=== PATIENT | female | born 1950 | race Caucasian/White ===

== ENCOUNTER → 2016-11-10 | Outpatient (CLI) | payer MEDICARE ==
--- NOTE | 2016-11-11 10:40 | MM ---
Reason for exam: screening (asymptomatic). Last mammogram was performed 1 year and 1 month ago. History: Patient is postmenopausal and has history of endometrial cancer at age 27. Took estrogen for 27 years. Physical Findings: A clinical breast exam by your physician is recommended on an annual basis and results should be correlated with mammographic findings. MG 3D Screening Mammo W/Cad Bilateral CC and MLO view(s) were taken. Prior study comparison: October 24, 2015, bilateral MG 3d screening mammo w/cad. October 10, 2014, bilateral MG screening mammo w CAD. The breast tissue is almost entirely fat. There is no discrete abnormality. No significant changes when compared with prior studies. ASSESSMENT: Negative, BI-RAD 1 RECOMMENDATION: Routine screening mammogram of both breasts in 1 year.
== END | disposition home or self-care (01) ==
LOC: RADMAMWWP 15:06
PROVIDERS: ATTEND Internal Medicine
DX: Z12.31 Encounter for screening mammogram for malignant neoplasm of breast (principal)
CPT/HCPCS: 77063; G0202

== ENCOUNTER → 2017-11-15 | Outpatient (CLI) | payer MEDICARE ==
--- NOTE | 2017-11-15 16:39 | BD ---
EXAMINATION TYPE: Axial Bone Density DATE OF EXAM: 11/15/2017 CLINICAL HISTORY: Height: 65 & 3/4 Weight: 143 FRAX RISK QUESTIONS: Alcohol (3 or more units per day): no Family History (Parent hip fracture): no Glucocorticoids (More than 3mos): no (Ex: prednisone, prednisolone, methylprednisolone, dexamethasone, and hydrocortisone). History of Fracture in Adulthood: no Secondary Osteoporosis: 1. Type 1 Diabetes: no 2. Hyperthyroidism: no 3. Menopause before 45: hysterectomy age 27 4. Malnutrition: no 5. Chronic liver disease: no Rheumatoid Arthritis: yes Current Tobacco Use: no RISK FACTORS HISTORY OF: Family History of Osteoporosis: no Active: yes Diet low in dairy products/other sources of calcium: not daily, several times a week Postmenopausal woman: yes Take estrogen and/or progesterone medications: not now How long: about 27years Lost more than 2 inches in height since high school: unsure Frequent falls: no Poor Health: no Hyperparathyroidism: no Adrenal Insufficiency: no MEDICATIONS: Prednisone or other steroids: no Thyroid Medications: no Which medication: Levothyroxine How Long: at least 10 years Osteoporosis Medications: no Additional Medications: fish oil, blood pressure meds, cholesterol meds Additional History: endometrial CA age 27 EXAM MEASUREMENTS: Bone mineral densitometry was performed using the [employer] System. Bone mineral density as measured about the Lumbar spine is: ----- L1-L4(G/cm2): 1.144 T Score Values are as follows: ----- L2: -1.5 ----- L3: -0.9 ----- L4: 2.1 ----- L1-L4: -0.3 Bone mineral density has: Increased 4.0% since study of: 08/18/2010 Bone mineral density about the R hip (g/cm2): 0.721 Bone mineral density about the L hip (g/cm2): 0.828 T Score values are as follows: -----R Neck: -2.3 -----L Neck: -1.5 -----R Total: -1.8 -----L Total: -1.5 Bone mineral density has: Decreased -7.9% since study of: 08/18/2010 IMPRESSION: Osteopenia (T Score between -2.5 and -1). There is slightly increased risk of fracture and the patient may be considered for treatment. Re-Screen 2-5 years. NOTE: T-SCORE=SD OF THE YOUNG ADULT MEAN.
--- NOTE | 2017-11-16 08:04 | MM ---
Reason for exam: screening (asymptomatic). Last mammogram was performed 1 year ago. History: Patient is postmenopausal and has history of endometrial cancer at age 27. Took estrogen for 27 years. Physical Findings: A clinical breast exam by your physician is recommended on an annual basis and results should be correlated with mammographic findings. MG 3D Screening Mammo W/Cad Bilateral CC and MLO view(s) were taken. Prior study comparison: November 10, 2016, bilateral MG 3d screening mammo w/cad. October 24, 2015, bilateral MG 3d screening mammo w/cad. There are scattered fibroglandular densities. No significant changes when compared with prior studies. ASSESSMENT: Benign, BI-RAD 2 RECOMMENDATION: Routine screening mammogram of both breasts in 1 year.
== END | disposition home or self-care (01) ==
LOC: RADMAMWWP 07:22
PROVIDERS: ATTEND Internal Medicine Geriatric Medicine
DX: Z12.31 Encounter for screening mammogram for malignant neoplasm of breast (principal); Z13.820 Encounter for screening for osteoporosis; M85.80 Other specified disorders of bone density and structure, unspecified site
CPT/HCPCS: 77063; 77067; 77080

== ENCOUNTER → 2018-10-27 | Outpatient (CLI) | payer MEDICARE ==
--- NOTE | 2018-10-27 16:44 | XR ---
Lumbosacral spine HISTORY: Low back pain 5 views of the lumbosacral spine There is a dextroscoliosis centered at L3-4. There is multilevel spondylosis. No evident spondylolysi s. Lumbar vertebral bodies show preserved height. Bone mineralization is reduced. Loss of disc height present especially L4-5 with associated vacuum phenomenon. Sclerosis present in the posterior elemen ts. Vascular calcifications are noted incidentally. IMPRESSION: Scoliosis, degenerative disc disease, osteopenia, facet arthropathy.
== END | disposition home or self-care (01) ==
LOC: LABWHC1 10:56
PROVIDERS: ATTEND Nurse Practitioner Family
DX: M51.37 Other intervertebral disc degeneration, lumbosacral region (principal); M46.97 Unspecified inflammatory spondylopathy, lumbosacral region; M41.87 Other forms of scoliosis, lumbosacral region; M85.88 Other specified disorders of bone density and structure, other site
CPT/HCPCS: 72110

== ENCOUNTER → 2018-12-23 | Outpatient (CLI) | payer MEDICARE ==
--- NOTE | 2018-12-25 09:41 | MM ---
Reason for exam: screening (asymptomatic). Last mammogram was performed 1 year and 1 month ago. History: Patient is postmenopausal and has history of endometrial cancer at age 27. Took hormonal contraceptives for 7 years. Took estrogen for 27 years. Physical Findings: A clinical breast exam by your physician is recommended on an annual basis and results should be correlated with mammographic findings. MG Screening Mammo w CAD Bilateral CC and MLO view(s) were taken. Prior study comparison: November 15, 2017, bilateral MG 3d screening mammo w/cad. November 10, 2016, bilateral MG 3d screening mammo w/cad. There are scattered fibroglandular densities. There is no discrete abnormality. No significant changes when compared with prior studies. ASSESSMENT: Negative, BI-RAD 1 RECOMMENDATION: Routine screening mammogram of both breasts in 1 year.
== END | disposition home or self-care (01) ==
LOC: RADMAMWWP 08:31
PROVIDERS: ATTEND Internal Medicine Geriatric Medicine
DX: Z12.31 Encounter for screening mammogram for malignant neoplasm of breast (principal)
CPT/HCPCS: 77067

== ENCOUNTER → 2019-10-03 | Outpatient (CLI) | payer MEDICARE ==
--- NOTE | 2019-10-03 23:09 | MR ---
EXAMINATION TYPE: MR lumbar spine wo/w con DATE OF EXAM: 10/03/2019 COMPARISON: Lumbar spine x-ray October 27, 2018 HISTORY: Spinal enthesopathy, lumbar, lower back and left leg pain for 1 year per patient. TECHNIQUE: Multiplanar, multisequence images of the lumbar spine is performed without and with IV contrast, util izing 6.5 mL intravenous Gadavist FINDINGS: There is persistent dextroconvex scoliosis centered at L3-L4 level. Sagittal images of the lumbar spine show vertebral body heights to remain satisfactory. Alignment is straightened. Multileve l disc desiccation with advanced disc space narrowing L3-L4 and L4-L5 levels. Moderate disc space francisca rowing with vacuum disc phenomenon seen at L1-L2 and L2-L3 levels. Moderate multilevel anterior spurr ing. Heterogeneous Modic type I endplate changes and anterior L3-L4 and Modic type II endplate change s anteriorly L4-L5 levels. No suspicious postcontrast enhancement. The conus medullaris is normal in position and signal ending at mid L1 level. Axial images show the T12-L1 level to appear within normal limits. Axial images at L1-L2 level shows slight grade 1 anterolisthesis. There is mild to moderate broad dis c bulge with right paracentral disc protrusion component facing anterior thecal sac. Bilateral neural foramina are patent. Axial images at L2-L3 level show moderate broad disc bulge effacing the anterior thecal sac and mild facet degenerative changes bilaterally. There is mild to moderate right greater than left bilateral a nterior inferior neural foraminal narrowing. Axial images at L3-L4 level show spondylolisthesis with advanced broad disc bulge and mild/moderate f acet degenerative changes and ligamentum flavum hypertrophy. Most prominent spinal canal effacement s een at this level axial image 13. There is mild to moderate right-sided and more severe left-sided ne ural foraminal narrowing, for reference axial image 5 shows encroachment along the anterior inferior left L3 nerve corresponding to axial image 13. Axial images at L4-L5 level show moderate to advanced broad-based posterior disc protrusion with post erior spurring. There is moderate to advanced facet arthropathy right greater than left. There is eff acement of the anterior and right lateral thecal sac. There is moderate to advanced bilateral neural foraminal narrowing with likely encroachment on both L4 nerves. Axial images at L5-S1 level show mild/moderate facet degenerative changes bilaterally. Spinal canal i s preserved. Bilateral neural foramina are patent. No suspicious incidental retroperitoneal findings. IMPRESSION: Scoliotic curvature of lumbar spine with multilevel spondylolisthesis and multilevel mode rate to advanced degenerative changes greatest at L3-L4 and L4-L5 levels as detailed above.
== END | disposition home or self-care (01) ==
LOC: RADMRIMAIN 18:03
PROVIDERS: ATTEND Internal Medicine Geriatric Medicine
DX: M41.86 Other forms of scoliosis, lumbar region (principal); M43.16 Spondylolisthesis, lumbar region; M47.896 Other spondylosis, lumbar region
CPT/HCPCS: 72158; A9585

== ENCOUNTER → 2020-01-11 | Outpatient (CLI) | payer MEDICARE ==
--- NOTE | 2020-01-11 15:53 | BD ---
EXAMINATION TYPE: Axial Bone Density DATE OF EXAM: 01/11/2020 COMPARISON: DEXA bone scan November 15, 2017 CLINICAL HISTORY: Postmenopausal female. Age related osteoporosis. Height: 66 Weight: 140.0 FRAX RISK QUESTIONS: Alcohol (3 or more units per day): no Family History (Parent hip fracture): no Glucocorticoids (More than 3mos): no (Ex: prednisone, prednisolone, methylprednisolone, dexamethasone, and hydrocortisone). History of Fracture in Adulthood: no Secondary Osteoporosis: 1. Type 1 Diabetes: no 2. Hyperthyroidism: no 3. Menopause before 45: no 4. Malnutrition: no 5. Chronic liver disease: no Rheumatoid Arthritis: yes Current Tobacco Use: no RISK FACTORS HISTORY OF: Family History of Osteoporosis: no Active: yes Diet low in dairy products/other sources of calcium: yes Postmenopausal woman: yes Lost more than 2 inches in height since high school: no MEDICATIONS: blood [pressure meds, cholesterol meds Thyroid Medications: levothyroxine How Lon years Additional History: EXAM MEASUREMENTS: Bone mineral densitometry was performed using the [employer] System. Bone mineral density as measured about the Lumbar spine is: ----- L1-L4(G/cm2): 1.199 T Score Values are as follows: ----- L2: -1.7 ----- L3: 0.1 ----- L4: 303 ----- L1-L4: 0.2 Bone mineral density has: increased 6.9 % since study of: 11.15.2017 Bone mineral density about the R hip (g/cm2): 0.679 Bone mineral density about the L hip (g/cm2): 0.806 T Score values are as follows: -----R Neck: -2.6 -----L Neck: -1.7 -----R Total: -2.3 -----L Total: -2.0 Bone mineral density has: decreased -8.1 % since study of: 11.15.2017 IMPRESSION: Osteoporosis (T Score less than -2.5) femoral neck level right hip now is present. There is increased fracture risk and therapy is usually indicated based on age. Re-Screen 1-2 years. NOTE: T-SCORE=SD OF THE YOUNG ADULT MEAN.
--- NOTE | 2020-01-15 08:23 | MM ---
Reason for exam: screening (asymptomatic). Last mammogram was performed 1 year and 1 month ago. History: Patient is postmenopausal and has history of endometrial cancer at age 27. Took hormonal contraceptives for 7 years. Took estrogen for 27 years. Physical Findings: A clinical breast exam by your physician is recommended on an annual basis and results should be correlated with mammographic findings. MG 3D Screening Mammo W/Cad Bilateral CC and MLO view(s) were taken. Prior study comparison: December 23, 2018, bilateral MG screening mammo w CAD. November 15, 2017, bilateral MG 3d screening mammo w/cad. There are scattered fibroglandular densities. No significant changes when compared with prior studies. ASSESSMENT: Negative, BI-RAD 1 RECOMMENDATION: Routine screening mammogram of both breasts in 1 year.
== END | disposition home or self-care (01) ==
LOC: RADMAMWWP 14:22
PROVIDERS: ATTEND Internal Medicine Geriatric Medicine
DX: Z12.31 Encounter for screening mammogram for malignant neoplasm of breast (principal); M81.0 Age-related osteoporosis without current pathological fracture
CPT/HCPCS: 77063; 77067; 77080

== ENCOUNTER → 2021-01-15 | Outpatient (CLI) | payer MEDICARE ==
--- NOTE | 2021-01-16 15:01 | MM ---
Reason for exam: screening (asymptomatic). Last mammogram was performed 1 year ago. History: Patient is postmenopausal and has history of endometrial cancer at age 27. Took hormonal contraceptives for 7 years. Took estrogen for 27 years. Physical Findings: A clinical breast exam by your physician is recommended on an annual basis and results should be correlated with mammographic findings. MG 3D Screening Mammo W/Cad Bilateral CC and MLO view(s) were taken. Prior study comparison: January 11, 2020, bilateral MG 3d screening mammo w/cad. December 23, 2018, bilateral MG screening mammo w CAD. There are scattered fibroglandular densities. No significant changes when compared with prior studies. ASSESSMENT: Benign, BI-RAD 2 RECOMMENDATION: Routine screening mammogram of both breasts in 1 year.
== END | disposition home or self-care (01) ==
LOC: RADMAMWWP 09:52
PROVIDERS: ATTEND Internal Medicine Geriatric Medicine
DX: Z12.31 Encounter for screening mammogram for malignant neoplasm of breast (principal); Z78.0 Asymptomatic menopausal state; Z85.42 Personal history of malignant neoplasm of other parts of uterus
CPT/HCPCS: 77063; 77067

== ENCOUNTER → 2021-10-09 | Outpatient (CLI) | payer MEDICARE ==
--- NOTE | 2021-10-09 18:02 | MR ---
EXAMINATION TYPE: MR lumbar spine wo con DATE OF EXAM: 10/09/2021 COMPARISON: Radiograph from 1122 HISTORY: 71-year-old female M47.26, Low back pain, spondylosis TECHNIQUE: Multiplanar, multisequence images of the lumbar spine were acquired without IV contrast. FINDINGS: There is a marked degenerated dextroconvex scoliosis centered along the mid to lower lumbar spine. Se seun associated degenerative disc disease along the left side of concavity with edematous Modic type I endplate change at L2-L3 and mixed type I and type II endplate change at L3-L4. Vertebral body heights are preserved. Degenerative grade 1 anterolisthesis L1-L2. Degenerative grade 1 retrolisthesis L4-L5. There are left lateral subluxations at L1-L2 and L2-L3. Conus medullaris is normal. Vertebral body heights are preserved. At T12-L1, mild disc bulge. No significant canal or foraminal stenosis. At L1-L2, there is facet arthropathy, trace grade 1 anterolisthesis, bulging disc. There is mild flat tening of the thecal sac but no significant spinal canal stenosis. Changes result in moderate right n euroforaminal stenosis. At L2-L3, diffuse disc bulge with ligamentum flavum thickening and facet arthropathy. Mild overall sp inal canal stenosis and moderate bilateral neuroforaminal stenosis. Disc material abuts the intrafora paula right L2 nerve root. At L3-L4, hypertrophic facet arthropathy with ligamentum flavum thickening and diffuse disc bulge. Th ere is mild overall spinal canal stenosis as well as left lateral recess stenosis. Changes result in moderate to severe left and moderate right neuroforaminal stenosis. At L4-L5, hypertrophic facet arthropathy with ligamentum flavum thickening and degenerative grade 1 r etrolisthesis. Disc osteophyte complex formation. There is moderate overall spinal canal stenosis as well as right lateral recess stenosis. Changes result in moderate to severe right and moderate left n eural foraminal stenosis. At L5-S1, diffuse disc bulge, ligamentum flavum thickening, and facet arthropathy. Mild attenuation o f the thecal sac without significant spinal canal stenosis. Changes result in severe right and mild l eft neural foraminal stenosis. Large stool burden. Suspect an extrarenal pelvis right kidney. IMPRESSION: 1. Markedly degenerated dextroconvex scoliosis centered along the mid to lower lumbar spine. Advanced degenerative disc disease along the left side of concavity with mixed Modic type I and type II endpl ate change at L2-L3 and L3-L4. 2. Multilevel hypertrophic facet arthropathy and ligamentum flavum thickening. Degenerative grade 1 s pondylolisthesis L1-L2 and L4-L5. Degenerative left lateral subluxations at L1-L2 and L2-L3. 3. At L4-L5, moderate overall spinal canal stenosis along with right lateral recess stenosis. Moderat e to severe right and moderate left neuroforaminal stenosis. 4. At L3-L4, mild overall spinal canal stenosis as well as left lateral recess stenosis. Moderate to severe left and moderate right neural foraminal stenosis. 5. At L2-L3, mild overall spinal canal stenosis and moderate bilateral neuroforaminal stenosis. Disc material abuts the intraforaminal right L2 nerve root. 6. At L5-S1, severe right neuroforaminal stenosis.
== END | disposition home or self-care (01) ==
LOC: RADMRIMAIN 12:50
PROVIDERS: ATTEND Orthopaedic Surgery
DX: M51.26 Other intervertebral disc displacement, lumbar region (principal); M48.061 Spinal stenosis, lumbar region without neurogenic claudication; M99.73 Connective tissue and disc stenosis of intervertebral foramina of lumbar region
CPT/HCPCS: 72148

== ENCOUNTER → 2021-10-12 | Outpatient (CLI) | payer MEDICARE ==
[2021-10-12 12:51] VITALS: BP 158/71; PULSE 63; RESP 18; TEMP 98.1
--- NOTE | 2021-10-12 15:05 | P.PAINPG ---
PQRS Measure Charge Sheet Comment: HISTORY OF PRESENT ILLNESS: 71 yr old female as a referral from [facility], [place] presents today w severe and chronic LBP secondary to spinal stenosis, DDD, neuroforaminal stenoses and facet arthropathy for evaluation. Pt states her pain level is currently at 7/10 in intensity, constant, burning, sore, achy in character, localized in the lower aspect of uri lumbar spine w radiation to the RLE. Palliated with injections in the past at [facility], medications (Voltaren gel), patches, sitting and rest. She has not tried PT, chiropractic treatments or massage therapy. PMH: HTN, Hyperlipidemia, Hypothyroidism, RA, OA, Seasonal Allergies PSH: Colonoscopy, Hysterectomy (1978), C section (1974) SH: Negative x 3 FH: Non contributory All: NKDA Meds: See list REVIEW OF ORGAN SYSTEMS: CONSTITUTIONAL: No fevers or chills. No recent weight loss. NEUROLOGICAL: + numbness and tingling along the distal extremities. No seizure disorders or headaches. MUSCULOSKELETAL: + pain PSYCHIATRIC: Denies current depression or suicidal thoughts. Physical Examinations : Constitutional : Cooperative , not in acute distress . Neurologic : Cranial nerve II to XII intact. No focal neurological deficits. Psychiatric : alert & oriented x 3. Matching mood & appropriate affect. Judgment & insight intact. Musculoskeletal : Cervical Spine Motor strength in the deltoid and biceps: Normal right side. Normal Left side Motor strength biceps and the wrist extensors: Normal right side . Normal left side Motor strength in the triceps muscle: Normal right side. Normal left side Deep tendon reflexes: Normal at the biceps. Normal at Brachioradialis. Normal at triceps Vertebral body tenderness to deep palpation over Cervical facet loading test: positive bilaterally Spurling test: positive bilaterally Neck distraction test: positive bilat erally Nelda sign: positive bilaterally Lumbar spine Motor strength lower extremities ,thigh and legs 5/5 Right side , 5/5 Left side Deep tendon reflexes : Normal Knee Jerk. Normal Ankle Jerk Vertebral body tenderness over L4 Lumbar facet Loading Test: positive Right / positive Left Range of motion of the lumbar spine Flexion 30 degrees, extension 10 degrees Straight Leg Raise test: Left/ Right positive at 30 degree Kian test: positive right / positive left. Severe tenderness over the Sacroiliac joint on the Right / Left sides Gaenslen test: positive bilaterally Seated flexion test: positive bilate rally. Sacral spine : Severe tenderness over the Sacroiliac joint: right side / left side Range of motion: Flexion of the lumbar spine <60 degrees Range of motion: Extension of the lumbar spine <20 degrees Gaenslen's Test positive Victor Manuel's Test positive Kian test: positive right side / left side Thigh Thrust Test Sacral Thrust Test Imaging: MRI without contrast of the lumbar spine from 10/09/21 reviewed Assessment/ Plan : Lumbar stenosis, Lumbar DDD Recommendation of R TFESI L4-L5. May need a series of injections, up to 3 within a 6 mo period, for optimal pain relief. Risks, benefits of procedure discussed and patient verbalized understanding. Denies aspirin or anti- coagulant use or medical history of diabetes. Protocol for discontinuation/ continuation of medications monalisa procedure discussed. All questions answered. I have spent greater than 30 minutes on patient care today. Dr Aguilera was available by phone for the evaluation of this patient. The time was used to review the medical records including relevant urine studies and Prescription history (MAPs), review of the available imaging, evaluation and examination of the patient, coordination of care with the medical staff and if applicable referring physicians, as well as creation of the medical record PQRS Narrative: Smoking Status Former smoker Home Medications: Ambulatory Orders Aspirin 81 mg PO DAILY 10/29/14 Fexofenadine/Pseudoephedrine [Melanie-D 12 Hour Tablet] 1 tab PO DAILY PRN 10/29/14 Levothyroxine Sodium [Synthroid] 100 mcg PO QAM 10/29/14 Lisinopril/Hydrochlorothiazide [Lisinopril-Hctz 10-12.5 mg Tab] 1 tab PO QAM 10/29/14 [place]-3 Fatty Acids/Fish Oil [Fish Oil 1,000 mg Softgel] 1 cap PO DAILY 10/29/14 Controlled Substance Measures - Controlled Substance Measures Is patient prescribed a controlled substance at discharge?: No
== END ==
LOC: PNWHC3 10:00
PROVIDERS: ATTEND Specialist
DX: M47.26 Other spondylosis with radiculopathy, lumbar region (principal); Z87.891 Personal history of nicotine dependence
CPT/HCPCS: 99211

== ENCOUNTER → 2021-11-23 | Outpatient (CLI) | payer MEDICARE ==
[2021-11-23 10:56] VITALS: BP 186/86; PULSE 60; RESP 18
--- NOTE | 2021-11-23 16:19 | P.PAINPG ---
PQRS Measure Charge Sheet Comment: A 71 yr old female with a history of severe and chronic low back pain secondary to lumbar degenerative disc diseases and lumbar spondylosis with facet arthropathy without myelopathy presents today for evaluation s/p R TFESI L4-L5. Pt states she experienced 50% pain relief x 2 wks s/p procedure. Pain level is currently at 6/10 in intensity, constant, achy/ sharp/ shooting towards the RLE. Pain is provoked by walking/standing for periods of 10 min or more. Pain is alleviated with medications (Aleve, Baclofen), home stretching regimen, topicals, sitting, repositioning and rest. Interventional pain procedures completed include R TFESI L4-L5 Patient is currently on Baclofen, Aleve OTC. Patient denies any side effects of the medication(s), denies excessive drowsiness or sleepiness, denies suicidal ideation and reports that the current pain medication is helping to control the pain and improve activities of daily living. Patient denies any motor or sensory deficits. Patient denies any fever or night sweats, denies any change in the bowel movements or urination. Physical Examination: -Constitutional: Cooperative. Not in acute distress . - Neurologic: Cranial nerve II to XII intact. No focal neurological deficits. - Psychatric: Alert & oriented x 3. Matching mood & appropriate affect. Judgmen t and insight intact. - Musculoskeletal: Cervical spine: Muscle bulk/ tone/ strength in the bilateral upper extremities normal Vertebral body tenderness to palpation over Spurling test positive Distraction test positive Facet loading test positive Thoracic spine Muscle bulk / tone/ strength in the bilateral paraspinal muscles normal Vertebral body tender to palpation over Facet loading test positive Lumbar spine: Motor bulk/ tone/ strength lower extremities , thigh and legs : 5/5 Deep tendon reflexes : Normal Knee Jerk. Normal Ankle Jerk . Vertebral body tenderness to palpation over L4 Lumbar Facet Loading Test positive Straight Leg Raise: positive at 30 degrees right side/ left side Gaenslen's Test positive Sacral spine : Severe tenderness over the Sacroiliac joint: right side / left side Range of motion: Flexion of the lumbar spine <60 degrees Range of motion: Extension of the lumbar spine <20 degrees Gaenslen's Test positive Victor Manuel's Test positive Kian test: positive right side / left side Thigh Thrust Test Sacral Thrust Test Assessment and plan: Chronic low back pain secondary to lumbar degenerative disc disease , lumbar spondylosis with facet arthropathy without myelopathy Recommendation of R TFESI L4-L5 #2. May need a series of injections, up to 3 within a 6 mo period, for optimal pain relief. Risks, benefits of procedure discussed and pt verbalized understanding. Denies anticoagulant use or medical history of diabetes. All patient questions answered MAPS reviewed and it was appropriate. I have spent less than 30 minutes on patient care today. Dr Aguilera was available by phone for the evaluation of this patient. The time was used to review the medical records including relevant urine studies and Prescription history (MAPs), review of the available imaging, evaluation and examination of the patient, coordination of care with the medical staff and if applicable referring physicians, as well as creation of the medical record PQRS Narrative: Smoking Status Former smoker Hx Alcohol Use (MH) Yes: OCCASIONAL Home Medications: Ambulatory Orders Fexofenadine/Pseudoephedrine [Melanie-D 12 Hour Tablet] 1 tab PO DAILY PRN 10/29/14 Levothyroxine Sodium [Synthroid] 100 mcg PO QAM 10/29/14 Lisinopril/Hydrochlorothiazide [Lisinopril-Hctz 10-12.5 mg Tab] 1 tab PO QAM 10/29/14 [place]-3 Fatty Acids/Fish Oil [Fish Oil 1,000 mg Softgel] 1 cap PO DAILY 10/29/14 Naproxen Sodium [Aleve] 220 mg PO BID 10/30/21 Baclofen 5 mg PO DAILY 11/23/21 Controlled Substance Measures - Controlled Substance Measures Is patient prescribed a controlled substance at discharge?: No
== END ==
LOC: PNWHC3 10:37
PROVIDERS: ATTEND Specialist
DX: M51.36 Other intervertebral disc degeneration, lumbar region (principal); M47.816 Spondylosis without myelopathy or radiculopathy, lumbar region; Z87.891 Personal history of nicotine dependence; G89.29 Other chronic pain
CPT/HCPCS: 99211

== ENCOUNTER 2021-12-24 06:22 | Day surgery (SDC) | payer MEDICARE ==
[2021-12-24 06:55] VITALS: TEMP 98.3
[2021-12-24] MEDS ORDERED: LACTATED RINGERS 1,000 ML IV ONE (06:57)
[2021-12-24] MEDS ORDERED: MIDAZOLAM 2 MG/2 ML VIAL ONE (07:02)
[2021-12-24] MEDS ORDERED: DEXAMETHASONE SOD PHOSPHATE 10 MG/ML 1 ML VIAL ONE (07:02)
[2021-12-24] MEDS ORDERED: fentaNYL (PF) 50 MCG/ML 2 ML AMP ONE (07:02)
[2021-12-24] MEDS ORDERED: IOPAMIDOL M200 10 ML VIAL ONE (07:02)
--- NOTE | 2021-12-24 07:20 | P.PCN ---
Date of Procedure: 12/24/21 Description of Procedure: PREOPERATIVE DIAGNOSIS: Lumbar lumbar spondylosis without myelopathy, Lumbar radiculopathy. POSTOPERATIVE DIAGNOSIS: Lumbar spondylosis without myelopathy, and Lumbar radiculopathy. PROCEDURE: 1) right side L5-LS1 Transforaminal epidural steroid injection under fluoroscopic guidance, 2) Epidurogram SURGEON: Fco Pascal MD ANESTHESIA: Local 1% lidocaine, and IV sedation: Versed, and fentanyl. Sedation time: EBL: None. Specimen removed: None Fluoroscopic imaging: saved to electronic medical record PROCEDURE INDICATION: The patient with continued lumbar pain with radiculopathy, and intervertebral disc disease without myelopathy that has failed to respond to adequate conservative management. Patient had improvement of >80% with previous TFESI for >4 weeks. Currently 50% since first TFESI overall PROCEDURE DESCRIPTION: The patient was seen and identified in the preoperative area. Risks, benefits, complications, and alternatives were discussed with the patient. The patient agreed to proceed with the procedure and signed the consent. IV was started, and vital signs were stable. Patient was taken to the OR and time out was completed. The patient was placed in the prone position on procedure table and a pillow was placed under the abdomen to reduce lumbar lordosis. The lumbosacral area was prepped with ChloraPrep 1 and draped in the usual sterile fashion. Critical pause was taken. Vital signs were closely monitored during the procedure. Using oblique fluoroscopy, the chin of the Adarsh dog L5 was identified, and the skin and deeper tissues just below was localized with 1% lidocaine. 22-guage 3.5-inch spinal needles were used for the procedure. The needles were guided by fluoroscopy just underneath the chin of the Adarsh dog of L5. Under AP fluoroscopy, the needles were advanced to the 6 o'clock position of the L5 pedicle. After negative aspiration of CSF and blood and with no paresthesias, 1 mL of [id number] contrast dye was injected anterior epidural spread and outlining of the L5 nerve root. 3 mL of block solution injected after negative aspiration. Block solution contained 10 mg of dexamethasone, with 2 mL of normal saline preservative-free. Needle was removed intact, skin was cleansed, and bandages were applied. COMPLICATIONS: None. DISPOSITION : The patient was placed in a supine position and transferred to the recovery area in a stable condition for observation and was discharged from the recovery room after meeting discharge criteria. Home discharge instructions given to the patient by the staff. The patient was reexamined prior to discharge. The patient will schedule repeat injection in 4 weeks duration.
[2021-12-24] MEDS ORDERED: IV FLUID CONTINUATION 1,000 ML IV ONE (07:21)
[2021-12-24 07:25] VITALS: RESP 18
[2021-12-24 07:39] VITALS: BP 155/81; PULSE 65
--- NOTE | 2021-12-24 09:21 | FL ---
EXAMINATION TYPE: FL guided pain mgmt statistic DATE OF EXAM: 12/24/2021 HISTORY: Fluoroscopy time 5 seconds of fluoroscopy provided. IMPRESSION: 1. Fluoroscopy time.
== END 2021-12-24 07:50 | disposition home or self-care (01) ==
LOC: ORPAIN 06:22
PROVIDERS: ATTEND Anesthesiology
DX: M47.26 Other spondylosis with radiculopathy, lumbar region (principal)
CPT/HCPCS: 64483; J2250; J1100; J3010; Q9966; 99152

== ENCOUNTER → 2022-04-01 | Outpatient (CLI) | payer MEDICARE ==
--- NOTE | 2022-04-02 13:13 | BD ---
EXAMINATION TYPE: Axial Bone Density DATE OF EXAM: 04/01/2022 COMPARISON: 01/11/2020 CLINICAL HISTORY: 71 years year old Female. ICD-10 CODE: M81.0 OSTEOPOROSIS Nuclear Medicine Study in the last 2 weeks: Barium Study in the last week: : Height: Weight: FRAX RISK QUESTIONS: Alcohol (3 or more units per day): NO Family History (Parent hip fracture): NO Glucocorticoids (More than 3mos): YES History of Fracture in Adulthood: NO Secondary Osteoporosis: 1. Type 1 Diabetes: NO 2. Hyperthyroidism: NO 3. Menopause before 45: YES 4. Malnutrition: NO 5. Chronic liver disease: NO Rheumatoid Arthritis: YES Current Tobacco Use: NO RISK FACTORS HISTORY OF: Hip Fracture (Right/Left): NO Spine Fracture: NO History of Wrist Fracture: NO Surgery to Spine/Hip(right/left)/Wrist (right/left): NO Family History of Osteoporosis: NO Active: SOMEWHAT Diet low in dairy products/other sources of calcium: YES Postmenopausal woman: YES Take estrogen and/or progesterone medications: NO Lost more than 2 inches in height since high school: YES Frequent falls: NO Poor Health: NO Hyperparathyroidism: NO Adrenal Insufficiency: NO MEDICATIONS: Prednisone or other steroids: METHOTREXATE How Long: PAST 5 YEARS Thyroid Medications: SYNTHROID Which medication: PAST 10 YEARS Osteoporosis Medications: NO Additional Medications: BP MEDS, CHOLESTEROL MEDS, REFLUX MEDS, DEPRESSION MEDS, FISH OIL, VIT D, FOL IC ACID, CALCIUM, EXAM MEASUREMENTS: Bone mineral densitometry was performed using the [employer] System. Bone mineral density as measured about the Lumbar spine is: ----- L1-L4(G/cm2): 0.983 T Score Values are as follows: ----- L1: -2.9 ----- L2: -2.7 ----- L3: -1.0 ----- L4: 0.7 ----- L1-L4: -1.6 Bone mineral density has: DECREASED -16.8 % since study of: 01/11/2020 Bone mineral density about the R hip (g/cm2): 0.681 Bone mineral density about the L hip (g/cm2): 0.762 T Score values are as follows: -----R Neck: -2.6 -----L Neck: -2.0 -----R Total: -2.3 -----L Total: -2.4 Bone mineral density has: DECREASED -3.5 % since study of: 01/11/2020 FRAX%s: The graph provided illustrates a 29.7% chance for a major osteoporotic fx and a 11.0% chance for the hips probability for fx in 10 years time. IMPRESSION: Osteoporosis (T Score less than -2.5). There is increased fracture risk and therapy is usually indicated based on age. Re-Screen 1-2 years. NOTE: T-SCORE=SD OF THE YOUNG ADULT MEAN.
--- NOTE | 2022-04-04 19:23 | MM ---
Reason for Exam: Screening (asymptomatic). Last mammogram was performed 1 year(s) and 2 month(s) ago. Patient History: Menarche at age 14. First Full-Term at age 21. Left ovary removed at age 27. Right ovary removed at age 27. Hysterectomy at age 27. Postmenopausal. Patient used Estrogen for 27 years. Patient used Hormonal Contraceptives for 7 years. Risk Values: Liz 5 year model risk: 1.4%. NCI Lifetime model risk: 4.0%. Prior Study Comparison: 12/23/2018 Bilateral Screening Mammogram, [facility]. 01/11/2020 Bilateral Screening Mammogram, [facility]. 01/15/2021 Bilateral Screening Mammogram, [facility]. Tissue Density: There are scattered fibroglandular densities. Findings: Analyzed By CAD. There is no suspicious group of microcalcifications or new suspicious mass in either breast. Overall Assessment: Negative, BI-RAD 1 Management: Screening Mammogram of both breasts in 1 year. 1. Patient should continue monthly self breast exams. 2. A clinical breast exam by your physician is recommended on an annual basis. 3. This exam should not preclude additional follow-up of suspicious palpable abnormalities. Electronically signed and approved by: Brenda Ivey M.D. Radiologist
== END | disposition home or self-care (01) ==
LOC: RADBDWWP 16:07
PROVIDERS: ATTEND Internal Medicine Geriatric Medicine
DX: Z12.31 Encounter for screening mammogram for malignant neoplasm of breast (principal); M81.0 Age-related osteoporosis without current pathological fracture; Z78.0 Asymptomatic menopausal state; Z79.52 Long term (current) use of systemic steroids
CPT/HCPCS: 77063; 77067; 77080

== ENCOUNTER → 2023-05-09 | Outpatient (CLI) | payer MEDICARE ==
--- NOTE | 2023-05-09 16:11 | MM ---
Reason for Exam: Screening (asymptomatic). Last mammogram was performed 1 year(s) and 1 month(s) ago. Patient History: Menarche at age 14. First Full-Term at age 21. Left ovary removed at age 27. Right ovary removed at age 27. Hysterectomy at age 27. Postmenopausal. Patient used Estrogen for 27 years. Patient used Hormonal Contraceptives for 7 years. Risk Values: Liz 5 year model risk: 1.4%. NCI Lifetime model risk: 3.8%. Prior Study Comparison: 01/11/2020 Bilateral Screening Mammogram, [facility]. 01/15/2021 Bilateral Screening Mammogram, [facility]. 04/01/2022 Bilateral MG 3D screening mammo w/cad, [facility]. Tissue Density: The breast tissue is heterogeneously dense. This may lower the sensitivity of mammography. Findings: Analyzed By CAD. The pattern is symmetrical. No significant interval change is evident No suspicious groups of microcalcifications, spiculated or lobular masses, architectural distortion or other secondary signs of malignancy are mammographically apparent. Overall Assessment: Benign, BI-RAD 2 Management: Screening Mammogram of both breasts in 1 year. A negative mammogram report should not preclude additional follow up of suspicious palpable abnormalities. Patient should continue monthly self breast exam. A clinical breast exam by your physician is recommended on an annual basis and results should be correlated with mammographic findings. Electronically signed and approved by: Abiodun Martinez D.O. Radiologis
== END | disposition home or self-care (01) ==
LOC: RADMAMWWP 09:35
PROVIDERS: ATTEND Internal Medicine Geriatric Medicine
DX: Z12.31 Encounter for screening mammogram for malignant neoplasm of breast (principal); Z78.0 Asymptomatic menopausal state
CPT/HCPCS: 77063; 77067

== ENCOUNTER → 2023-09-20 | Outpatient (CLI) | payer MEDICARE ==
--- NOTE | 2023-09-20 11:09 | CT ---
EXAMINATION TYPE: CT lumbar spine wo con CT DLP: 405.80 mGycm, Automated exposure control for dose reduction was used. DATE OF EXAM: 09/20/2023 10:47 AM COMPARISON: MR lumbar spine 10/09/2021, 10/03/2019. CLINICAL INDICATION:Female, 73 years old with history of M41.86 OTHER FORMS OF SCOLIOSIS, LUMBAR JOHN ON; PHH, Low back pain, other forms of scoliosis, no injury nor sx TECHNIQUE: Multiple axial images were obtained from the midportion of T11 through the sacroiliac bryce nts. Soft tissue and bone windows in coronal and sagittal planes were obtained and reviewed. Contrast used: none. Oral contrast used: none. FINDINGS: Alignment: There are 5 lumbar type vertebral bodies. Dextro scoliotic curvature of the lumbar spine w ith apex at L3-L4. No significant spondylolisthesis. Bone: No evidence of fracture is identified. Multilevel osteophytosis with endplate sclerosis and va cuum disc disease. Discs: T12-L1: No spinal canal or neural foraminal stenosis is identified. L1-L2: Broad-based disc bulge with mild effacement of the anterior thecal sac. Bilateral facet arthro pradeep. Mild right neural foraminal stenosis. The left neural foramen is patent. L2-L3: Broad-based disc bulge with ligamentum flavum buckling and bilateral facet arthropathy resulti ng in mild central canal stenosis. Lateral extension of the disc bulge to the right neural foramen. M ild left and moderate right neural foraminal stenosis. L3-L4: Broad-based disc bulge and ligamentum flavum buckling and bilateral facet arthropathy resultin g in mild central canal stenosis. Moderate left and [id number] right neural foraminal stenosis. L4-L5: Broad-based disc bulge with ligamentum flavum buckling. Bilateral facet arthropathy most prono unced on the right. This results in moderate central canal stenosis. Moderate bilateral neural forami nal stenosis. L5-S1: Broad-based disc bulge with mild effacement of the anterior thecal sac. Bilateral facet arthro pradeep resulting in mild bilateral neuroforaminal stenosis. 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 Atherosclerotic calcification of the aorta and its branches. IMPRESSION: 1. No evidence for spinal fracture. 2. Overall similar examination with markedly degenerated dextroconvex scoliosis of the mid to lower l umbar spine. 3. Advanced degenerative disease again demonstrated with multilevel facet arthropathy and ligamentum flavum thickening redemonstrated. L4-L5 moderate central canal stenosis and mild central canal stenos is at L1-L4 and L5-S1. Varying degrees of neural foraminal stenosis as described above. Please refer to dedicated MRI lumbar spine the same day for findings.
--- NOTE | 2023-09-20 20:57 | MR ---
EXAMINATION TYPE: MR lumbar spine wo con DATE OF EXAM: 09/20/2023 10:47 AM CLINICAL INDICATION:Female, 73 years old with history of M41.86 OTHER FORMS OF SCOLIOSIS, LUMBAR JOHN ON; PHH, Lumbar scoliosis, RLE radiculopathy. COMPARISON: None TECHNIQUE: Multi planar, multi sequence imaging was performed utilizing: T1-weighted, T2-weighted, a nd turbo inversion recovery imaging of the lumbar spine. IV Contrast: cc . (None if empty) FINDINGS: Alignment: The lumbar vertebral bodies have preserved heights with scoliotic alignment. DEXA scoliosi s apex right L3. Cord: The conus medullaris and the distal spinal cord appear unremarkable with regards to their signa l intensity and morphology. Bones/Discs: Severe degeneration changes of the spine with scoliosis. Dextroscoliosis apex L3. Reacti ve edema is mild adjoining endplates where there is degeneration and facet joint arthropathy. Pseudoa rthrosis of the right lateral process of L5 and the sacrum. T12-L1: No evidence of significant spinal canal stenosis or neural foraminal stenosis. L1-L2: Disc bulge and facet joint arthropathy result in mild spinal canal and mild to moderate bilate ral neural foraminal stenosis. L2-L3: Disc bulge and facet joint arthropathy result in mild spinal canal and severe right with vikki ened appearance of the exiting nerve and moderate left neural foraminal stenosis. L3-L4: Disc bulge and facet joint arthropathy result in mild spinal canal and severe left and moderat e right neural foraminal stenosis. L4-L5: Disc bulge and facet joint arthropathy result in moderate spinal canal and moderate severe lef t and severe right neural foraminal stenosis. L5-S1: The disc has a rounded posterior morphology without significant spinal canal stenosis. Facet j oint arthropathy with moderate to severe bilateral neural foraminal stenosis. No significant spinal canal or neural foraminal stenosis in the remainder of the visualized levels. Other findings: None. IMPRESSION: No definitive evidence of disc herniation or significant spinal canal stenosis. Severe disc degeneration with associated osteoarthritic changes and scoliosis. Multilevel neural foraminal stenosis of moderate, severe and moderate to severe severity as described above. Right neural foraminal stenosis worse at L4-L5 with severe, L3-L4 with moderate, L2-L3 severe right and L5-S1 moderate to severe bilateral. On the left worse at L3-L4 with severe left.
== END | disposition home or self-care (01) ==
LOC: RADCTMAIN 09:47
PROVIDERS: ATTEND Orthopaedic Surgery
DX: M51.16 Intervertebral disc disorders with radiculopathy, lumbar region (principal); M47.26 Other spondylosis with radiculopathy, lumbar region; M48.061 Spinal stenosis, lumbar region without neurogenic claudication; M41.86 Other forms of scoliosis, lumbar region; M99.73 Connective tissue and disc stenosis of intervertebral foramina of lumbar region; M24.28 Disorder of ligament, vertebrae
CPT/HCPCS: 72131; 72148

== ENCOUNTER → 2023-12-28 | Outpatient (CLI) | payer MEDICARE ==
--- NOTE | 2023-12-28 13:43 | XR ---
EXAMINATION TYPE: XR chest 2V DATE OF EXAM: 12/28/2023 COMPARISON: NONE TECHNIQUE: PA and lateral views submitted. HISTORY: Presurgical FINDINGS: The lungs are clear and there is no pneumothorax, pleural effusion, or focal pneumonia. Heart size normal and no overt failure. Osseous structures demonstrate hypertrophic and degenerative changes of the spine. Changes of COPD. Osteopenia. Atherosclerotic change aorta. Nodular densities overlying the anterior margin are likely secondary to the first rib. Vague nodular density in the left upper lobe. IMPRESSION: 1. No acute process. 2. Recommend short-term follow-up apical lordotic view to assess the bilateral lung apices. [facility], , 12/28/2023 1:41 PM
== END | disposition home or self-care (01) ==
LOC: RADXRMAIN 13:24
PROVIDERS: ATTEND Internal Medicine Geriatric Medicine
CPT/HCPCS: 71046

== ENCOUNTER → 2024-01-12 | Outpatient (CLI) | payer MEDICARE | END | disposition home or self-care (01) | LOC: LABPAT 10:35 | PROVIDERS: ATTEND Orthopaedic Surgery | DX: Z01.812 Encounter for preprocedural laboratory examination (principal); M48.062 Spinal stenosis, lumbar region with neurogenic claudication; M54.16 Radiculopathy, lumbar region; Z22.322 Carrier or suspected carrier of Methicillin resistant Staphylococcus aureus | CPT/HCPCS: 86850; 86900; 86901; 87070 ==

== ENCOUNTER 2024-01-19 05:38 | Inpatient (IN) | payer MEDICARE ==
[~2024-01-19 05:38] MED LIST: ONDANSETRON 4 MG/2 ML VIAL IVP PRN; TRANEXAMIC 1,000 MG/100ML-NACL 1,000 MG in SALINE 1 100ML.BAG IVPB PRN
[2024-01-19] MEDS ORDERED: LIDOCAINE 1% (10MG/ML) FOR IV START INTRADERMA PRN (05:46)
[2024-01-19] MEDS: IV FLUID CONTINUATION 1,000 ML IV ONE ×2 (06:11)
[2024-01-19] MEDS: LACTATED RINGERS 1,000 ML IV SCH ×2 (06:28→16:59)
--- NOTE | 2024-01-19 06:33 | P.HPOR ---
History of Present Illness H&P Date: 01/12/24 .D:Date: 01/12/24 : 01:58pm .T:Title: PRE-OP H1 [facility] [address] [place] [address] [place] [address]| DO DAILY LINTON, MSN, PROFESSOR OF BIOLOGY-C DEMOGRAPHICS: Age: 73 year Height: 5'6" Weight: 138 lbs BP:/ BMI: 22.27 kg/m2 Occupation: Retired HISTORY: Ms. Stephens presents to the office today, 01/12/24, for pre-operative evaluation preceding her [id number] decompression and fusion. The patient reports experiencing a continued ache-like pain across the low back that intermittently radiates up into the mid back region. She states her low back pain radiates down into the right lower extremity with a shooting, burning quality. She notes her right leg pain is associated with numbness and tingling. She notes progressive bilateral leg weakness. She states anytime she is standing and looks downward she feels off balance. She notes several falls from standing over the last 1 to 2 years. She states her symptoms worsen when standing and walking and at night time. She notes she can only walk approximately 1 block before having to rest due to severe low back and leg pain. She states her symptoms have significantly worsened over the last 1 year. She has trialed all conservative measures listed below with only mild, temporary relief. She is currently taking Aleve for relief of her current symptoms. Otherwise, the patient denies any f/c/sob/cp, perineal numbness or tingling, bowel, or bladder incontinence/retention. Patient is ambulatory independently. The patients past social, medical, family, surgical history, as well as review of systems, have been reviewed. Please refer to the History and Physical form that has been scanned into our electronic medical record system. 16 points review of systems completed and as stated in HPI, all other systems reviewed are negative. PAST TREATMENTS: PAST IMAGING: - Yes TRAUMA RELATED: - No WORK RELATED: - No PT IN LAST 6 MONTHS: - No PHYSICIAN DIRECTED HOME EXERCISE PROGRAM: - Yes; no significant relief ACTIVITY MODIFICATION: - Yes MEDICATIONS: - Aleve ALTERNATIVE INTERVENTIONS (CHIROPRACTIC, ACUPUNCTURE, MASSAGE, RICE): - Yes (home heat/ice therapies & rest); mild, temporary relief BRACING: - No INJECTIONS (AIYANA, TF, RFA): - Yes; several lumbar ESIs with no relief (completed several years ago) MEDICAL HISTORY: Past Medical History: REVIEWED STATED IN CHART Past Surgical History: REVIEWED STATED IN CHART Social History: REVIEWED STATED IN CHART SMOKING: Non-smoker SUBSTANCES: None Family History: REVIEWED STATED IN CHART Current Medications: Rx: Aleve Ref: 0 Instructions: PRN Rx: Melanie Ref: 0 Rx: atorvastatin 10 mg tablet Ref: 0 Instructions: take 1 tablet (10 mg) by oral route once daily Rx: baclofen 5 mg tablet Ref: 0 Instructions: take 1 tablet (5 mg) by oral route 2 times per day as needed Rx: esomeprazole magnesium 40 mg capsule,delayed release Ref: 0 Instructions: take 1 capsule (40 mg) by oral route 2 times per day Rx: Fish OiL Ref: 0 Rx: folic acid 1 mg tablet Ref: 0 Instructions: take 1 tablet (1 mg) by oral route once daily Rx: lisinopriL 20 mg tablet Ref: 0 Instructions: take 1 tablet (20 mg) by oral route once daily Rx: metHOTREXate sodium 2.5 mg tablet Ref: 0 Instructions: take 1 tablet (2.5 mg) by oral route four times weekly Rx: cyclobenzaprine 5 mg tablet Ref: 0 Instructions: take 1 tablet (5 mg) by oral route 3 times per day as needed for muscle spasm Rx: levothyroxine 100 mcg tablet Ref: 0 Instructions: take 1 tablet (100 mcg) by oral route once daily P1 PHYSICAL EXAM: General: AOX3, NAD, Well hydrate, well nourished HEENT: No lumps or masses Extremities: No color changes, no pooling INTEGUMENT: Appearance:Normal color and turgor Surgical Incisions: None Hairy Patches: ABSENT Dorsal Skin Dimples: Normal [employer] spots: ABSENT PALPATION: TTP Midline:NO Paracervical:NO Parathoracic:NO Paralumbar:NO SIJ TESTING: TTP (NONE) POSTURAL BALANCE: Coronal:BALANCED Sagittal:POS Shoulder height: RIGHT - HIGHER Pelvic Girdle: LEVEL ROM AND APPEARANCE: Neck:UNRESTRICTED Lumbar:RESTRICTED Shoulders: Symmetrical Hips: RIGHT LAM - HIGHER Knees: Symmetrical Hands: Symmetrical Feet: Symmetrical - LEFT FOOT DROP PROMINENT SPs VASCULAR STATUS: PALPABLE PULSES B/L UE AND LE 2/4 RAD/ULNAR/DP/PT Edema: NONE NEUROLOGICAL EXAMINATION: Mental Status: Awake, alert, fully oriented with normal attention, concentration, and memory. Fluent appropriate speech. CRANIAL NERVES: I: Olfactory not assessed. II: Visual acuity normal, no visual field deficit noted with confrontation. III, IV: Normal pupillary reflexes & intact extraocular movements without nystagmus. V, : Intact symmetrical facial sensation. VII: Intact symmetrical facial motor movement: Hearing intact. IX, X: Intact gag, swallow, & normal voice. XI: Sternocleidomastoid, trapezius function intact. XII: Tongue midline with normal movements. TENSIONING: L'HERMITTE'S SIGN NEG SPURLUNG'S SIGN NEG CUBITAL COMPRESSION NEG TINELS AT WRIST NEG SLR/CROSSED SLR POS MOTOR EXAM (0-5/5, NT) Muscle appearance:Symmetrical, without signs of atrophy or dystrophy UPPER EXTREMITY RIGHT LEFT Shoulder Abduction 5 5 Biceps 5 5 Triceps 5 5 Wrist Extension 5 5 Hand Intrinsics 5 5 Ecological Economist 5 5 LOWER EXTREMITY RIGHT LEFT Hip Flexion 4 4 Knee Extension 4 4- Knee Flexion 4- 4 Dorsiflexion 4 2 Plantarflexion 4- 4 EHL 4 4 FHL 4 4 REFLEXES (0-4/2, NT): RIGHT LEFT Bicep 2 2 Brachioradialis 2 2 Triceps 2 2 Patellar 1 1 Achilles 1 1 PATHOLOGICAL REFLEXES: RIGHT LEFT HAYES'S ABSENT ABSENT CLONUS ABSENT ABSENT BABINSKI ABSENT ABSENT RECTAL TONE: INTACT SENSATION (0-4, NT): Sensation intact to LT and Pain * C5-T1 distribution BUE * L2-S2 distribution BLE *Exceptions below* DERMATOMAL DEFICIT/RADICULAR PATTERN: L1-S1 b/l LE with L4/5 Left non functional. GAIT AND FUNCTIONAL EVALUATION: AMBULATORY AID NONE ROMBERG'S TEST INTACT HAND AND FINGER DEXTERITY INTACT YES DYSDIADOCHOKINESIA EXAM NEG B/L YES TOE/HEEL WALK INTACT WITH GOOD BALANCE YES SQUAT AND RISE W/O ASSISTANCE TO 60 DEG KNEE FLEXION YES SINGLE LEG STANCE INTACT TRENDELENBURG NEG IMAGING: XRAY No new x-rays taken in office today. Please see previous notes. CT Date: 09/20/2023 Location: [facility] Hospital Region:Lumbar Contrast:N FINDINGS: Images reviewed with the patient. These demonstrate sagittal and coronal deformity due to degenerative lumbar collapse and scoliosis. There is a 27 deg coronal deformity due to differential disc collapse from L1-S1 with vacuum discs at every level. There is height loss and collapse with facet arthrosis due to this that is severe. There is b/l foraminal and central stenosis related to this that is severe as well. Sagittal deformity is due to collpase as well and LL is 3 deg from L1-L5 and 15 deg from L1-S1 with most of the lordosis coming from hyperlordotic segment at L5-S1 which is abnormally fishmouthed and retrolisthesised due to the deformity above. There is decreae in thoracic kpyhosis and trasition of the T/L junction is distrupted due to the overall deformity noted. Thoracic spine is otherwise intact without fracture or issues noted. b/l SIJ sclerosis noted with vacuum in the joint space. Subchondral sclerosis and cyst formation. No fractures or lesions noted. MRI Date: Location: [facility] Hospital Region:Lumbar Contrast:N FINDINGS: IMages revieweed with pt. Similar findings to the CT scan with severe lumbar degenerative scoliosis, spondylosis, retrolisthesis, severe central and b/l foraminal stenosis from L1-S1 due to collapse, ligamental hypertrophy, facet hypertrophy and arthropathy as well as degenerative disc herniations. No fractures noted. No lesions noted. IMPRESSION: It was my pleasure to have seen and examined Jaimie. I reviewed the patient's clinical syndrome, physical findings, and imaging studies during the appointment today. It is my impression that the patient has a diagnosis of. 1. Lumbar scoliosis 2. Right lower extremity radiculopathy 3. Neurogenic claudication 4. Bilateral lower extremity weakness 5. Low back pain PLAN: DISCUSSION: -I have discussed operative versus non-operative treatment options with the patient in detail today. Presently, I have recommended surgical intervention in the form of a [id number] decompression and fusion secondary to her lumbar scoliosis and progressive right lower extremity radiculopathy and neurogenic claudication symptoms. The patient verbally understands all risks, benefits, and alternatives to the procedure. She notes she would like to further discuss this procedure with family at home and will call back at a later time with her final decision. SURGICAL RECOMMENDATION -[id number] DECOMPRESSION AND FUSION WITH STABILIZATION THERAPIES -I have provided the patient with a script for physical therapy today. PT to start 2x per week for weeks. -Cont. with Heat/Ice as warranted -Cont. with supplementation Vit D, Vit C, Ca2+, High protein diet -OK for massage or other alternative treatment modalities as able. If it exacerbates your sx do not continue ACTIVITY -Avoid excessive or heavy BLPPT MEDICATIONS -Take as directed -Cont. home medications as directed by your PCP. Check with your PCP for any medication interactions or issues if needed. Surgical Procedure Risk Review Jaimie Stephens is a 73 year old female presenting for evaluation of sudden onset of severe back pain, leg pain progressive changes in her low back and le gs. It was my pleasure to have seen and examined Ms. Stephens. In our visit today we have had a chance to go over subjective complaints, physical examination findings and treatments, including the natural course history without intervention and various interventional options. The imaging demonstrates severe spondylosis, stenosis from L1-S1 with TL junction failure with spondylosis. . On physical exam, Ms. Stephens demonstrates severe LE weakness, low back pain, LE radiculopathy . I explained to the patient that as her condition progresses it could cause progressive weakness, progressive pain, neurological demise. At this time, based on the patients imaging and physical exam, I recommend surgery in the form or a: [id number] decompression and fusion . I discussed the risk and benefits of this procedure at length with Ms. Stephens. The patient agreed to consider pursuing the procedure mentioned above. Plan: 1. [id number] DECOMPRESSION AND FUSION WITH STABILIZATION 2. Follow up with PCP for surgical clearance 3. Review of surgical risks and benefits as well as an educational packet on the proposed surgical procedure. Risks: All surgical procedures come with inherent risks, including those related to positioning, anesthesia, intraoperative findings, and postoperative complications. It is important to understand that surgery does not come with any guarantee of a successful outcome as complications and adverse events are always possible. The patient was given a handout in office today discussing the surgical procedure and risks associated with the intervention, both of which were discussed with the patient. These risks include but are not limited to the following: ? Experiencing same, different or even worse symptoms in back, neck, arms, or legs compared to before surgery. ? Requiring further surgery or other forms of treatment presently or at some time in the future at same or other levels of the intended spine surgery. ? On an extreme but fortunately relatively rare basis severe complication such as blindness, stroke, heart attack, temporary and/or permanent nerve injury, paralysis, coma, or may occur, sometimes without known explanation. ? Surgical complications may include but are not limited to risk of infection, fluid accumulation in the surgical dissection site, including a seroma or hematoma, that requires additional surgery, wound drainage, bleeding, new numbness or weakness, vision changes/loss, spinal fluid leakage, non-healing and/or infected incision, headaches, difficulty or inability to swallow, hoarseness, hemopneumothorax, pneumothorax, impotence, retrograde ejaculation, vaginal dryness; injury to nerves, spinal cord, blood vessels, lymphatics or other vital organs (i.e., bowel injury, injury to the great vessels); heterotopic bone formation; complications related to the hardware such as screws, rods, cages including misplaced hardware, device failure, instrumentation at the wrong spine level, hardware fracture/breakage, or hardware loosening; vertebral failure of the spinal column above or below the newly placed hardware; retained surgical instrumentations or devices and the need for further surgery. ? Medical risks of the planned spine surgery include but are not limited to generalized Infections to the whole body or local areas outside of the surgical site (sepsis), heart attack, bleeding, anaphylaxis, meningitis, seizure, epilepsy, hearing loss, burn mas, laceration of the head or other areas of the body, bruising, hypersensitivity of the skin, bladder over distension; allergic reaction; shoulder injury related to positioning; fat, blood and air clots to other areas of the body like heart, lungs, brain; failure of internal organs such as lungs, kidneys, liver and excessive bleeding. If blood transfusions are necessary, note that transfusions may cause intolerance reactions such as anaphylaxis or other complex reactions. Despite best efforts, the results of spine surgery might not heal in terms of bone, soft tissues such as skin, fascia, ligaments, and joints. Additionally, in order to achieve best possible results, spine surgery may be carried out beyond the initially planned levels and involve decompression, fusion including insertion of hardware at levels other than the original intended area of surgical interest change some portions of the procedure in order to ensure the best possible outcomes. With spine surgery and spinal fusion, there are different off label uses of instrumentation (devices, implants and hardware) as well as biological substances (bone morphogenic proteins, demineralized bone matrix) as well as using extra bone from allograft sources (i.e. cadaver bone) or autograft (iliac crest bone, ribs, or the spine itself). The patient has been given information about these practices and their inherent risks and benefits. [facility] Physician Assistants are medically trained surgical providers who function in the outpatient, inpatient, and operating room setting under the direct supervision of the attending surgeon.They assist in the operating room with direct supervision of the attending surgeons. The patient has had a chance to review all the listed information, has been given print outs detailing this information, and has had all his/her questions answered to their satisfaction. It was my pleasure to have seen and examined Ms. Stephens. In our visit today we have had a chance to go over my understanding of our patient's current condition, the natural course history without intervention and various interventional options. Questions were invited and answered, and the patient wishes to proceed as outlined above. I have seen and examined the patient for 25 minutes and we have spent more than 50% of the time in repeat and detailed counseling about the patient's condition, its natural course history with out and as much as can be predicted with surgery and re-review of various surgical treatment options. In conclusion,Ms. Stephens and her spouse/partner requested we proceed with the above suggested surgery and are willing to accept risks and limitations of the suggested surgery as nature of the disease process and our best attempts at treatment for the condition. FOLLOW UP: POST-OP PATIENT EDUCATION: Medications Reviewed: YES In our visit today Ms. Stephens and I have had a chance to go over my understanding of the patient's current condition, the natural course history without intervention and various interventional options. Questions were invited and answered, and the patient wishes to proceed as outlined above. I will be sure to keep you updated after Ms. Stephens returns here for further follow-up. Thank you again for your referral. Please do not hesitate to contact me if you have any further questions. Signed and authenticated by: Cordell [facility] [address], [address] [address] . This message is confidential, intended only for the named recipient(s) and may contain information that is privileged or exempt from disclosure under applicab le law. If you are not the intended recipient(s), you are notified that the dissemination, distribution or copying of this information is prohibited. If you received this message in error, please notify the sender then delete this message. # SIGNED BY Cordell Rahman (GOO)01/18/2024 08:57AM Past Medical History Past Medical History: Cancer, GERD/Reflux, Hypertension, Osteoarthritis (OA), Skin Disorder, Thyroid Disorder Additional Past Medical History / Comment(s): SEASONAL ALLERGIES. lower back pain collapsed disc x3, hx cervical cancer. scratch to rt ankle area is a little red and sore. pt has soaked it daily but it has not scabbed over. has been applying neosporin daily. stopped today.pt to let Dr Rahman know today. History of Any Multi-Drug Resistant Organisms: None Reported Date of last positivie culture/infection: 01/12/24 MDRO Source:: nasal Past Surgical History: Section, Hysterectomy Additional Past Surgical History / Comment(s): CATARACTS BILATERAL, cold knife conization Past Anesthesia/Blood Transfusion Reactions: No Reported Reaction Smoking Status: Former smoker - Past Family History Father Family Medical History: Coronary Artery Disease (CAD) Mother Family Medical History: Cancer Additional Family Medical History / Comment(s): lung cancer Brother(s) Family Medical History: CVA/TIA Medications and Allergies Home Medications Medication Instructions Recorded Confirmed Type Fexofenadine/Pseudoephedrine 1 tab PO DAILY PRN 10/29/14 01/19/24 History [Melanie-D 12 Hour Tablet] Levothyroxine Sodium [Synthroid] 100 mcg PO QAM 10/29/14 01/19/24 History Lisinopril/Hydrochlorothiazide 1 tab PO QAM 10/29/14 01/19/24 History [Lisinopril-Hctz 10-12.5 mg Tab] [place]-3 Fatty Acids/Fish Oil [Fish 1 cap PO DAILY 10/29/14 01/19/24 History Oil 1,000 mg Softgel] Naproxen Sodium [Aleve] 220 mg PO BID 10/30/21 01/19/24 History Cholecalciferol [Vitamin D3 (25 50 mcg PO DAILY 01/16/24 01/19/24 History Mcg = 1000 Iu)] Escitalopram [Lexapro] 5 mg PO DAILY 01/16/24 01/19/24 History Esomeprazole Magnesium [NexIUM] 40 mg PO DAILY 01/16/24 01/19/24 History Folic Acid 1 mg PO DAILY 01/16/24 01/19/24 History Ibandronate Sodium [Boniva] 150 mg PO QMONTHLY 01/16/24 01/19/24 History metHOTREXate sodium [Methotrexate] 7.5 mg PO TU 01/16/24 01/19/24 History Allergies Allergy/AdvReac Type Severity Reaction Status Date / Time No Known Allergies Allergy Verified 01/19/24 06:14 Physical Examination Osteopathic Statement: *. No significant issues noted on an osteopathic structural exam other than those noted in the History and Physical/Consult.
[2024-01-19 06:34] LABS: Glucose,Whole Blood 99 mg/dL (70-110)
[2024-01-19] MEDS: MIDAZOLAM 2 MG/2 ML VIAL IV PRN (06:50)
[2024-01-19] MEDS ORDERED: HYDROmorphone 0.5 MG/0.5 ML SYRINGE IVP PRN (07:00)
[2024-01-19] MEDS ORDERED: ONDANSETRON 4 MG/2 ML VIAL IVP PRN ×2 (07:00→14:44)
[2024-01-19] MEDS: VANCOMYCIN 1,000 MG in SODIUM CHLORIDE 0.9% 250 ML IVPB PRN (07:13)
[2024-01-19] MEDS: ACETAMINOPHEN TAB 500 MG TAB PO PRN (07:14)
[2024-01-19] MEDS: GABAPENTIN 300 MG CAP PO PRN (07:14)
[2024-01-19] MEDS: ONDANSETRON 4 MG/2 ML VIAL IVP ONE (07:15)
[2024-01-19] MEDS: DEXAMETHASONE SOD PHOSPHATE 4 MG/ML 1 ML VIAL IV ONE (07:15)
[2024-01-19] MEDS ORDERED: GLYCOPYRROLATE 0.2 MG/ML 2 ML VIAL ONE (07:28)
[2024-01-19] MEDS ORDERED: KETAMINE HCL IN 0.9 % NACL 50 MG/5 ML SYRINGE ONE (07:28)
[2024-01-19] MEDS ORDERED: ALBUMIN HUMAN 5% (25gm) 500 ML VIAL IVPB ONE (07:28)
[2024-01-19] MEDS ORDERED: PHENYLEPHRINE 10 MG/ML VIAL ONE (07:28)
[2024-01-19] MEDS ORDERED: SUCCINYLCHOLINE CHLORIDE 200 MG/10 ML VIAL IV ONE (07:28)
[2024-01-19] MEDS ORDERED: TRANEXAMIC 1,000 MG/100ML-NACL PREMIX BAG ONE (07:28)
[2024-01-19] MEDS ORDERED: SODIUM BICARB 8.4% 50 ML SYR (1 MEQ/ML) ONE (07:28)
[2024-01-19] MEDS ORDERED: PROPOFOL 10 MG/ML 20 ML VIAL IV ONE (07:28)
[2024-01-19] MEDS ORDERED: ROCURONIUM 10 MG/ML (5 ML VIAL) IV ONE (07:28)
[2024-01-19] MEDS ORDERED: HYDROmorphone (PF) 1 MG/ML ONE (07:28)
[2024-01-19] MEDS ORDERED: LIDOCAINE 1% INJ 10MG/ML (20 ML MDV) ONE (07:28)
[2024-01-19] MEDS ORDERED: fentaNYL (PF) 50 MCG/ML 2 ML AMP ONE (07:28)
[2024-01-19] MEDS ORDERED: MIDAZOLAM 2 MG/2 ML VIAL ONE (07:28)
[2024-01-19] MEDS ORDERED: NEOSTIGMINE 1 MG/ML 10 ML VIAL ONE (07:28)
--- NOTE | 2024-01-19 07:36 | XR ---
EXAMINATION TYPE: XR chest 1V confirm line plcmt DATE OF EXAM: 01/19/2024 COMPARISON: NONE CLINICAL INDICATION: Female, 73 years old with history of LINE PLACEMENT; , TECHNIQUE: XR chest 1V confirm line plcmt views of the chest. FINDINGS: The lungs are clear and there is no pneumothorax, pleural effusion, or focal pneumonia. Heart size normal and no overt failure. Osseous structures demonstrate hypertrophic and degenerative changes of the spine. Underlying emphysematous changes. There is a right-sided central line with the tip overlyi ng the right atrium. Lucency in the soft tissue the neck may be related to rotation. Follow-up x-ray recommended. There is a 1.2 cm nodular density in the left upper lobe. IMPRESSION: 1. Right-sided central line seen with the tip overlying the right atrium and no sizable pneumothorax. 2. There is a nodular density in the left upper lobe measuring 1.2 cm. Pulmonary nodule not excluded consider follow-up CT scan. [facility], , 01/19/2024 7:33 AM
[2024-01-19] MEDS: ceFAZolin 3,000 MG in SODIUM CHLORIDE 0.9% IRRIGATIO 3,000 ML IRRIGATION ONE (08:14)
[2024-01-19] MEDS: GENTAMICIN 80 MG in SODIUM CHLORIDE 0.9% IRRIGATIO 3,000 ML IRRIGATION ONE (08:14)
[2024-01-19 08:34] LABS: ABG Base Excess 0.5 mmol/L; ABG Glucose Whole Blood 114 mg/dL (75-99); ABG HCO3 24 mmol/L (21-25); ABG Hematocrit 31 % (34.0-46.0); ABG Ionized Calcium 4.7 mg/dL (4.5-5.3); ABG Lactic Acid Whole Blood 0.6 mmol/L (0.5-1.6); ABG Oxygen Saturation 99.2 % (94-97); ABG PCO2 32 mmHg (35-45); ABG PH 7.47 (7.35-7.45); ABG PO2 387 mmHg (83-108); ABG Potassium Whole Blood 3.5 mmol/L (3.4-4.5); ABG Sodium Whole Blood 135 mmol/L (135-146); ABG TCO2 22 mmol/L (19-24)
[2024-01-19 08:59] LABS: Basophils % (A) 0 %; Eosinophils # (A) 0.1 k/uL (0-0.7); Eosinophils % (A) 1 %; HCT 32.5 % (34.0-46.0); HGB 11.3 gm/dL (11.4-16.0); Lymphocytes # (A) 1.1 k/uL (1.0-4.8); Lymphocytes % (A) 14 %; MCH 33.4 pg (25.0-35.0); MCHC 34.7 g/dL (31.0-37.0); MCV 96.3 fL (80.0-100.0); Mean Platelet Volume 8.4; Monocytes # (A) 0.5 k/uL (0-1.0); Monocytes % (A) 6 %; Neutrophils # (A) 6.1 k/uL (1.3-7.7); Neutrophils % (A) 77 %; Platelet Count 202 k/uL (150-450); RBC 3.38 m/uL (3.80-5.40); RDW 14.5 % (11.5-15.5); WBC 7.9 k/uL (3.8-10.6)
[2024-01-19] MEDS: THROMBIN (BOVINE) 5,000 UNIT VIAL TOPICAL ONE ×2 (09:01)
[2024-01-19] MEDS: LACTATED RINGERS 1,000 ML IV ONE ×2 (12:00→13:12)
--- NOTE | 2024-01-19 13:01 | P.ANPRN ---
Procedure Note - Anesthesia - Invasive Line Right Central Line Time Out Performed: Yes Date of Procedure: 01/19/24 Time of Procedure: 07:11 Location of Patient: PreOp Preparation: Sterile Prep, Sterile Dressing Central Line Location: Internal Jugular Ultrasound Used: No Purpose - Visualization and Identification of Vasculature: No Image Stored and Saved: No Narrative: Invasive line placement per sterile protocol utilized.
--- NOTE | 2024-01-19 13:01 | P.ANPRN ---
Procedure Note - Anesthesia - Invasive Line Left Arterial Line Time Out Performed: Yes Date of Procedure: 01/19/24 Time of Procedure: 06:51 Location of Patient: PreOp Preparation: Sterile Prep, Sterile Dressing Arterial Line Location: Radial Ultrasound Used: No Purpose - Visualization and Identification of Vasculature: No Image Stored and Saved: No Narrative: Invasive line placement per sterile protocol utilized.
[2024-01-19] MEDS: VANCOMYCIN 1,000 MG VIAL MISCELLANE ONE (13:12)
[2024-01-19 13:41] LABS: ABG Base Excess -4.8 mmol/L; ABG Glucose Whole Blood 120 mg/dL (75-99); ABG HCO3 20 mmol/L (21-25); ABG Ionized Calcium 4.2 mg/dL (4.5-5.3); ABG Lactic Acid Whole Blood 0.7 mmol/L (0.5-1.6); ABG Oxygen Saturation 99.2 % (94-97); ABG PCO2 35 mmHg (35-45); ABG PH 7.37 (7.35-7.45); ABG PO2 271 mmHg (83-108); ABG Potassium Whole Blood 3.1 mmol/L (3.4-4.5); ABG Sodium Whole Blood 137 mmol/L (135-146); ABG TCO2 20 mmol/L (19-24); Allen Test Performed? Yes
[2024-01-19 14:04] LABS: ABG Hematocrit 22 % (34.0-46.0)
--- NOTE | 2024-01-19 14:17 | FL ---
EXAMINATION TYPE: FL guidance operating room DATE OF EXAM: 01/19/2024 HISTORY: Fluoroscopy time Total dose area product (DAP) in uGy*m?, mGy*cm? (or similar): 230.716 IMPRESSION: 1. Fluoroscopy time. [facility], , 01/19/2024 2:15 PM
--- NOTE | 2024-01-19 14:17 | XR ---
EXAMINATION TYPE: XR lumbar spine 2 or 3V DATE OF EXAM: 01/19/2024 1:52 PM COMPARISON: None. CLINICAL INDICATION: Female, 73 years old with history of T10/Pelvis Fusion; TECHNIQUE: 16 views are submitted. FINDINGS: Postsurgical changes involving the vertebral column with multiple intraoperative images. IMPRESSION: 1. See above. [facility], , 01/19/2024 2:14 PM
[2024-01-19] MEDS ORDERED: HYDROmorphone 1 MG/ML 1 ML SYRINGE IVP PRN (14:44)
[2024-01-19] MEDS ORDERED: MAGNESIUM HYDROXIDE 2,400 MG/30 ML CUP PO PRN (14:44)
[2024-01-19] MEDS ORDERED: SENNOSIDES-DOCUSATE SODIUM 1 EACH TAB PO PRN (14:44)
--- NOTE | 2024-01-19 14:50 | P.OP ---
Date of Procedure: 01/19/24 Preoperative Diagnosis: 1. 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 NEUROGENIC CLAUDICATION 3. LUMBAR STENOSIS, SEVERE L1-S1 4. LOW BACK PAIN 5. LE WEAKNESS 6. LE RADICULOPATHY 7. COMPLEX MEDICAL PATIENT Postoperative Diagnosis: 1. 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 NEUROGENIC CLAUDICATION 3. LUMBAR STENOSIS, SEVERE L1-S1 4. LOW BACK PAIN 5. LE WEAKNESS 6. LE RADICULOPATHY 7. COMPLEX MEDICAL PATIENT Procedure(s) Performed: 1. L1-2 INTRADISCAL OSTEOTOMY, 3 COLUMN FOR DEFORMITY CORRECTION 2. L2-3 INTRADISCAL OSTEOTOMY, 3 COLUMN FOR DEFORMITY CORRECTION 3. L3-4 INTRADISCAL OSTEOTOMY, 3 COLUMN FOR DEFORMITY CORRECTION 4. L4-5 INTRADISCAL OSTEOTOMY, 3 COLUMN FOR DEFORMITY CORRECTION 5. L5-S1 INTRADISCAL OSTEOTOMY, 3 COLUMN FOR DEFORMITY CORRECTION 6. L1-2 POSTEROLATERAL AND INTERBODY FUSION 7. L2-3 POSTEROLATERAL AND INTERBODY FUSION 8. L3-4 POSTEROLATERAL AND INTERBODY FUSION 9. L4-5 POSTEROLATERAL AND INTERBODY FUSION 10. L5-S1 POSTEROLATERAL AND INTERBODY FUSION 11. T10-L1 POSTEROLATERAL INSTRUMENTED FUSION (59) 12. G13-[id number] SEGMENTAL INSTRUMENTATION (10 SEG) 13. BILATERAL OPEN SACROILLIAC JOINT FUSION FOR LONG CONSTRUCT STABILITY AND SACROPELVIC STABILITY 14. ATTACHMENT OF THE CONSTRUCT TO BONY PELVIS NOT SACRUM 15. L5-S1 BILATERAL LAMINECTOMY, COMPLETE FACETECTOMY AND FORAMINOTOMY FOR NEURAL DECOMPRESSION, DEFORMITY CORRECTION AND CAGE PLACEMENT 16. L4-5 BILATERAL LAMINECTOMY, COMPLETE FACETECTOMY AND FORAMINOTOMY FOR NEURAL DECOMPRESSION, DEFORMITY CORRECTION AND CAGE PLACEMENT 17. L3-4 BILATERAL LAMINECTOMY, COMPLETE FACETECTOMY AND FORAMINOTOMY FOR NEURAL DECOMPRESSION, DEFORMITY CORRECTION AND CAGE PLACEMENT 18. L2-3 BILATERAL LAMINECTOMY, COMPLETE FACETECTOMY AND FORAMINOTOMY FOR NEURAL DECOMPRESSION, DEFORMITY CORRECTION AND CAGE PLACEMENT 19. L1-2 BILATERAL LAMINECTOMY, COMPLETE FACETECTOMY AND FORAMINOTOMY FOR NEURAL DECOMPRESSION, DEFORMITY CORRECTION AND CAGE PLACEMENT 20. DURAL EROSION REPAIR WITH FAT PATCH GRAFT AND LAMINECTOMY L4-5 REGION LEFT 21. L1-2, L2-3, L3-4, L4-5, L5-S1 INSERTION OF BIOMECHANICAL DEVICES, CAGES, x5 22. USE OF [place] NAVIGATION FOR SCREW PLACEMENT USE OF FOR[facility]LY [facility], [facility]–1983 ALL SCREWS TESTING >15mA MOD22: THIS CASE TOOK 75% LONGER THAN EXPECTED DUE TO EXTENT OF LUMBAR DISEASE; HIGH TECHNICALITY OF THE CASE; PATIENT COMORBID CONDITIONS. Implants: ELLIOT EVEREST RODS AND SCREWS SI BONE GRANIT PELVIC SCREWS SI BONE TORQUE SI SCREWS X2 AMPLIFY GEN 1 CAGE L5-S1 12/14MM GLOBUS SABLE CAGES X3 15 DEG 7-14MM 10 WIDE GLOBUS INTRALIFT CAGE 4 DEG 7-12 8 WIDE CONTOUR, ARTHROCELL, ALLOCELL AF AUTOGRAFT DISC SPACE MAGNATOS, DBM, AUTOGRAFT, ARTHROCELL, ALLOCELL AF PL GUTTERS AND SI JOINTS BL Anesthesia: GETA Surgeon: Cordell Rahman Water Pump Installer #1: Sonia Erazo (WAS PRESENT AND ASSISTED WITH ALL ASPECTS OF THE CASE FROM POSITION TO SCREW PLACEMENT) Water Pump Installer #2: Ac Vásquez (WAS PRESENT AND ASSISTED WITH ALL ASPECTS OF THE CASE FROM SCREW PLACEMENT TO DRESSING PLACEMENT) Estimated Blood Loss (ml): 900 IV fluids (ml): 2,500 Urine output (ml): 870 Pathology: none sent Condition: stable Disposition: PACU Indications for Procedure: Jaimie Stephens is a 73 year old female presenting for evaluation of sudden onset of severe back pain, leg pain progressive changes in her low back and legs. It was my pleasure to have seen and examined Ms. Stephens. In our visit today we have had a chance to go over subjective complaints, physical examination findings and treatments, including the natural course history without intervention and various interventional options. The imaging demonstrates severe spondylosis, stenosis from L1-S1 with TL junction failure with spondylosis. . On physical exam, Ms. Stephens demonstrates severe LE weakness, low back pain, LE radiculopathy . I explained to the patient that as her condition progresses it could cause progressive weakness, progressive pain, neurological demise. At this time, based on the patients imaging and physical exam, I recommend surgery in the form or a: [id number] decompression and fusion . I discussed the risk and benefits of this procedure at length with Ms. Stephens. The patient agreed to consider pursuing the procedure mentioned above. Plan: 1. [id number] DECOMPRESSION AND FUSION WITH STABILIZATION Description of Procedure: [id number] Decompression and fusion OTIS The patient was seen and examined in the preoperative area. All preoperative protocols were followed. Informed consent was obtained, risks and benefits of the procedure were discussed at length. Risks including bleeding infection damage to the surrounding tissue and risk of reoperation were discussed with the patient. Risk of anesthesia up to and including was discussed with the patient. These are outlined in the risk review. They were willing to accept these risks and all the risks of surgery. The patient was given a weight-based dose of antibiotics in the form of 3 g Ancef. The patient was seen and evaluated by the anesthesia team who deemed them fit for surgery. The site was marked, the patient was willing to proceed with the procedure. The patient was transferred to the operative suite by the Department of anesthesia. They were then drifted off to sleep by the department anesthesia and GETA was performed. The patient tolerated this well. Yee catheter was placed by nursing staff, a-traumatically. Once confirmation of lines and ventilation the patient was transferred to a prone Trios spine table very carefully. The head was secured and stable. X Ray confirmed alignment. All bony prominences including wrists, elbows, axilla, chest, hips, and thighs, and feet were padded very well. Special attention was paid to the genitalia, and these were padded accordingly. SCDs were placed on bilateral lower extremities and were connected. Arms were well padded and placed at 90/90 up and out and well padded. Safety strap and tape placed on the patient. Once in position, again we confirmed good ventilation capabilities and that lines were running appropriately. The patients lumbosacral pelvic was then exposed. Hair was removed for incision. 1010s were placed outlining the incision site. Standard alcohol was used to clean the incision site and allowed to dry. C-arm was used to bio-noah the patient and confirm level for incision which was marked with a skin marker. Operative briefing was performed with all teams and everyone in agreement to proceed. The patient was then prepped and draped in a normal sterile fashion. Timeout was then performed, and all parties agreed with the procedure to be performed. Midline skin incision was then made over the previously bookmarked area and dissection taken down to the lumbosacral fascia which was identified and cleaned with a james. Once midline was identified, fasciotomy was made over the SP of [id number]. Subperiosteal dissection was then taken down over the lamina and facet joints and TPs were exposed and trough made posterolateral. TPs were then decorticated L1-S1 and sacral ala with a high speed rick for lateral fusion. Dissection was taken out over the sacrum to the pelvis. SI joint identified and modified Castañeda starting point for pelvic screws identified as well. Retractors placed. Wound was irrigated and lateral image with penfield 4 placed at the pars of L4 confirmed levels for operation. SP clamp was then placed for the [employer] navigation tracker and secured at L2 for the first set of screws. The wound was then filled with NSS and Z-drape. A 3D Ziehm spin was then obtained and registered. Once confirmation of accuracy screws were then placed from T10-L2 using navigation. Navigated high speed rick was used to make a company pilot hole followed by a navigated awl-tap passed through the pedicle into the body. A ball tip probe then confirmed within the pedicle. Screws then measured and placed using a navigated screwdriver. After screws were placed from T10-L2 the tracker was replaced at S1 and a second 3D Ziehm spin was then obtained and registered. Once confirmation of accuracy screws were then placed from L3-Pelvis using navigation. AP image confirmed safe placement of screws. Screws were placed similarly as described above. For pelvic screws, starting point was selected with a navigated rick and starting point made. Then a navigated awl was passed through the corridor above the sciatic notch within bone. Virtual screw was dropped and a feeler was then used to confirm within bone. Then a navigated cattle driver was used to place screws in the pelvis b/l. This was then repeated for b/l SI screw placement for two ponits of fixation across the SIJ for fusion and stabilization. Screws were confirmed to be safe, stabilizing and fusing the SIJ on AP/LAT/INLET/OUTLET films. We then irrigated the wound and tested screws. All screws tested > 15 mA. We then proceeded to decompression and interbody placement. Starting at L5-S1, bilateral laminectomy, complete facetectomy and foraminotomies were performed using high speed bur, Kerrison rongeur. There was exuberant bone formation, osteophytes and scar tissue surrounding these joints as well as the dura. Once exposed the neural elements were protected and an intradiscal osteotomy, 3 column, was performed for deformity correction at L5- S1. Osteotome was used to make osteotomy in L5 and S1 and for complete disc removal. This was passed into the anterior 1/3 of L5. This allowed for loosening of this level and correction. Down biting curette was used to release the disc annulus and PLL across completely. This allowed for disc removal and ca rtilage removal followed by pituitary. Cage was then selected based on shaving and trials. Bleeding endplates were encountered and cartilage removed. Contour, Autograft, allograft were then placed anterior to the cage. The cage was then impacted into place under lateral imaging while protecting neural elements. The cage was then expanded into position and showed good lift and correction. Rest oration of lordosis and height achieved. Meticulous hemostasis then performed. Cage was backfilled with Arthrocell, Allocell and DBM. Wound bed area irrigated. We then proceeded to L4-5. At L4-5, bilateral laminectomy, complete facetectomy and foraminotomy were performed as described above. Again, exuberant scar tissue and bone formation was encountered and at this level. There was also a large disc osteophyte complex that was identified once disc space was found. There was dural erosion at the left side of the L4-5 region due to the severe coronal deformity in this area. This was identified and dural repair was performed with 6-0 prolene suture followed by a fat patch graft. This was harvested from the subq tissue and cleaned and then sutured over the dural erosion for a patch. Valsalva to 40 mmHg was done and there was no further leak. We then proceeded. The dura was carefully dissected off this anteriorly and b/l. Once encountered, the disc space was then accessed in a similar fashion and neural elements protected. Screw to screw disctractor was used to correct coronal deformity slowly and carefully without IONM changes. Once exposed the neural elements were protected and an intradiscal osteotomy, 3 column, was performed for deformity correction at L4-5. Osteotome was used to make osteotomy in L4 and L5 and for complete disc removal. This was passed into the anterior 1/3 of L4. This allowed for loosening of this level and correction. Down biting curette was used to release the disc annulus and PLL across completely. This allowed for disc removal and cartilage removal followed by pituitary. Cage was then selected based on shaving and trials. Bleeding endplates were encountered and cartilage removed. Contour, Autograft, allograft were then placed anterior to the cage. The cage was then impacted into place under lateral imaging while protecting neural elements. The cage was then expanded into position and showed good lift and correction. Zoroastrianism of lordosis and height achieved. Meticulous hemostasis then performed. Cage was backfilled with Arthrocell, Allocell and DBM. Wound bed area irrigated. We then proceeded to L3-4. At L3-4 again bilateral laminectomy, complete facetectomy and foraminotomy were performed. Screw to screw disctractor was again used to correct coronal deformity slowly and carefully without IONM changes. Once exposed the neural elements were protected and an intradiscal osteotomy, 3 column, was performed for deformity correction at L3-4. Osteotome was used to make osteotomy in L3 and L4 and for complete disc removal. This was passed into the anterior 1/3 of L3. This allowed for loosening of this level and correction. Down biting curette was used to release the disc annulus and PLL across completely. This allowed for disc removal and cartilage removal followed by pituitary. Cage was then selected based on shaving and trials. Bleeding endplates were encountered and cartilage removed. Autograft, allograft were then placed anterior to the cage. The cage was then impacted into place under lateral imaging while protecting neural elements. The cage was then expanded into position and showed good lift and correction. Zoroastrianism of lordosis and height achieved. Meticulous hemostasis then performed. Cage was backfilled with Arthrocell, Allocell and DBM. Wound bed area irrigated. We then proceeded to L2-3 level. At L2-3 again bilateral laminectomy, complete facetectomy and foraminotomy were performed. Neural elements were mobilized and then protected, Screw to screw disctractor was used to correct coronal deformity slowly and carefully without IONM changes. Once exposed the neural elements were protected and an intradiscal osteotomy, 3 column, was performed for deformity correction at L2-3 . Osteotome was used to make osteotomy in L2 and L3 and for complete disc removal. This was passed into the anterior 1/3 of L2. This allowed for loosening of this level and correction. Down biting curette was used to release the disc annulus and PLL across completely. This allowed for disc removal and cartilage removal followed by pituitary. Cage was then selected based on shaving and trials. Bleeding endplates were encountered and cartilage removed. Autograft, allograft were then placed anterior to the cage. The cage was then impacted into place under lateral imaging while protecting neural elements. The cage was then expanded into position and showed good lift and correction. Zoroastrianism of lordosis and height achieved. Meticulous hemostasis then performed. Cage was b ackfilled with Arthrocell, Allocell and DBM. Wound bed area irrigated. We then proceeded to L1-2. At L1-2 again bilateral laminectomy, complete facetectomy and foraminotomy were performed. Neural elements were mobilized and then protected. Once exposed the neural elements were protected and an intradiscal osteotomy, 3 column, was performed for deformity correction at L1-2 . Osteotome was used to make osteotomy in L1 and L2 and for complete disc removal. This was passed into the anterior 1/3 of L1. This allowed for loosening of this level and correction. Down biting curette was used to release the disc annulus and PLL across completely. This allowed for disc removal and cartilage removal followed by pituitary. Cage was then selected based on shaving and trials. Bleeding endplates were encountered and cartilage removed. Autograft, allograft were then placed anterior to the cage. The cage was then impacted into place under lateral imaging while protecting neural elements. The cage was then expanded into position and showed good lift and correction. Zoroastrianism of lordosis and height achieved. Meticulous hemostasis then performed. Cage was backfilled with Arthrocell, Allocell and DBM. Wound bed area irrigated. Meticulous hemostasis was performed and we irrigated the wound again. AP imaging confirmed good placement of all cages and good reduction and coronal balance restored. Screws all in a good position. Attention was then drawn to gavin placement and further reduction. Rods were selected, measured, cut and bent to appropriate lordosis. They were then secured into pelvic screws b/l. Sequential reduction then done into each screw and set screw placed. Set screws were then final tightened and lateral image showed good lordosis reduction with increase around 15-20 deg from starting. Once rods were secured, cross links were selected and placed and final tightened. The wound was then irrigated with 3L Ancef irrigation, 3L gentamicin irrigation 2L Irricept and 1 L betadine followed by 3L NSS. Tisseal was then plaed over the dura followed by Surgicel was then placed over this followed by another round of tisseal and surgicel. We then did another valsalva to 40 mmHg and there was no further leaks. Then, in the posterolateral gutter was placed, MagnatOs, Autograft and allograft, DBM, Arthrocell, Allocell. This was impacted into position and surgical placed over it. We also did this in the b/l SI joints after decortication with high speed rick. 2g Vanco powder was then placed deep in the wound. A deep, subfascial drains were placed and secured with a stitch. We then proceeded with layered closure. #1 PDS placed in the deep fascia and muscle layers. 0 Vicryl placed in the deep subq, 2-0 placed in the superficial subq and raphael placed in the skin. The wound edges approximated very well. The wound was then cleaned with ETOH and dressed with adaptic, 4x4, abd and tape. Drain sponge placed after Drains sewed into position. Tegaderm placed over this. IONM confirmed no changes. The patient was then transferred off the [facility] spine table to their hospital bed a-traumatically. Drains continued to hold suction. The patient was then extubated and transferred to the ICU in stable condition having tolerated the procedure with no complications.
[2024-01-19] MEDS ORDERED: HYDROmorphone 2 MG/ML 1 ML SYRINGE IVP PRN (16:18)
[2024-01-19 16:24] LABS: Glucose,Whole Blood 148 mg/dL (70-110)
--- NOTE | 2024-01-19 16:37 | P.CNPUL ---
History of Present Illness Consult date: 01/19/24 Chief complaint: T10-S1 decompression and fusion History of present illness: 73-year-old female patient, post extensive spine surgery for lumbar degenerative scoliosis and neurogenic claudication along with lumbar stenosis that was severe at the level of L1 S1 along with chronic back pain and lower extremity weakness and radiculopathy. The patient underwent osteotomy with multilevel deformity correction, multilevel fusion/laminectomy T10-S1. The patient encountered dural erosion that was repaired with a fat patch graft. Intraoperatively, the patient lost approximately 900 cc of blood and the patient is currently completing her second unit of packed RBC. The patient's hemoglobin and follow-up is pending. Noted the patient was weaned off the mechanical ventilator and the patient was extubated in the operating room and currently she is laying down flat on 2 L of oxygen by nasal cannula with pulse ox of 99%. She is a bit lethargic and sleepy. Hemodynamically stable on no pressors. She is going to be placed on lactated Ringer at rate of 100 cc an hour. She is on IV cefazolin. No other significant issues for now. Following commands. No extreme questions. Moving all 4 extremities. Adequate alyson assessment of the lower extremities cannot be done. Adequate pulses lower extremities bilaterally. Review of Systems ROS unobtainable: due to mental status Past Medical History Past Medical History: Cancer, GERD/Reflux, Hypertension, Osteoarthritis (OA), Skin Disorder, Thyroid Disorder Additional Past Medical History / Comment(s): SEASONAL ALLERGIES. lower back pain collapsed disc x3, hx cervical cancer. scratch to rt ankle area is a little red and sore. pt has soaked it daily but it has not scabbed over. has be en applying neosporin daily. stopped today.pt to let Dr Rahman know today. History of Any Multi-Drug Resistant Organisms: None Reported Date of last positivie culture/infection: 01/12/24 MDRO Source:: nasal Past Surgical History: Section, Hysterectomy Additional Past Surgical History / Comment(s): CATARACTS BILATERAL, cold knife conization Past Anesthesia/Blood Transfusion Reactions: No Reported Reaction Smoking Status: Former smoker - Past Family History Father Family Medical History: Coronary Artery Disease (CAD) Mother Family Medical History: Cancer Additional Family Medical History / Comment(s): lung cancer Brother(s) Family Medical History: CVA/TIA Medications and Allergies Home Medications Medication Instructions Recorded Confirmed Type Fexofenadine/Pseudoephedrine 1 tab PO DAILY PRN 10/29/14 01/19/24 History [Melanie-D 12 Hour Tablet] Levothyroxine Sodium [Synthroid] 100 mcg PO QAM 10/29/14 01/19/24 History Lisinopril/Hydrochlorothiazide 1 tab PO QAM 10/29/14 01/19/24 History [Lisinopril-Hctz 10-12.5 mg Tab] Antelope-3 Fatty Acids/Fish Oil [Fish 1 cap PO DAILY 10/29/14 01/19/24 History Oil 1,000 mg Softgel] Naproxen Sodium [Aleve] 220 mg PO BID 10/30/21 01/19/24 History Cholecalciferol [Vitamin D3 (25 50 mcg PO DAILY 01/16/24 01/19/24 History Mcg = 1000 Iu)] Escitalopram [Lexapro] 5 mg PO DAILY 01/16/24 01/19/24 History Esomeprazole Magnesium [NexIUM] 40 mg PO DAILY 01/16/24 01/19/24 History Folic Acid 1 mg PO DAILY 01/16/24 01/19/24 History Ibandronate Sodium [Boniva] 150 mg PO QMONTHLY 01/16/24 01/19/24 History metHOTREXate sodium [Methotrexate] 7.5 mg PO TU 01/16/24 01/19/24 History Allergies Allergy/AdvReac Type Severity Reaction Status Date / Time No Known Allergies Allergy Verified 01/19/24 06:14 Physical Exam Vitals: Vital Signs Temp Pulse Resp BP Pulse Ox 01/19/24 15:43 60 14 102/56 98 01/19/24 15:28 57 L 14 101/53 100 01/19/24 15:13 56 L 14 95/52 100 01/19/24 14:58 57 L 14 101/50 100 01/19/24 14:43 97.3 F L 74 14 118/51 100 01/19/24 07:20 66 16 202/81 100 01/19/24 06:14 97.8 F 55 L 16 206/84 100 Intake and Output 01/19/24 01/19/24 01/19/24 06:59 14:59 22:59 Intake Total 600 2462 0 Output Total 1770 Balance 600 692 0 Intake: IV 600 2052 Blood Product 310 0 Rc As-1 Unit 310 [id number] Rc As-1 Unit 0 [id number] Other 100 Rc As-1 Unit 100 [id number] Output: Urine 870 Estimated Blood Loss 900 Other: Weight 60.3 kg The patient appeared well nourished and normally developed. Vital signs as documented. Head exam is unremarkable. No scleral icterus or corneal arcus noted. Neck is without jugular venous distension, thyromegaly, or carotid bruits. Carotid upstrokes are brisk bilaterally. Right IJ tripple lumen Lungs are clear to auscultation and percussion. Cardiac exam reveals the PMI to be normally sized and situated. Rhythm is regular. First and second heart sounds normal. No murmurs, rubs or gallops. Abdominal exam reveals normal bowel sounds, no masses, no organomegaly and no aortic enlargement. Extremities are nonedematous and both femoral and pedal pulses are normal. Examination of the skin revealed no evidence of significant rashes, suspicious appearing nevi or other concerning lesions. Hemovac in the back Neurologically, the patient is awake and alert and the patient does not have any focal neurological deficit. Cranial nerves are essentially intact. The patient is currently on 2 L of oxygen by nasal cannula. Results - Laboratory Findings CBC and BMP: 01/19/24 08:30 ABG ABG pH 7.37 (7.35-7.45) 01/19/24 13:30 ABG pCO2 35 mmHg (35-45) 01/19/24 13:30 ABG pO2 271 mmHg (83-108) H 01/19/24 13:30 ABG O2 Saturation 99.2 % (94-97) H 01/19/24 13:30 Abnormal lab findings: Abnormal Labs 01/12/24 01/19/24 01/19/24 10:46 08:30 08:40 RBC 3.38 L Hgb 11.3 L Hct 32.5 L ABG pH 7.47 H ABG pCO2 32 L ABG pO2 387 H ABG HCO3 ABG O2 Saturation 99.2 H ABG Hematocrit 31 L ABG Potassium ABG Ionized Calcium ABG Glucose 114 H Hemoglobin 10.2 L Arterial Blood Potassium Arterial Blood Glucose 114 H Crossmatch See Detail 01/19/24 13:30 RBC Hgb Hct ABG pH ABG pCO2 ABG pO2 271 H ABG HCO3 20 L ABG O2 Saturation 99.2 H ABG Hematocrit 22 L ABG Potassium 3.1 L ABG Ionized Calcium 4.2 L ABG Glucose 120 H Hemoglobin 7.1 L Arterial Blood Potassium 3.1 L Arterial Blood Glucose 120 H Crossmatch Assessment and Plan Plan: T10-S1, and the multilevel decompression and fusion , post op day #0. Surgery was complicated by blood loss and dural tear and the patient received a total of 2 units of packed RBC and the patient also received a patch graft to the dural tear. Currently hemodynamically stable. Extubated on 2 L of oxygen by nasal cannula Chronic lower back pain, neurologic claudication Hypertension Degenerative arthritis Hypothyroidism Cervical cancer Plan Lactated Ringer at rate of 100 cc an hour Titrate oxygen flow to maintain saturation above 90%, currently on 2 L Dilaudid for pain control in combination with Flexeril IV cefazolin Monitor the output from the Hemovac Frequent neurologic evaluation Will continue to follow
[2024-01-19] MEDS: GABAPENTIN 300 MG CAP PO SCH (16:59)
[2024-01-19 18:31] LABS: Anisocytosis Slight; Basophils % (A) 0 %; Eosinophils % (A) 0 %; HCT 34.8 % (34.0-46.0); HGB 11.7 gm/dL (11.4-16.0); Lymphocytes # (A) 0.4 k/uL (1.0-4.8); Lymphocytes % (A) 3 %; MCH 31.8 pg (25.0-35.0); MCHC 33.6 g/dL (31.0-37.0); MCV 94.5 fL (80.0-100.0); Mean Platelet Volume 8.8; Monocytes # (A) 0.8 k/uL (0-1.0); Monocytes % (A) 5 %; Neutrophils # (A) 15.7 k/uL (1.3-7.7); Neutrophils % (A) 92 %; Platelet Count 137 k/uL (150-450); RBC 3.68 m/uL (3.80-5.40); RDW 16.6 % (11.5-15.5); WBC 16.9 k/uL (3.8-10.6)
[2024-01-19 18:47] LABS: ALT 26 U/L (4-34); AST 52 U/L (14-36); African American GFR (CKD) >90 (>60 ml/min/1.73 sqM); Albumin 3.1 g/dL (3.5-5.0); Alkaline Phosphatase 48 U/L (38-126); Anion Gap 3 mmol/L; Blood Urea Nitrogen 15 mg/dL (7-17); Calcium 7.8 mg/dL (8.4-10.2); Carbon Dioxide 24 mmol/L (22-30); Chloride 107 mmol/L (98-107); Glucose 140 mg/dL (74-99); Non-African American GFR(CKD) 88 (>60 ml/min/1.73 sqM); Potassium 3.8 mmol/L (3.5-5.1); Sodium 134 mmol/L (137-145); Total Bilirubin 0.7 mg/dL (0.2-1.3); Total Protein 5.1 g/dL (6.3-8.2)
[2024-01-19] MEDS ORDERED: Potassium Replacement Protocol 1 EACH MISC MISCELLANE PRN (19:10)
[2024-01-19] MEDS: ACETAMINOPHEN TAB 325 MG TAB PO SCH (19:12)
[2024-01-19] MEDS: HYDROmorphone 0.5 MG/0.5 ML SYRINGE IVP PRN (19:16)
--- NOTE | 2024-01-19 20:19 | CT ---
EXAMINATION TYPE: CT thor lumbar spine wo con DATE OF EXAM: 01/19/2024 6:09 PM COMPARISON: None. CLINICAL INDICATION: Female, 73 years old with history of s/p [id number] decompression fusion, post o p spinal fusion, Lung cancer screening, History of tobacco use. TECHNIQUE: Contrast used: mL of , (none if empty) Oral contrast used: (none if empty) FINDINGS: Postsurgical changes are present T10-S1. Postlaminectomy changes are present. No obvious spinal canal stenosis. Disc spacers are placed in the upper lumbar spine region. Portions of the lungs visualized are clear. Vascular calcifications within the aorta. Abdominal and u pper pelvic structures appear unremarkable IMPRESSION: 1. POSTSURGICAL VERTEBRAL FIXATION CHANGES T10-S1 [facility], , 01/19/2024 8:16 PM
[2024-01-19] MEDS: POTASSIUM CHLORIDE ER 20 MEQ TAB.ER PO SCH (21:23)
[2024-01-19] MEDS: CYCLOBENZAPRINE 5 MG TAB PO PRN (22:42)
[2024-01-20] MEDS: HYDROcodone/APAP 10-325MG 1 EACH TAB PO PRN (04:00)
[2024-01-20 05:09] LABS: Glucose,Whole Blood 127 mg/dL (70-110)
[2024-01-20 05:17] LABS: Anisocytosis Slight; Basophils % (A) 0 %; Eosinophils % (A) 0 %; HCT 31.1 % (34.0-46.0); HGB 10.6 gm/dL (11.4-16.0); Lymphocytes # (A) 0.7 k/uL (1.0-4.8); Lymphocytes % (A) 4 %; MCH 31.5 pg (25.0-35.0); MCHC 34.2 g/dL (31.0-37.0); MCV 92.2 fL (80.0-100.0); Mean Platelet Volume 10.5; Monocytes # (A) 0.9 k/uL (0-1.0); Monocytes % (A) 6 %; Neutrophils # (A) 15.3 k/uL (1.3-7.7); Neutrophils % (A) 90 %; Platelet Count 117 k/uL (150-450); RBC 3.37 m/uL (3.80-5.40); RDW 17.5 % (11.5-15.5)
[2024-01-20 05:27] LABS: African American GFR (CKD) >90 (>60 ml/min/1.73 sqM); Anion Gap 1 mmol/L; Blood Urea Nitrogen 18 mg/dL (7-17); Calcium 7.6 mg/dL (8.4-10.2); Carbon Dioxide 25 mmol/L (22-30); Chloride 106 mmol/L (98-107); Glucose 112 mg/dL (74-99); Non-African American GFR(CKD) 89 (>60 ml/min/1.73 sqM); Potassium 3.6 mmol/L (3.5-5.1); Sodium 132 mmol/L (137-145)
[2024-01-20] MEDS ORDERED: Potassium Replacement Protocol 1 EACH MISC MISCELLANE PRN (05:35)
[2024-01-20] MEDS: POTASSIUM CHLORIDE ER 20 MEQ TAB.ER PO SCH (06:09)
[2024-01-20] MEDS: HYDROcodone/APAP 5-325MG 1 EACH TAB PO PRN (10:33)
--- NOTE | 2024-01-20 13:58 | P.PN ---
Subjective Progress Note Date: 01/20/24 Principal diagnosis: 1. 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 NEUROGENIC CLAUDICATION 3. LUMBAR STENOSIS, SEVERE L1-S1 4. LOW BACK PAIN 5. LE WEAKNESS 6. LE RADICULOPATHY Patient was seen at bedside this afternoon lying in the semirecumbent position in ICU. Family was present during encounter. Nurse mentions patient did sit up just within the past couple hours with therapy and did get a little bit lightheaded and pressures dropped when she got up. Patient says overall she is feeling pretty well since surgery yesterday. Oral medication has been helping control pain somewhat. She says she is using incentive spirometer every hour a nd trying to perform gentle range of motion exercises while resting in bed. Patient denies any other significant issues at this time. Objective - Vital Signs Vital signs: Vital Signs Temp 98.4 F 01/20/24 08:00 Pulse 70 01/20/24 12:00 Resp 12 01/20/24 12:00 BP 103/52 01/20/24 12:00 Pulse Ox 91 L 01/20/24 12:00 FiO2 Intake & Output 01/19/24 01/20/24 01/20/24 18:59 06:59 18:59 Intake Total 2812 1200 820 Output Total 1840 410 90 Balance 972 790 730 Weight 64.8 kg Intake: IV 2402 1200 100 Lactated Ringers 1,000 ml 200 1150 100 @ 100 mls/hr IV .Q10H [facility] Rx#:[id number] ceFAZolin 2 gm In Sodium 50 50 Chloride 0.9% 50 ml @ 100 mls/hr IVPB ONCE PRN Rx# :[id number] Oral 720 Blood Product 310 Rc As-1 Unit 310 [id number] Rc As-1 Unit 0 [id number] Other 100 Rc As-1 Unit 100 [id number] Output: Drainage 0 90 Back 0 90 Urine 940 320 90 Estimated Blood Loss 900 Other: Voiding Method Indwelling Catheter Indwelling Catheter Indwelling Catheter ABP, PAP, CO, CI - Last Documented Arterial Blood Pressure 133/41 - Exam Inspection: Dressing is present over thoracolumbar spine and appears to be clean , dry, intact at this time. Moderate serosanguineous output in drain overnight. Maintain dressing and drain full suction at this time. Sensation: Equal, symmetric, bilat intact throughout extremities on exam. Palpation: Fair amount of tenderness to palpation diffusely throughout the spine at midline near incision. NTTP throughout rest of exam Range of motion: Patient does have limited range of motion in bilateral lower extremities on exam secondary to recent surgery and referred stiffness and pain to the low back. Motor: 5/5 in all major motor groups in bilateral upper extremities. 4/5 in bilateral hips in flexion. 4/5 in bilateral knee extension and flexion. 4-/5 in plantarflexion in the right lower extremity. 4/5 in plantarflexion of left lower extremity. 3/5 in left ankle dorsi flexion. 4/5 in right ankle dorsiflexion. EHL and FHL 4/5 bilaterally Neurovascular: Radial pulse intact bilaterally. DP pulses palpable bilaterally. Cap refill under 3 seconds in digits of upper extremities. Special test: Negative Homans bilaterally. Negative clonus bilaterally. Negative Nelda bilaterally. - Labs CBC & Chem 7: 01/20/24 05:08 01/20/24 05:08 Labs: Abnormal Lab Results - Last 24 Hours (Table) 01/12/24 01/19/24 01/19/24 Range/Units 10:46 13:30 16:22 WBC (3.8-10.6) k/uL RBC (3.80-5.40) m/uL Hgb (11.4-16.0) gm/dL Hct (34.0-46.0) % RDW (11.5-15.5) % Plt Count (150-450) k/uL Neutrophils # (1.3-7.7) k/uL Lymphocytes # (1.0-4.8) k/uL ABG pO2 271 H (83-108) mmHg ABG HCO3 20 L (21-25) mmol/L ABG O2 Saturation 99.2 H (94-97) % ABG Hematocrit 22 L (34.0-46.0) % ABG Potassium 3.1 L (3.4-4.5) mmol/L ABG Ionized Calcium 4.2 L (4.5-5.3) mg/dL ABG Glucose 120 H (75-99) mg/dL Hemoglobin 7.1 L (11.4-16.0) gm/dL Sodium (137-145) mmol/L BUN (7-17) mg/dL Glucose (74-99) mg/dL POC Glucose (mg/dL) 148 H (70-110) mg/dL Calcium (8.4-10.2) mg/dL AST (14-36) U/L Total Protein (6.3-8.2) g/dL Albumin (3.5-5.0) g/dL Arterial Blood Potassium 3.1 L (3.4-4.5) mmol/L Arterial Blood Glucose 120 H (75-99) mg/dL Crossmatch See Detail 01/19/24 01/19/24 01/20/24 Range/Units 18:15 18:15 05:08 WBC 16.9 H 17.0 H (3.8-10.6) k/uL RBC 3.68 L 3.37 L (3.80-5.40) m/uL Hgb 10.6 L (11.4-16.0) gm/dL Hct 31.1 L (34.0-46.0) % RDW 16.6 H 17.5 H (11.5-15.5) % Plt Count 137 L 117 L (150-450) k/uL Neutrophils # 15.7 H 15.3 H (1.3-7.7) k/uL Lymphocytes # 0.4 L 0.7 L (1.0-4.8) k/uL ABG pO2 (83-108) mmHg ABG HCO3 (21-25) mmol/L ABG O2 Saturation (94-97) % ABG Hematocrit (34.0-46.0) % ABG Potassium (3.4-4.5) mmol/L ABG Ionized Calcium (4.5-5.3) mg/dL ABG Glucose (75-99) mg/dL Hemoglobin (11.4-16.0) gm/dL Sodium 134 L (137-145) mmol/L BUN (7-17) mg/dL Glucose 140 H (74-99) mg/dL POC Glucose (mg/dL) (70-110) mg/dL Calcium 7.8 L (8.4-10.2) mg/dL AST 52 H (14-36) U/L Total Protein 5.1 L (6.3-8.2) g/dL Albumin 3.1 L (3.5-5.0) g/dL Arterial Blood Potassium (3.4-4.5) mmol/L Arterial Blood Glucose (75-99) mg/dL Crossmatch 01/20/24 01/20/24 Range/Units 05:08 05:08 WBC (3.8-10.6) k/uL RBC (3.80-5.40) m/uL Hgb (11.4-16.0) gm/dL Hct (34.0-46.0) % RDW (11.5-15.5) % Plt Count (150-450) k/uL Neutrophils # (1.3-7.7) k/uL Lymphocytes # (1.0-4.8) k/uL ABG pO2 (83-108) mmHg ABG HCO3 (21-25) mmol/L ABG O2 Saturation (94-97) % ABG Hematocrit (34.0-46.0) % ABG Potassium (3.4-4.5) mmol/L ABG Ionized Calcium (4.5-5.3) mg/dL ABG Glucose (75-99) mg/dL Hemoglobin (11.4-16.0) gm/dL Sodium 132 L (137-145) mmol/L BUN 18 H (7-17) mg/dL Glucose 112 H (74-99) mg/dL POC Glucose (mg/dL) 127 H (70-110) mg/dL Calcium 7.6 L (8.4-10.2) mg/dL AST (14-36) U/L Total Protein (6.3-8.2) g/dL Albumin (3.5-5.0) g/dL Arterial Blood Potassium (3.4-4.5) mmol/L Arterial Blood Glucose (75-99) mg/dL Crossmatch Assessment and Plan Assessment: 1. 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 NEUROGENIC CLAUDICATION 3. LUMBAR STENOSIS, SEVERE L1-S1 4. LOW BACK PAIN 5. LE WEAKNESS 6. LE RADICULOPATHY Postop day 1 status post [id number] decompression and fusion Plan: 1. LUMBAR DEGENERATIVE SCOLIOSIS SEVERE CORONAL AND SAGITTAL DEFORMITY; NEUROGENIC CLAUDICATION; LUMBAR STENOSIS, SEVERE L1-S1; LOW BACK PAIN; LE WEAKNESS; LE RADICULOPATHY -surgery performed yesterday, , 01/19/2024 [id number] decompression and fusion. Dressing in place over thoracolumbar spine appears to be clean, dry, intact. Moderate output in drain. Maintain drain to full suction at this time. Assess dressing daily. Until pressure stabilizes, maintain patient in the ICU. We will continue to follow patient during stay in hospital. Discharge pending. 2. Appreciate medical management 3. Pain management -[place]; Flexeril; gabapentin 4. DVT prophylaxis - mechanical 5. GI prophylaxis - senna; milk of mag 6. PT/OT -encourage ambulation: Patient encouraged to perform gentle range of motion exercises while resting in bed 7. Encourage incentive spirometer use 8. Discharge planning -pending Time with Patient: Less than 30
--- NOTE | 2024-01-20 14:25 | P.PN ---
Subjective Progress Note Date: 01/20/24 73-year-old female patient, post extensive spine surgery for lumbar degenerative scoliosis and neurogenic claudication along with lumbar stenosis that was severe at the level of L1 S1 along with chronic back pain and lower extremity weakness and radiculopathy. The patient underwent osteotomy with multilevel deformity correction, multilevel fusion/laminectomy T10-S1. The patient encountered dural erosion that was repaired with a fat patch graft. Intraoperatively, the patient lost approximately 900 cc of blood and the patient is currently completing her second unit of packed RBC. The patient's hemoglobin and follow-up is pending. Noted the patient was weaned off the mechanical ventilator and the patient was extubated in the operating room and currently she is laying down flat on 2 L of oxygen by nasal cannula with pulse ox of 99%. She is a bit lethargic and sleepy. Hemodynamically stable on no pressors. She is going to be placed on lactated Ringer at rate of 100 cc an hour. She is on IV cefazolin. No other significant issues for now. Following commands. No extreme questions. Moving all 4 extremities. Adequate alyson assessment of the lower extremities cannot be done. Adequate pulses lower extremities bilaterally. On 01/20/2024, patient is postop day #1. The patient is doing well. Awake and alert and communicating. No issues with pain. CAT scan of the thoracic and lumbar spine was done and showed postsurgical vertebral fixation changes T10-S1. The patient is currently, comfortable on room air oxygen with a pulse ox of 96%. Using incentive spirometer. The white cell count is 17 with a hemoglobin of 10.6. Output from the Hemovac is minimal at this point in time. BUN is 18 with a creatinine of 0.6 and a sodium levels at 132. No reported headaches. Tolerating diet. The patient was able to sit up per orthopedic surgery recommendations. The patient will moved out of the intensive care unit for now. Objective - Vital Signs Vital signs: Vital Signs Temp 98.1 F 01/20/24 04:00 Pulse 61 01/20/24 07:00 Resp 12 01/20/24 07:00 BP 129/66 01/20/24 07:00 Pulse Ox 100 01/20/24 07:00 FiO2 Intake & Output 01/19/24 01/20/24 01/20/24 18:59 06:59 18:59 Intake Total 2812 1200 820 Output Total 1840 410 20 Balance 972 790 800 Weight 64.8 kg Intake: IV 2402 1200 100 Lactated Ringers 1,000 ml 200 1150 100 @ 100 mls/hr IV .Q10H [facility] Rx#:[id number] ceFAZolin 2 gm In Sodium 50 50 Chloride 0.9% 50 ml @ 100 mls/hr IVPB ONCE PRN Rx# :[id number] Oral 720 Blood Product 310 Rc As-1 Unit 310 [id number] Rc As-1 Unit 0 [id number] Other 100 Rc As-1 Unit 100 [id number] Output: Drainage 0 90 Back 0 90 Urine 940 320 20 Estimated Blood Loss 900 Other: Voiding Method Indwelling Catheter Indwelling Catheter ABP, PAP, CO, CI - Last Documented Arterial Blood Pressure 134/49 - Exam The patient appeared well nourished and normally developed. Vital signs as documented. Head exam is unremarkable. No scleral icterus or corneal arcus noted. Neck is without jugular venous distension, thyromegaly, or carotid bruits. Carotid upstrokes are brisk bilaterally. Right IJ tripple lumen Lungs are clear to auscultation and percussion. Cardiac exam reveals the PMI to be normally sized and situated. Rhythm is regular. First and second heart sounds normal. No murmurs, rubs or gallops. Abdominal exam reveals normal bowel sounds, no masses, no organomegaly and no aortic enlargement. Extremities are nonedematous and both femoral and pedal pulses are normal. Examination of the skin revealed no evidence of significant rashes, suspicious appearing nevi or other concerning lesions. Hemovac in the back Neurologically, the patient is awake and alert and the patient does not have any focal neurological deficit. Cranial nerves are essentially intact. The patient is currently on 2 L of oxygen by nasal cannula. - Labs CBC & Chem 7: 01/20/24 05:08 01/20/24 05:08 Labs: Abnormal Lab Results - Last 24 Hours (Table) 01/12/24 01/19/24 01/19/24 Range/Units 10:46 08:40 13:30 WBC (3.8-10.6) k/uL RBC (3.80-5.40) m/uL Hgb (11.4-16.0) gm/dL Hct (34.0-46.0) % RDW (11.5-15.5) % Plt Count (150-450) k/uL Neutrophils # (1.3-7.7) k/uL Lymphocytes # (1.0-4.8) k/uL ABG pH 7.47 H (7.35-7.45) ABG pCO2 32 L (35-45) mmHg ABG pO2 387 H 271 H (83-108) mmHg ABG HCO3 20 L (21-25) mmol/L ABG O2 Saturation 99.2 H 99.2 H (94-97) % ABG Hematocrit 31 L 22 L (34.0-46.0) % ABG Potassium 3.1 L (3.4-4.5) mmol/L ABG Ionized Calcium 4.2 L (4.5-5.3) mg/dL ABG Glucose 114 H 120 H (75-99) mg/dL Hemoglobin 10.2 L 7.1 L (11.4-16.0) gm/dL Sodium (137-145) mmol/L BUN (7-17) mg/dL Glucose (74-99) mg/dL POC Glucose (mg/dL) (70-110) mg/dL Calcium (8.4-10.2) mg/dL AST (14-36) U/L Total Protein (6.3-8.2) g/dL Albumin (3.5-5.0) g/dL Arterial Blood Potassium 3.1 L (3.4-4.5) mmol/L Arterial Blood Glucose 114 H 120 H (75-99) mg/dL Crossmatch See Detail 01/19/24 01/19/24 01/19/24 Range/Units 16:22 18:15 18:15 WBC 16.9 H (3.8-10.6) k/uL RBC 3.68 L (3.80-5.40) m/uL Hgb (11.4-16.0) gm/dL Hct (34.0-46.0) % RDW 16.6 H (11.5-15.5) % Plt Count 137 L (150-450) k/uL Neutrophils # 15.7 H (1.3-7.7) k/uL Lymphocytes # 0.4 L (1.0-4.8) k/uL ABG pH (7.35-7.45) ABG pCO2 (35-45) mmHg ABG pO2 (83-108) mmHg ABG HCO3 (21-25) mmol/L ABG O2 Saturation (94-97) % ABG Hematocrit (34.0-46.0) % ABG Potassium (3.4-4.5) mmol/L ABG Ionized Calcium (4.5-5.3) mg/dL ABG Glucose (75-99) mg/dL Hemoglobin (11.4-16.0) gm/dL Sodium 134 L (137-145) mmol/L BUN (7-17) mg/dL Glucose 140 H (74-99) mg/dL POC Glucose (mg/dL) 148 H (70-110) mg/dL Calcium 7.8 L (8.4-10.2) mg/dL AST 52 H (14-36) U/L Total Protein 5.1 L (6.3-8.2) g/dL Albumin 3.1 L (3.5-5.0) g/dL Arterial Blood Potassium (3.4-4.5) mmol/L Arterial Blood Glucose (75-99) mg/dL Crossmatch 01/20/24 01/20/24 01/20/24 Range/Units 05:08 05:08 05:08 WBC 17.0 H (3.8-10.6) k/uL RBC 3.37 L (3.80-5.40) m/uL Hgb 10.6 L (11.4-16.0) gm/dL Hct 31.1 L (34.0-46.0) % RDW 17.5 H (11.5-15.5) % Plt Count 117 L (150-450) k/uL Neutrophils # 15.3 H (1.3-7.7) k/uL Lymphocytes # 0.7 L (1.0-4.8) k/uL ABG pH (7.35-7.45) ABG pCO2 (35-45) mmHg ABG pO2 (83-108) mmHg ABG HCO3 (21-25) mmol/L ABG O2 Saturation (94-97) % ABG Hematocrit (34.0-46.0) % ABG Potassium (3.4-4.5) mmol/L ABG Ionized Calcium (4.5-5.3) mg/dL ABG Glucose (75-99) mg/dL Hemoglobin (11.4-16.0) gm/dL Sodium 132 L (137-145) mmol/L BUN 18 H (7-17) mg/dL Glucose 112 H (74-99) mg/dL POC Glucose (mg/dL) 127 H (70-110) mg/dL Calcium 7.6 L (8.4-10.2) mg/dL AST (14-36) U/L Total Protein (6.3-8.2) g/dL Albumin (3.5-5.0) g/dL Arterial Blood Potassium (3.4-4.5) mmol/L Arterial Blood Glucose (75-99) mg/dL Crossmatch Assessment and Plan Plan: T10-S1, and the multilevel decompression and fusion , post op day #1. Surgery was complicated by blood loss and dural tear and the patient received a total of 2 units of packed RBC and the patient also received a patch graft to the dural tear. Currently hemodynamically stable. Extubated and the patient is currently on room air oxygen. Pain is under adequate control. CAT scan of the thoracic and lumbar spine was reviewed and shows essentially postsurgical changes. Output from the Hemovac is minimal. No headaches. No altered mentation. Chronic lower back pain, neurologic claudication. The patient has lumbar degenerative scoliosis there was severe with coronal and sagittal deformity and neurogenic claudication and lumbar stenosis severe at the level of L1-S1 complicated by chronic back pain, lower extremity weakness and radiculopathy. At this point in time, the motor evaluation in the lower extremities are 4 out of 5 with adequate vascular supply and adequate pulses and capillary refills. Hypertension Degenerative arthritis Hypothyroidism Cervical cancer Plan Change IV fluids to KVO Titrate oxygen flow to maintain saturation above 90%, currently on room air oxygen Dilaudid for pain control in combination with Flexeril IV cefazolin Monitor the output from the Hemovac May be able to sit up in a chair Will transfer this patient out of the intensive care unit. The triple-lumen catheter can be removed.
--- NOTE | 2024-01-20 14:42 | P.CONS ---
History of Present Illness - Reason for Consult Consult date: 01/20/24 Medical management - Chief Complaint T10-S1/multilevel decompression and fusion - History of Present Illness 73-year-old female patient, post extensive spine surgery for lumbar degenerative scoliosis and neurogenic claudication along with lumbar stenosis that was severe at the level of L1 S1 along with chronic back pain and lower extremity weakness and radiculopathy. The patient underwent osteotomy with multilevel deformity correction, multilevel fusion/laminectomy T10-S1. The patient encountered dural erosion that was repaired with a fat patch graft. Intraoperatively, the patient lost approximately 900 cc of blood and the patient is currently completing her second unit of packed RBC. The patient's hemoglobin and follow-up is pending. Noted the patient was weaned off the mechanical ventilator and the patient was extubated in the operating room and currently she is laying down flat on 2 L of oxygen by nasal cannula with pulse ox of 99%. S Review of Systems REVIEW OF SYSTEMS: CONSTITUTIONAL: No fever, no malaise, no fatigue. HEENT: No recent visual problems or hearing problems. Denied any sore throat. CARDIOVASCULAR: No chest pain, orthopnea, PND, no palpitations, no syncope. PULMONARY: No shortness of breath, no cough, no hemoptysis. GASTROINTESTINAL: No diarrhea, no nausea, no vomiting, no abdominal pain. NEUROLOGICAL: No headaches, no weakness, no numbness. HEMATOLOGICAL: Denies any bleeding or petechiae. GENITOURINARY: Denies any burning micturition, frequency, or urgency. MUSCULOSKELETAL/RHEUMATOLOGICAL: Denies any joint pain, swelling, or any muscle pain. ENDOCRINE: Denies any polyuria or polydipsia. The rest of the 14-point review of systems is negative. Past Medical History Past Medical History: Cancer, GERD/Reflux, Hypertension, Osteoarthritis (OA), Skin Disorder, Thyroid Disorder Additional Past Medical History / Comment(s): SEASONAL ALLERGIES. lower back pain collapsed disc x3, hx cervical cancer. scratch to rt ankle area is a little red and sore. pt has soaked it daily but it has not scabbed over. has been applying neosporin daily. stopped today.pt to let Dr Rahman know today. History of Any Multi-Drug Resistant Organisms: None Reported Year Discovered:: 01/12/24 MDRO Source:: nasal Past Surgical History: Section, Hysterectomy Additional Past Surgical History / Comment(s): CATARACTS BILATERAL, cold knife conization Past Anesthesia/Blood Transfusion Reactions: No Reported Reaction Smoking Status: Former smoker - Past Family History Father Family Medical History: Coronary Artery Disease (CAD) Mother Family Medical History: Cancer Additional Family Medical History / Comment(s): lung cancer Brother(s) Family Medical History: CVA/TIA Medications and Allergies Home Medications Medication Instructions Recorded Confirmed Type Fexofenadine/Pseudoephedrine 1 tab PO DAILY PRN 10/29/14 01/19/24 History [Melanie-D 12 Hour Tablet] Levothyroxine Sodium [Synthroid] 100 mcg PO QAM 10/29/14 01/19/24 History Lisinopril/Hydrochlorothiazide 1 tab PO QAM 10/29/14 01/19/24 History [Lisinopril-Hctz 10-12.5 mg Tab] [place]-3 Fatty Acids/Fish Oil [Fish 1 cap PO DAILY 10/29/14 01/19/24 History Oil 1,000 mg Softgel] Naproxen Sodium [Aleve] 220 mg PO BID 10/30/21 01/19/24 History Cholecalciferol [Vitamin D3 (25 50 mcg PO DAILY 01/16/24 01/19/24 History Mcg = 1000 Iu)] Escitalopram [Lexapro] 5 mg PO DAILY 01/16/24 01/19/24 History Esomeprazole Magnesium [NexIUM] 40 mg PO DAILY 01/16/24 01/19/24 History Folic Acid 1 mg PO DAILY 01/16/24 01/19/24 History Ibandronate Sodium [Boniva] 150 mg PO QMONTHLY 01/16/24 01/19/24 History metHOTREXate sodium [Methotrexate] 7.5 mg PO TU 01/16/24 01/19/24 History Allergies Allergy/AdvReac Type Severity Reaction Status Date / Time No Known Allergies Allergy Verified 01/19/24 06:14 Physical Exam Vitals: Vital Signs Temp Pulse Pulse Resp BP BP Pulse Ox 01/20/24 12:00 70 12 103/52 91 L 01/20/24 11:56 70 18 114/58 94 L 01/20/24 11:52 75 18 98/51 92 L 01/20/24 11:50 75 17 79/38 95 01/20/24 11:30 66 13 117/59 96 01/20/24 11:00 62 12 121/51 98 01/20/24 10:00 64 16 118/59 100 01/20/24 09:00 70 19 98 01/20/24 08:00 98.4 F 66 58 L 18 119/58 99 01/20/24 07:00 61 12 129/66 100 01/20/24 06:00 62 13 131/58 100 01/20/24 05:00 62 13 130/58 100 01/20/24 04:00 98.1 F 63 12 132/65 100 01/20/24 03:00 63 25 H 138/83 100 01/20/24 02:00 63 11 L 106/68 100 01/20/24 01:00 68 20 129/63 95 01/20/24 00:00 98.6 F 62 14 115/68 100 01/19/24 23:00 62 13 131/65 100 01/19/24 22:00 60 7 L 125/64 100 01/19/24 21:00 60 10 L 120/65 100 01/19/24 20:00 97.7 F 60 8 L 142/77 100 01/19/24 19:00 60 18 142/72 95 01/19/24 17:45 57 L 10 L 142/72 97 01/19/24 17:15 56 L 10 L 142/72 01/19/24 17:00 58 L 10 L 01/19/24 16:45 61 13 01/19/24 16:30 65 25 H 98/70 97 01/19/24 16:13 58 L 14 114/59 99 01/19/24 16:00 14 01/19/24 15:58 57 L 14 114/59 99 01/19/24 15:43 60 14 102/56 98 01/19/24 15:28 57 L 14 101/53 100 01/19/24 15:13 56 L 14 95/52 100 01/19/24 14:58 57 L 14 101/50 100 01/19/24 14:43 97.3 F L 74 14 118/51 100 Intake and Output 01/19/24 01/20/24 01/20/24 22:59 06:59 14:59 Intake Total 650 800 820 Output Total 205 275 90 Balance 445 525 730 Intake: IV 650 800 100 Lactated Ringers 1,000 ml 600 750 100 @ 100 mls/hr IV .Q10H [facility] Rx#:[id number] ceFAZolin 2 gm In Sodium 50 50 Chloride 0.9% 50 ml @ 100 mls/hr IVPB ONCE PRN Rx# :[id number] Oral 720 Blood Product 0 Rc As-1 Unit 0 [id number] Output: Drainage 0 90 Back 0 90 Urine 205 185 90 Other: Voiding Method Indwelling Catheter Indwelling Catheter Indwelling Catheter Weight 64.8 kg ABP, PAP, CO, CI - Last 8 Hours Arterial Blood Pressure 133/41 Arterial Blood Pressure 138/58 Arterial Blood Pressure 116/43 Arterial Blood Pressure 134/49 Arterial Blood Pressure 156/59 The patient appeared well nourished and normally developed. Vital signs as documented. Head exam is unremarkable. No scleral icterus or corneal arcus noted. Neck is without jugular venous distension, thyromegaly, or carotid bruits. Carotid upstrokes are brisk bilaterally. Right IJ tripple lumen Lungs are clear to auscultation and percussion. Cardiac exam reveals the PMI to be normally sized and situated. Rhythm is reg ular. First and second heart sounds normal. No murmurs, rubs or gallops. Abdominal exam reveals normal bowel sounds, no masses, no organomegaly and no aortic enlargement. Extremities are nonedematous and both femoral and pedal pulses are normal. Examination of the skin revealed no evidence of significant rashes, suspicious appearing nevi or other concerning lesions. Hemovac in the back Neurologically, the patient is awake and alert and the patient does not have any focal neurological deficit. Cranial nerves are essentially intact. The patient is currently on 2 L of oxygen by nasal cannula. Results CBC & Chem 7: 01/20/24 05:08 01/20/24 05:08 Labs: Abnormal Lab Results - Last 24 Hours (Table) 01/12/24 01/19/24 01/19/24 Range/Units 10:46 13:30 16:22 WBC (3.8-10.6) k/uL RBC (3.80-5.40) m/uL Hgb (11.4-16.0) gm/dL Hct (34.0-46.0) % RDW (11.5-15.5) % Plt Count (150-450) k/uL Neutrophils # (1.3-7.7) k/uL Lymphocytes # (1.0-4.8) k/uL ABG pO2 271 H (83-108) mmHg ABG HCO3 20 L (21-25) mmol/L ABG O2 Saturation 99.2 H (94-97) % ABG Hematocrit 22 L (34.0-46.0) % ABG Potassium 3.1 L (3.4-4.5) mmol/L ABG Ionized Calcium 4.2 L (4.5-5.3) mg/dL ABG Glucose 120 H (75-99) mg/dL Hemoglobin 7.1 L (11.4-16.0) gm/dL Sodium (137-145) mmol/L BUN (7-17) mg/dL Glucose (74-99) mg/dL POC Glucose (mg/dL) 148 H (70-110) mg/dL Calcium (8.4-10.2) mg/dL AST (14-36) U/L Total Protein (6.3-8.2) g/dL Albumin (3.5-5.0) g/dL Arterial Blood Potassium 3.1 L (3.4-4.5) mmol/L Arterial Blood Glucose 120 H (75-99) mg/dL Crossmatch See Detail 01/19/24 01/19/24 01/20/24 Range/Units 18:15 18:15 05:08 WBC 16.9 H 17.0 H (3.8-10.6) k/uL RBC 3.68 L 3.37 L (3.80-5.40) m/uL Hgb 10.6 L (11.4-16.0) gm/dL Hct 31.1 L (34.0-46.0) % RDW 16.6 H 17.5 H (11.5-15.5) % Plt Count 137 L 117 L (150-450) k/uL Neutrophils # 15.7 H 15.3 H (1.3-7.7) k/uL Lymphocytes # 0.4 L 0.7 L (1.0-4.8) k/uL ABG pO2 (83-108) mmHg ABG HCO3 (21-25) mmol/L ABG O2 Saturation (94-97) % ABG Hematocrit (34.0-46.0) % ABG Potassium (3.4-4.5) mmol/L ABG Ionized Calcium (4.5-5.3) mg/dL ABG Glucose (75-99) mg/dL Hemoglobin (11.4-16.0) gm/dL Sodium 134 L (137-145) mmol/L BUN (7-17) mg/dL Glucose 140 H (74-99) mg/dL POC Glucose (mg/dL) (70-110) mg/dL Calcium 7.8 L (8.4-10.2) mg/dL AST 52 H (14-36) U/L Total Protein 5.1 L (6.3-8.2) g/dL Albumin 3.1 L (3.5-5.0) g/dL Arterial Blood Potassium (3.4-4.5) mmol/L Arterial Blood Glucose (75-99) mg/dL Crossmatch 01/20/24 01/20/24 Range/Units 05:08 05:08 WBC (3.8-10.6) k/uL RBC (3.80-5.40) m/uL Hgb (11.4-16.0) gm/dL Hct (34.0-46.0) % RDW (11.5-15.5) % Plt Count (150-450) k/uL Neutrophils # (1.3-7.7) k/uL Lymphocytes # (1.0-4.8) k/uL ABG pO2 (83-108) mmHg ABG HCO3 (21-25) mmol/L ABG O2 Saturation (94-97) % ABG Hematocrit (34.0-46.0) % ABG Potassium (3.4-4.5) mmol/L ABG Ionized Calcium (4.5-5.3) mg/dL ABG Glucose (75-99) mg/dL Hemoglobin (11.4-16.0) gm/dL Sodium 132 L (137-145) mmol/L BUN 18 H (7-17) mg/dL Glucose 112 H (74-99) mg/dL POC Glucose (mg/dL) 127 H (70-110) mg/dL Calcium 7.6 L (8.4-10.2) mg/dL AST (14-36) U/L Total Protein (6.3-8.2) g/dL Albumin (3.5-5.0) g/dL Arterial Blood Potassium (3.4-4.5) mmol/L Arterial Blood Glucose (75-99) mg/dL Crossmatch Assessment and Plan Assessment: T10-S1, and the multilevel decompression and fusion , post op day #0. Surgery was complicated by blood loss and dural tear and the patient received a total of 2 units of packed RBC and the patient also received a patch graft to the dural tear. Currently hemodynamically stable. Extubated on 2 L of oxygen by nasal cannula Chronic lower back pain, neurologic claudication Hypertension Degenerative arthritis Hypothyroidism Cervical cancer -- Patient remains in ICU; currently on IV fluids in form of lactated Ringer at 100 cc an hour -- Saturating above 90% on O2 at 2 L per nasal cannula -- Continue with current dose of Dilaudid and Flexeril for pain control -Home medications reviewed; levothyroxine 100 mcg daily, lisinopril/hydrochlorothiazide 10-12.5 mg daily
[2024-01-20] MEDS ORDERED: HYDROmorphone 1 MG/ML 1 ML SYRINGE IVP PRN (16:06)
--- NOTE | 2024-01-21 09:25 | P.PN ---
Subjective Progress Note Date: 01/21/24 Principal diagnosis: 1. 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 NEUROGENIC CLAUDICATION 3. LUMBAR STENOSIS, SEVERE L1-S1 4. LOW BACK PAIN 5. LE WEAKNESS 6. LE RADICULOPATHY Patient was seen at bedside this morning lying in the semirecumbent position in ICU with drain in place over lumbar spine and Yee/catheter in place. Patient says overall she is feeling pretty well since surgery. Oral medication has been helping control pain somewhat. She says she is using incentive spirometer every hour and trying to perform gentle range of motion exercises while resting in bed. Patient denies any other significant issues at this time. Objective - Vital Signs Vital signs: Vital Signs Temp 98.3 F 01/21/24 08:00 Pulse 72 01/21/24 08:00 Resp 16 01/21/24 08:00 BP 116/57 01/21/24 08:00 Pulse Ox 97 01/21/24 08:00 FiO2 Intake & Output 01/20/24 01/21/24 01/21/24 18:59 06:59 18:59 Intake Total 970 1100 410 Output Total 280 425 35 Balance 690 675 375 Intake: IV 100 1100 100 Lactated Ringers 1,000 ml 100 1100 100 @ 100 mls/hr IV .Q10H [facility] Rx#:[id number] Oral 870 Blood Product 310 Rc As-1 Unit 310 [id number] Output: Urine 280 425 35 Other: Voiding Method Indwelling Catheter Indwelling Catheter Indwelling Catheter ABP, PAP, CO, CI - Last Documented Arterial Blood Pressure 133/41 - Exam Inspection: Dressing is present over thoracolumbar spine. Some minor saturation over dressing. Dressing was changed at bedside this morning. Drain kept in place at this time. Moderate serosanguineous output in drain overnight. Maintain dressing to gravity Sensation: Equal, symmetric, bilat intact throughout extremities on exam. Palpation: Fair amount of tenderness to palpation diffusely throughout the spine at midline near incision. NTTP throughout rest of exam Range of motion: Patient does have limited range of motion in bilateral lower extremities on exam secondary to recent surgery and referred stiffness and pain to the low back. Motor: 5/5 in all major motor groups in bilateral upper extremities. 4/5 in bilateral hips in flexion. 4/5 in bilateral knee extension and flexion. 4-/5 in plantarflexion in the right lower extremity. 4/5 in plantarflexion of left lower extremity. 3/5 in left ankle dorsi flexion. 4/5 in right ankle dorsiflexion. EHL and FHL 4/5 bilaterally Neurovascular: Radial pulse intact bilaterally. DP pulses palpable bilaterally. Cap refill under 3 seconds in digits of upper extremities. Special test: Negative Homans bilaterally. Negative clonus bilaterally. Negative Nelda bilaterally. - Labs CBC & Chem 7: 01/20/24 05:08 01/20/24 05:08 Labs: Abnormal Lab Results - Last 24 Hours (Table) 01/12/24 Range/Units 10:46 Crossmatch See Detail Assessment and Plan Assessment: 1. 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 NEUROGENIC CLAUDICATION 3. LUMBAR STENOSIS, SEVERE L1-S1 4. LOW BACK PAIN 5. LE WEAKNESS 6. LE RADICULOPATHY Postop day 2 status post [id number] decompression and fusion Plan: 1. LUMBAR DEGENERATIVE SCOLIOSIS SEVERE CORONAL AND SAGITTAL DEFORMITY; NEUROGENIC CLAUDICATION; LUMBAR STENOSIS, SEVERE L1-S1; LOW BACK PAIN; LE WEAKNESS; LE RADICULOPATHY -surgery performed , 01/19/[id number] decompression and fusion. Dressing in place over thoracolumbar spine. Dressing changed at bedside this morning moderate output in drain. Maintain drain to gravity. Assess dressing daily. We will continue to follow patient during stay in hospital. Discharge pending. 2. Appreciate medical management 3. Pain management -[place]; Flexeril; gabapentin 4. DVT prophylaxis - mechanical 5. GI prophylaxis - senna; milk of mag 6. PT/OT -encourage ambulation: Patient encouraged to perform gentle range of motion exercises while resting in bed 7. Encourage incentive spirometer use 8. Discharge planning -pending Time with Patient: Less than 30
[2024-01-21 12:16] LABS: Anisocytosis Slight; Basophils % (A) 0 %; Eosinophils # (A) 0.1 k/uL (0-0.7); Eosinophils % (A) 0 %; HGB 9.9 gm/dL (11.4-16.0); Lymphocytes # (A) 0.7 k/uL (1.0-4.8); Lymphocytes % (A) 5 %; MCH 32.8 pg (25.0-35.0); MCHC 34.2 g/dL (31.0-37.0); Mean Platelet Volume 9.3; Monocytes % (A) 7 %; Neutrophils # (A) 12.6 k/uL (1.3-7.7); Neutrophils % (A) 87 %; Platelet Count 119 k/uL (150-450); RBC 3.02 m/uL (3.80-5.40); WBC 14.4 k/uL (3.8-10.6)
[2024-01-21 13:02] LABS: African American GFR (CKD) >90 (>60 ml/min/1.73 sqM); Anion Gap 1 mmol/L; Blood Urea Nitrogen 15 mg/dL (7-17); Calcium 7.5 mg/dL (8.4-10.2); Carbon Dioxide 28 mmol/L (22-30); Chloride 98 mmol/L (98-107); Glucose 86 mg/dL (74-99); Non-African American GFR(CKD) 89 (>60 ml/min/1.73 sqM); Potassium 3.7 mmol/L (3.5-5.1); Sodium 127 mmol/L (137-145)
[2024-01-21] MEDS: LEVOTHYROXINE 100 MCG TAB PO SCH (13:06)
--- NOTE | 2024-01-21 14:13 | P.PN ---
Subjective Progress Note Date: 01/21/24 73-year-old female patient, post extensive spine surgery for lumbar degenerative scoliosis and neurogenic claudication along with lumbar stenosis that was severe at the level of L1 S1 along with chronic back pain and lower extremity weakness and radiculopathy. The patient underwent osteotomy with multilevel deformity correction, multilevel fusion/laminectomy T10-S1. The patient encountered dural erosion that was repaired with a fat patch graft. Intraoperatively, the patient lost approximately 900 cc of blood and the patient is currently completing her second unit of packed RBC. The patient's hemoglobin and follow-up is pending. Noted the patient was weaned off the mechanical ventilator and the patient was extubated in the operating room and currently she is laying down flat on 2 L of oxygen by nasal cannula with pulse ox of 99%. She is a bit lethargic and sleepy. Hemodynamically stable on no pressors. She is going to be placed on lactated Ringer at rate of 100 cc an hour. She is on IV cefazolin. No other significant issues for now. Following commands. No extreme questions. Moving all 4 extremities. Adequate alyson assessment of the lower extremities cannot be done. Adequate pulses lower extremities bilaterally. On 01/20/2024, patient is postop day #1. The patient is doing well. Awake and alert and communicating. No issues with pain. CAT scan of the thoracic and lumbar spine was done and showed postsurgical vertebral fixation changes T10-S1. The patient is currently, comfortable on room air oxygen with a pulse ox of 96%. Using incentive spirometer. The white cell count is 17 with a hemoglobin of 10.6. Output from the Hemovac is minimal at this point in time. BUN is 18 with a creatinine of 0.6 and a sodium levels at 132. No reported headaches. Tolerating diet. The patient was able to sit up per orthopedic surgery recommendations. The patient will moved out of the intensive care unit for now. On 01/21/2024, the patient is resting comfortably on a chair. Hemovac is produced around 90 cc and there is no evidence of any active bleeding. Pain is under adequate control and the patient is taking [place] for pain control. No significant neurological deficits in the lower extremity the patient continues to have weakness. Unable to ambulate yet. No nausea. No emesis. No chest pain. No headaches. Room air pulse ox is 95%. No other significant events overnight. The patient is currently postop day #2 Objective - Vital Signs Vital signs: Vital Signs Temp 98.3 F 01/21/24 08:00 Pulse 72 01/21/24 08:00 Resp 16 01/21/24 08:00 BP 116/57 01/21/24 08:00 Pulse Ox 97 01/21/24 08:00 FiO2 Intake & Output 01/20/24 01/21/24 01/21/24 18:59 06:59 18:59 Intake Total 970 1100 410 Output Total 280 425 325 Balance 690 675 85 Intake: IV 100 1100 100 Lactated Ringers 1,000 ml 100 1100 100 @ 100 mls/hr IV .Q10H [facility] Rx#:[id number] Oral 870 Blood Product 310 Rc As-1 Unit 310 [id number] Output: Drainage 290 Back 290 Urine 280 425 35 Other: Voiding Method Indwelling Catheter Indwelling Catheter Indwelling Catheter ABP, PAP, CO, CI - Last Documented Arterial Blood Pressure 133/41 - Exam The patient appeared well nourished and normally developed. Vital signs as documented. Head exam is unremarkable. No scleral icterus or corneal arcus noted. Neck is without jugular venous distension, thyromegaly, or carotid bruits. Carotid upstrokes are brisk bilaterally. Right IJ tripple lumen Lungs are clear to auscultation and percussion. Cardiac exam reveals the PMI to be normally sized and situated. Rhythm is regular. First and second heart sounds normal. No murmurs, rubs or gallops. Abdominal exam reveals normal bowel sounds, no masses, no organomegaly and no aortic enlargement. Extremities are nonedematous and both femoral and pedal pulses are normal. Examination of the skin revealed no evidence of significant rashes, suspicious appearing nevi or other concerning lesions. Hemovac in the back Neurologically, the patient is awake and alert and the patient does not have any focal neurological deficit. Cranial nerves are essentially intact. The patient is currently on 2 L of oxygen by nasal cannula. - Labs CBC & Chem 7: 01/21/24 10:29 01/21/24 10:29 Labs: Abnormal Lab Results - Last 24 Hours (Table) 01/12/24 Range/Units 10:46 Crossmatch See Detail Assessment and Plan Plan: T10-S1, and the multilevel decompression and fusion , post op day #2. Surgery was complicated by blood loss and dural tear and the patient received a total of 2 units of packed RBC and the patient also received a patch graft to the dural tear. Currently hemodynamically stable. Extubated and the patient is currently on room air oxygen. Pain is under adequate control. CAT scan of the thoracic and lumbar spine was reviewed and shows essentially postsurgical changes. Output from the Hemovac is noted and the drain will be kept in place no headaches. No altered mentation. Chronic lower back pain, neurologic claudication. The patient has lumbar degenerative scoliosis there was severe with coronal and sagittal deformity and neurogenic claudication and lumbar stenosis severe at the level of L1-S1 compl icated by chronic back pain, lower extremity weakness and radiculopathy. At this point in time, the motor evaluation in the lower extremities are 4 out of 5 with adequate vascular supply and adequate pulses and capillary refills. Hypertension Degenerative arthritis Hypothyroidism Cervical cancer Plan Titrate oxygen flow to maintain saturation above 90%, currently on room air oxygen Dilaudid for pain control in combination with Flexeril Restart Lexapro Restart Synthroid Monitor the output from the Hemovac Increase mobility as tolerated Back brace Will transfer this patient out of the intensive care unit.
[2024-01-21] MEDS: ESCITALOPRAM 5 MG TAB PO SCH (15:55)
--- NOTE | 2024-01-21 22:48 | P.PN ---
Subjective Progress Note Date: 01/21/24 73-year-old female patient, post extensive spine surgery for lumbar degenerative scoliosis and neurogenic claudication along with lumbar stenosis that was severe at the level of L1 S1 along with chronic back pain and lower extremity weakness and radiculopathy. The patient underwent osteotomy with multilevel deformity correction, multilevel fusion/laminectomy T10-S1. The patient encountered dural erosion that was repaired with a fat patch graft. Intraoperatively, the patient lost approximately 900 cc of blood and the patient is currently completing her second unit of packed RBC. The patient's hemoglobin and follow-up is pending. Noted the patient was weaned off the mechanical ventilator and the patient was extubated in the operating room and currently she is laying down flat on 2 L of oxygen by nasal cannula with pulse ox of 99%. --Patient is POD#2 Objective - Vital Signs Vital signs: Vital Signs Temp 98.3 F 01/21/24 08:00 Pulse 72 01/21/24 08:00 Resp 16 01/21/24 08:00 BP 116/57 01/21/24 08:00 Pulse Ox 97 01/21/24 08:00 FiO2 Intake & Output 01/20/24 01/21/24 01/21/24 18:59 06:59 18:59 Intake Total 970 1100 410 Output Total 280 425 325 Balance 690 675 85 Intake: IV 100 1100 100 Lactated Ringers 1,000 ml 100 1100 100 @ 100 mls/hr IV .Q10H [facility] Rx#:[id number] Oral 870 Blood Product 310 Rc As-1 Unit 310 [id number] Output: Drainage 290 Back 290 Urine 280 425 35 Other: Voiding Method Indwelling Catheter Indwelling Catheter Indwelling Catheter ABP, PAP, CO, CI - Last Documented Arterial Blood Pressure 133/41 - Exam The patient appeared well nourished and normally developed. Vital signs as documented. Head exam is unremarkable. No scleral icterus or corneal arcus noted. Neck is without jugular venous distension, thyromegaly, or carotid bruits. Carotid upstrokes are brisk bilaterally. Right IJ tripple lumen Lungs are clear to auscultation and percussion. Cardiac exam reveals the PMI to be normally sized and situated. Rhythm is regular. First and second heart sounds normal. No murmurs, rubs or gallops. Abdominal exam reveals normal bowel sounds, no masses, no organomegaly and no aortic enlargement. Extremities are nonedematous and both femoral and pedal pulses are normal. Examination of the skin revealed no evidence of significant rashes, suspicious appearing nevi or other concerning lesions. Hemovac in the back Neurologically, the patient is awake and alert and the patient does not have any focal neurological deficit. Cranial nerves are essentially intact. The patient is currently on 2 L of oxygen by nasal cannula. - Labs CBC & Chem 7: 01/21/24 10:29 01/21/24 10:29 Labs: Abnormal Lab Results - Last 24 Hours (Table) 01/12/24 Range/Units 10:46 Crossmatch See Detail Assessment and Plan Assessment: T10-S1, and the multilevel decompression and fusion , post op day #0. Surgery was complicated by blood loss and dural tear and the patient received a total of 2 units of packed RBC and the patient also received a patch graft to the dural tear. Currently hemodynamically stable. Extubated on 2 L of oxygen by nasal cannula Chronic lower back pain, neurologic claudication Hypertension Degenerative arthritis Hypothyroidism Cervical cancer -- Patient remains in ICU; currently on IV fluids in form of lactated Ringer at 100 cc an hour -- Saturating above 90% on O2 at 2 L per nasal cannula -- Continue with current dose of Dilaudid and Flexeril for pain control -Home medications reviewed; levothyroxine 100 mcg daily, lisinopril/hydrochlorothiazide 10-12.5 mg daily
[2024-01-22 10:29] LABS: Anisocytosis Slight; Basophils % (A) 0 %; Eosinophils % (A) 0 %; HCT 29.7 % (34.0-46.0); Lymphocytes # (A) 0.6 k/uL (1.0-4.8); Lymphocytes % (A) 5 %; MCH 31.9 pg (25.0-35.0); MCHC 33.6 g/dL (31.0-37.0); MCV 94.9 fL (80.0-100.0); Mean Platelet Volume 8.8; Monocytes # (A) 0.7 k/uL (0-1.0); Monocytes % (A) 6 %; Neutrophils # (A) 10.4 k/uL (1.3-7.7); Neutrophils % (A) 88 %; Platelet Count 143 k/uL (150-450); RBC 3.13 m/uL (3.80-5.40); RDW 16.7 % (11.5-15.5); WBC 11.8 k/uL (3.8-10.6)
[2024-01-22 10:43] LABS: African American GFR (CKD) >90 (>60 ml/min/1.73 sqM); Anion Gap 2 mmol/L; Blood Urea Nitrogen 11 mg/dL (7-17); Calcium 7.9 mg/dL (8.4-10.2); Carbon Dioxide 29 mmol/L (22-30); Chloride 100 mmol/L (98-107); Glucose 92 mg/dL (74-99); Non-African American GFR(CKD) >90 (>60 ml/min/1.73 sqM); Potassium 3.6 mmol/L (3.5-5.1); Sodium 131 mmol/L (137-145)
[2024-01-22] MEDS: ENOXAPARIN 30 MG/0.3 ML SYRINGE SQ SCH (11:29)
--- NOTE | 2024-01-22 12:12 | P.PN ---
Subjective Progress Note Date: 01/22/24 Principal diagnosis: 1. 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 NEUROGENIC CLAUDICATION 3. LUMBAR STENOSIS, SEVERE L1-S1 4. LOW BACK PAIN 5. LE WEAKNESS 6. LE RADICULOPATHY Patient was seen at bedside this morning lying in the semirecumbent position in 3S with dressing present over thoracolumbar spine and Yee/catheter in place. Patient says overall she is feeling pretty well since surgery. Oral medication has been helping control pain somewhat. She says she is using incentive spirometer every hour and trying to perform gentle range of motion exercises while resting in bed. Patient denies any other significant issues at this time. Objective - Vital Signs Vital signs: Vital Signs Temp 97.8 F 01/22/24 11:24 Pulse 79 01/22/24 11:24 Resp 16 01/22/24 11:24 BP 178/82 01/22/24 11:24 Pulse Ox 99 01/22/24 11:24 FiO2 Intake & Output 01/21/24 01/22/24 01/22/24 18:59 06:59 18:59 Intake Total 2060 300 Output Total 1260 1240 Balance 800 -940 Weight 64.7 kg Intake: IV 1100 300 Lactated Ringers 1,000 ml 1100 300 @ 100 mls/hr IV .Q10H [facility] Rx#:[id number] Oral 650 Blood Product 310 Rc As-1 Unit 310 [id number] Output: Drainage 530 40 Back 530 40 Urine 730 1200 Other: Voiding Method Indwelling Catheter Indwelling Catheter ABP, PAP, CO, CI - Last Documented Arterial Blood Pressure 133/41 - Exam Inspection: Dressing is present over thoracolumbar spine. Drain came out from back yesterday while patient was sleeping. Drain stitch was removed and dressing placed over drain incision. Some minor saturation over dressing. Dressing was reinforced at bedside this morning. Sensation: Equal, symmetric, bilat intact throughout extremities on exam. Palpation: Fair amount of tenderness to palpation diffusely throughout the spine at midline near incision. NTTP throughout rest of exam Range of motion: Patient does have limited range of motion in bilateral lower extremities on exam secondary to recent surgery and referred stiffness and pain to the low back. Motor: 5/5 in all major motor groups in bilateral upper extremities. 4/5 in bilateral hips in flexion. 4/5 in bilateral knee extension and flexion. 4-/5 in plantarflexion in the right lower extremity. 4/5 in plantarflexion of left lower extremity. 3/5 in left ankle dorsi flexion. 4/5 in right ankle dorsiflexion. EHL and FHL 4/5 bilaterally Neurovascular: Radial pulse intact bilaterally. DP pulses palpable bilaterally. Cap refill under 3 seconds in digits of upper extremities. Special test: Negative Homans bilaterally. Negative clonus bilaterally. Negative Nelda bilaterally. - Labs CBC & Chem 7: 01/22/24 10:09 01/22/24 10:09 Labs: Abnormal Lab Results - Last 24 Hours (Table) 01/21/24 01/21/24 01/22/24 Range/Units 10:29 10:29 10:09 WBC 14.4 H 11.8 H (3.8-10.6) k/uL RBC 3.02 L 3.13 L (3.80-5.40) m/uL Hgb 9.9 L 10.0 L (11.4-16.0) gm/dL Hct 29.0 L 29.7 L (34.0-46.0) % RDW 17.0 H 16.7 H (11.5-15.5) % Plt Count 119 L 143 L (150-450) k/uL Neutrophils # 12.6 H 10.4 H (1.3-7.7) k/uL Lymphocytes # 0.7 L 0.6 L (1.0-4.8) k/uL Sodium 127 L (137-145) mmol/L Calcium 7.5 L (8.4-10.2) mg/dL 01/22/24 Range/Units 10:09 WBC (3.8-10.6) k/uL RBC (3.80-5.40) m/uL Hgb (11.4-16.0) gm/dL Hct (34.0-46.0) % RDW (11.5-15.5) % Plt Count (150-450) k/uL Neutrophils # (1.3-7.7) k/uL Lymphocytes # (1.0-4.8) k/uL Sodium 131 L (137-145) mmol/L Calcium 7.9 L (8.4-10.2) mg/dL Assessment and Plan Assessment: 1. 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 NEUROGENIC CLAUDICATION 3. LUMBAR STENOSIS, SEVERE L1-S1 4. LOW BACK PAIN 5. LE WEAKNESS 6. LE RADICULOPATHY Postop day 3 status post [id number] decompression and fusion Plan: 1. LUMBAR DEGENERATIVE SCOLIOSIS SEVERE CORONAL AND SAGITTAL DEFORMITY; NEUROGENIC CLAUDICATION; LUMBAR STENOSIS, SEVERE L1-S1; LOW BACK PAIN; LE WEAKNESS; LE RADICULOPATHY -surgery performed , 01/19/[id number] decompression and fusion. Dressing in place over thoracolumbar spine. Dressing reinforced at bedside this morning. Drain stitch was removed this morning as patient removed drain by accident last night. assess dressing daily. We will continue to follow patient during stay in hospital. Discharge pending. 2. Appreciate medical management 3. Pain management -[place]; Flexeril; gabapentin 4. DVT prophylaxis - mechanical 5. GI prophylaxis - senna; milk of mag 6. PT/OT -encourage ambulation: Patient encouraged to perform gentle range of motion exercises while resting in bed 7. Encourage incentive spirometer use 8. Discharge planning -pending Time with Patient: Less than 30
--- NOTE | 2024-01-22 12:33 | P.PN ---
Subjective Progress Note Date: 01/22/24 73-year-old female patient, post extensive spine surgery for lumbar degenerative scoliosis and neurogenic claudication along with lumbar stenosis that was severe at the level of L1 S1 along with chronic back pain and lower extremity weakness and radiculopathy. The patient underwent osteotomy with multilevel deformity correction, multilevel fusion/laminectomy T10-S1. The patient encountered dural erosion that was repaired with a fat patch graft. Intraoperatively, the patient lost approximately 900 cc of blood and the patient is currently completing her second unit of packed RBC. The patient's hemoglobin and follow-up is pending. Noted the patient was weaned off the mechanical ventilator and the patient was extubated in the operating room and currently she is laying down flat on 2 L of oxygen by nasal cannula with pulse ox of 99%. She is a bit lethargic and sleepy. Hemodynamically stable on no pressors. She is going to be placed on lactated Ringer at rate of 100 cc an hour. She is on IV cefazolin. No other significant issues for now. Following commands. No extreme questions. Moving all 4 extremities. Adequate alyson assessment of the lower extremities cannot be done. Adequate pulses lower extremities bilaterally. On 01/20/2024, patient is postop day #1. The patient is doing well. Awake and alert and communicating. No issues with pain. CAT scan of the thoracic and lumbar spine was done and showed postsurgical vertebral fixation changes T10-S1. The patient is currently, comfortable on room air oxygen with a pulse ox of 96%. Using incentive spirometer. The white cell count is 17 with a hemoglobin of 10.6. Output from the Hemovac is minimal at this point in time. BUN is 18 with a creatinine of 0.6 and a sodium levels at 132. No reported headaches. Tolerating diet. The patient was able to sit up per orthopedic surgery recommendations. The patient will moved out of the intensive care unit for now. On 01/21/2024, the patient is resting comfortably on a chair. Hemovac is produced around 90 cc and there is no evidence of any active bleeding. Pain is under adequate control and the patient is taking [place] for pain control. No significant neurological deficits in the lower extremity the patient continues to have weakness. Unable to ambulate yet. No nausea. No emesis. No chest pain. No headaches. Room air pulse ox is 95%. No other significant events overnight. The patient is currently postop day #2 On 01/22/2024, the patient is being seen for a follow-up. The patient is doing well with no specific complaints. Hemovac has been discontinued. She remains weak. She cannot stand up alone and she still needs assistance. Pain is under adequate control. Hemoglobin is at 10 with a white cell count of 11.8, platelet count is at 143, sodium is at 131, BUN is 11 with a creatinine of 0.57. The patient is postop day #3. Objective - Vital Signs Vital signs: Vital Signs Temp 98 F 01/22/24 08:00 Pulse 77 01/22/24 08:00 Resp 21 01/22/24 08:00 BP 132/82 01/22/24 08:00 Pulse Ox 96 01/22/24 08:00 FiO2 Intake & Output 01/21/24 01/22/24 01/22/24 18:59 06:59 18:59 Intake Total 2060 300 Output Total 1260 1240 Balance 800 -940 Weight 64.7 kg Intake: IV 1100 300 Lactated Ringers 1,000 ml 1100 300 @ 100 mls/hr IV .Q10H [facility] Rx#:[id number] Oral 650 Blood Product 310 Rc As-1 Unit 310 [id number] Output: Drainage 530 40 Back 530 40 Urine 730 1200 Other: Voiding Method Indwelling Catheter Indwelling Catheter ABP, PAP, CO, CI - Last Documented Arterial Blood Pressure 133/41 - Exam The patient appeared well nourished and normally developed. Vital signs as documented. The patient is on room air oxygen Head exam is unremarkable. No scleral icterus or corneal arcus noted. Neck is without jugular venous distension, thyromegaly, or carotid bruits. Carotid upstrokes are brisk bilaterally. Right IJ tripple lumen Lungs are clear to auscultation and percussion. Cardiac exam reveals the PMI to be normally sized and situated. Rhythm is regular. First and second heart sounds normal. No murmurs, rubs or gallops. Abdominal exam reveals normal bowel sounds, no masses, no organomegaly and no aortic enlargement. Extremities are nonedematous and both femoral and pedal pulses are normal. Examination of the skin revealed no evidence of significant rashes, suspicious appearing nevi or other concerning lesions. Hemovac has been removed Neurologically, the patient is awake and alert and the patient does not have any focal neurological deficit. Cranial nerves are essentially intact. . - Labs CBC & Chem 7: 01/22/24 10:09 01/22/24 10:09 Labs: Abnormal Lab Results - Last 24 Hours (Table) 01/21/24 01/21/24 01/22/24 Range/Units 10:29 10:29 10:09 WBC 14.4 H 11.8 H (3.8-10.6) k/uL RBC 3.02 L 3.13 L (3.80-5.40) m/uL Hgb 9.9 L 10.0 L (11.4-16.0) gm/dL Hct 29.0 L 29.7 L (34.0-46.0) % RDW 17.0 H 16.7 H (11.5-15.5) % Plt Count 119 L 143 L (150-450) k/uL Neutrophils # 12.6 H 10.4 H (1.3-7.7) k/uL Lymphocytes # 0.7 L 0.6 L (1.0-4.8) k/uL Sodium 127 L (137-145) mmol/L Calcium 7.5 L (8.4-10.2) mg/dL Assessment and Plan Plan: T10-S1, and the multilevel decompression and fusion , post op day #3. Surgery was complicated by blood loss and dural tear and the patient received a total of 2 units of packed RBC and the patient also received a patch graft to the dural tear. Currently hemodynamically stable. Extubated and the patient is currently on room air oxygen. Pain is under adequate control. CAT scan of the thoracic and lumbar spine was reviewed and shows essentially postsurgical changes. Output from the Hemovac is noted and the drain will be kept in place no headaches. No altered mentation. Chronic lower back pain, neurologic claudication. The patient has lumbar degenerative scoliosis there was severe with coronal and sagittal deformity and neurogenic claudication and lumbar stenosis severe at the level of L1-S1 complicated by chronic back pain, lower extremity weakness and radiculopathy. At this point in time, the motor evaluation in the lower extremities are 4 out of 5 with adequate vascular supply and adequate pulses and capillary refills. Hypertension Degenerative arthritis Hypothyroidism Cervical cancer Plan Titrate oxygen flow to maintain saturation above 90%, currently on room air oxygen Dilaudid for pain control in combination with Flexeril Lexapro Synthroid Hemovac has been removed Increase mobility as tolerated Back brace Will transfer this patient out of the intensive care unit.
[2024-01-22] MEDS: LISINOPRIL-HCTZ 10-12.5 MG 1 EACH TAB PO SCH (13:08)
[2024-01-22 15:32] LABS: ABG Base Excess 2.7 mmol/L; ABG HCO3 26 mmol/L (21-25); ABG Oxygen Saturation 96.8 % (94-97); ABG PCO2 36 mmHg (35-45); ABG PH 7.47 (7.35-7.45); ABG PO2 76 mmHg (83-108); ABG TCO2 28 mmol/L (19-24); Allen Test Performed? Yes
--- NOTE | 2024-01-22 16:21 | CT ---
EXAMINATION TYPE: CT brain wo con DATE OF EXAM: 01/22/2024 4:03 PM COMPARISON: None. CLINICAL INDICATION: Female, 73 years old with history of confusion, hallucinations post spinal surge ry, confusion, hallucinations post spinal surgery TECHNIQUE: Brain: Axial CT images of the brain were obtained with coronal and sagittal reformats created and rev iewed. Contrast used: None. Oral contrast used: None. CT DLP: 1138.4 mGycm, Automated exposure control for dose reduction was used. FINDINGS: Brain: Extra-axial spaces: No abnormal extra-axial fluid collections. Ventricular system: Dilatation in proportion to cerebral atrophy. Cerebral parenchyma: Cerebral atrophy. No acute intraparenchymal hemorrhage or mass effect. The sanchez -white junction is well differentiated. Scattered hypoattenuating areas are seen within the white mat ter. Cerebellum: Unremarkable. Mass effect: No evidence of midline shift. Intracranial vasculature: unremarkable Soft tissues: Normal. Calvarium/osseous structures: No depressed skull fracture. Paranasal sinuses and mastoid air cells: Mild scattered paranasal sinus disease. Visualized orbits: Orbital contents are intact. IMPRESSION: 1. No acute intracranial process. 2. Nonspecific white matter changes, likely secondary to chronic small vessel ischemic disease. [facility], , 01/22/2024 4:19 PM
[2024-01-22 18:31] LABS: Appearance,Urine Clear (Clear); Bilirubin,Urine Negative (Negative); Blood,Urine Trace (Negative); Color,Urine Colorless; Glucose,Urine (UA) Negative (Negative); Ketones,Urine Negative (Negative); Leukocyte Esterase,Urine Negative (Negative); Nitrite,Urine Negative (Negative); PH, Urine 7.5 (5.0-8.0); Protein,Urine Negative (Negative); RBC,Urine 5 /hpf (0-5); Specific Gravity,Urine 1.008 (1.001-1.035); Squamous Epithelial Cell,Urine <1 /hpf (0-4); Urobilinogen,Urine <2.0 mg/dL (<2.0); WBC,Urine 1 /hpf (0-5)
--- NOTE | 2024-01-23 01:23 | P.PN ---
Subjective Progress Note Date: 01/22/24 73-year-old female patient, post extensive spine surgery for lumbar degenerative scoliosis and neurogenic claudication along with lumbar stenosis that was severe at the level of L1 S1 along with chronic back pain and lower extremity weakness and radiculopathy. The patient underwent osteotomy with multilevel deformity correction, multilevel fusion/laminectomy T10-S1. The patient encountered dural erosion that was repaired with a fat patch graft. Intraoperatively, the patient lost approximately 900 cc of blood and the patient is currently completing her second unit of packed RBC. The patient's hemoglobin and follow-up is pending. Noted the patient was weaned off the mechanical ventilator and the patient was extubated in the operating room and currently she is laying down flat on 2 L of oxygen by nasal cannula with pulse ox of 99%. --Patient is POD#2 01/22/2024 Patient is seen and evaluated and selective care unit and discussed with nursing staff; concerned about new onset confusion; patient underwent surgery and is POD #3; has been transferred out of ICU Vital signs are reviewed We will order stat ABG and ammonia level; order CT of the head without contrast -Consult neurology Objective - Vital Signs Vital signs: Vital Signs Temp 98 F 01/22/24 08:00 Pulse 77 01/22/24 08:00 Resp 21 01/22/24 08:00 BP 132/82 01/22/24 08:00 Pulse Ox 96 01/22/24 08:00 FiO2 Intake & Output 01/21/24 01/22/24 01/22/24 18:59 06:59 18:59 Intake Total 2060 300 Output Total 1260 1240 Balance 800 -940 Weight 64.7 kg Intake: IV 1100 300 Lactated Ringers 1,000 ml 1100 300 @ 100 mls/hr IV .Q10H [facility] Rx#:[id number] Oral 650 Blood Product 310 Rc As-1 Unit 310 [id number] Output: Drainage 530 40 Back 530 40 Urine 730 1200 Other: Voiding Method Indwelling Catheter Indwelling Catheter ABP, PAP, CO, CI - Last Documented Arterial Blood Pressure 133/41 - Exam The patient appeared well nourished and normally developed. Vital signs as documented. Head exam is unremarkable. No scleral icterus or corneal arcus noted. Neck is without jugular venous distension, thyromegaly, or carotid bruits. Carotid upstrokes are brisk bilaterally. Right IJ tripple lumen Lungs are clear to auscultation and percussion. Cardiac exam reveals the PMI to be normally sized and situated. Rhythm is regular. First and second heart sounds normal. No murmurs, rubs or gallops. Abdominal exam reveals normal bowel sounds, no masses, no organomegaly and no aortic enlargement. Extremities are nonedematous and both femoral and pedal pulses are normal. Examination of the skin revealed no evidence of significant rashes, suspicious appearing nevi or other concerning lesions. Hemovac in the back Neurologically, the patient is awake and alert and the patient does not have any focal neurological deficit. Cranial nerves are essentially intact. The patient is currently on 2 L of oxygen by nasal cannula. - Labs CBC & Chem 7: 01/22/24 10:09 01/22/24 10:09 Labs: Abnormal Lab Results - Last 24 Hours (Table) 01/21/24 01/21/24 Range/Units 10:29 10:29 WBC 14.4 H (3.8-10.6) k/uL RBC 3.02 L (3.80-5.40) m/uL Hgb 9.9 L (11.4-16.0) gm/dL Hct 29.0 L (34.0-46.0) % RDW 17.0 H (11.5-15.5) % Plt Count 119 L (150-450) k/uL Neutrophils # 12.6 H (1.3-7.7) k/uL Lymphocytes # 0.7 L (1.0-4.8) k/uL Sodium 127 L (137-145) mmol/L Calcium 7.5 L (8.4-10.2) mg/dL Assessment and Plan Assessment: T10-S1, and the multilevel decompression and fusion , post op day #0. Surgery was complicated by blood loss and dural tear and the patient received a total of 2 units of packed RBC and the patient also received a patch graft to the dural tear. Currently hemodynamically stable. Extubated on 2 L of oxygen by nasal cannula Chronic lower back pain, neurologic claudication Hypertension Degenerative arthritis Hypothyroidism Cervical cancer -- Patient remains in ICU; currently on IV fluids in form of lactated Ringer at 100 cc an hour -- Saturating above 90% on O2 at 2 L per nasal cannula -- Continue with current dose of Dilaudid and Flexeril for pain control -Home medications reviewed; levothyroxine 100 mcg daily, lisinopril/hydrochlorothiazide 10-12.5 mg daily
[2024-01-23] MEDS: ENOXAPARIN 40 MG/0.4 ML SYRINGE SQ SCH (09:17)
--- NOTE | 2024-01-23 11:14 | P.PN ---
Subjective Progress Note Date: 01/23/24 Principal diagnosis: 1. 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 NEUROGENIC CLAUDICATION 3. LUMBAR STENOSIS, SEVERE L1-S1 4. LOW BACK PAIN 5. LE WEAKNESS 6. LE RADICULOPATHY Patient was seen at bedside this morning lying in the semirecumbent position in 3S with dressing present over thoracolumbar spine and Yee/catheter in place. Patient says overall she is feeling pretty well since surgery. Oral medication has been helping control pain somewhat. She says she is using incentive spirometer every hour and trying to perform gentle range of motion exercises while resting in bed. Patient denies any other significant issues at this time. Objective - Vital Signs Vital signs: Vital Signs Temp 98.1 F 01/23/24 09:06 Pulse 78 01/23/24 09:07 Resp 18 01/23/24 09:06 BP 163/82 01/23/24 09:06 Pulse Ox 96 01/23/24 09:06 FiO2 Intake & Output 01/22/24 01/23/24 01/23/24 18:59 06:59 18:59 Intake Total 540 150 Output Total 1400 1000 Balance -860 -1000 150 Weight 64.3 kg Intake: Oral 540 150 Output: Urine 1400 1000 Other: Voiding Method Indwelling Catheter Indwelling Catheter Indwelling Catheter # Bowel Movements 1 1 1 ABP, PAP, CO, CI - Last Documented Arterial Blood Pressure 133/41 - Exam Inspection: Dressing is present over thoracolumbar spine. Dressing changed at bedside this morning. New dressing placed over incision. Some minor saturation over dressing. Sensation: Equal, symmetric, bilat intact throughout extremities on exam. Palpation: Fair amount of tenderness to palpation diffusely throughout the spine at midline near incision. NTTP throughout rest of exam Range of motion: Patient does have limited range of motion in bilateral lower extremities on exam secondary to recent surgery and referred stiffness and pain to the low back. Motor: 5/5 in all major motor groups in bilateral upper extremities. 4/5 in bilateral hips in flexion. 4/5 in bilateral knee extension and flexion. 4-/5 in plantarflexion in the right lower extremity. 4/5 in plantarflexion of left lower extremity. 3/5 in left ankle dorsi flexion. 4/5 in right ankle dorsiflexion. EHL and FHL 4/5 bilaterally Neurovascular: Radial pulse intact bilaterally. DP pulses palpable bilaterally. Cap refill under 3 seconds in digits of upper extremities. Special test: Negative Homans bilaterally. Negative clonus bilaterally. Negative Nelda bilaterally. - Labs CBC & Chem 7: 01/22/24 10:09 01/22/24 10:09 Labs: Abnormal Lab Results - Last 24 Hours (Table) 01/22/24 01/22/24 Range/Units 15:28 17:50 ABG pH 7.47 H (7.35-7.45) ABG pO2 76 L (83-108) mmHg ABG HCO3 26 H (21-25) mmol/L ABG Total CO2 28 H (19-24) mmol/L Hemoglobin 9.9 L (11.4-16.0) gm/dL Urine Blood Trace H (Negative) Assessment and Plan Assessment: 1. 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 NEUROGENIC CLAUDICATION 3. LUMBAR STENOSIS, SEVERE L1-S1 4. LOW BACK PAIN 5. LE WEAKNESS 6. LE RADICULOPATHY Postop day 4 status post [id number] decompression and fusion Plan: 1. LUMBAR DEGENERATIVE SCOLIOSIS SEVERE CORONAL AND SAGITTAL DEFORMITY; NEUROGENIC CLAUDICATION; LUMBAR STENOSIS, SEVERE L1-S1; LOW BACK PAIN; LE WEAKNESS; LE RADICULOPATHY -surgery performed , 01/19/[id number] decompression and fusion. Dressing in place over thoracolumbar spine. Dressing changed at bedside this morning. Nursing to remove Yee/catheter. assess dressing daily. We will continue to follow patient during stay in hospital. Pending continued improvement in stable labs/vitals, plan for discharge home with home care tomorrow versus Tuesday 2. Appreciate medical management 3. Pain management -[place]; Flexeril; gabapentin 4. DVT prophylaxis - mechanical 5. GI prophylaxis - senna; milk of mag 6. PT/OT -encourage ambulation: Patient encouraged to perform gentle range of motion exercises while resting in bed 7. Encourage incentive spirometer use 8. Discharge planning -plan for discharge home with home care tomorrow versus Tuesday Time with Patient: Less than 30
--- NOTE | 2024-01-23 23:18 | PN ---
PROGRESS NOTE DATE OF SERVICE: 01/23/2024 SUBJECTIVE: This is a 73-year-old woman, who was admitted with chronic low back pain as well as hallucinations secondary to pain medications. No chest pain. No palpitation. OBJECTIVE: VITAL SIGNS: Pulse is 77, blood pressure 140/70, respirations 18. CHEST: Clear to auscultation. CARDIOVASCULAR: S1, S2. ABDOMEN: Soft. NERVOUS SYSTEM: Nonfocal. LABORATORY DATA: Reviewed. ASSESSMENT: 1. Status post C10-C7 multilevel decompression and fusion. 2. Hypertension. 3. Degenerative joint disease. 4. Hypothyroidism. RECOMMENDATIONS: Recommend to continue current medications, continue symptomatic treatment. Continue with pain management. Rest of the recommendations per Surgery. MMODL / IJN: [id number] /
[2024-01-24 04:32] LABS: Glucose,Whole Blood 108 mg/dL (70-110)
[2024-01-24 07:38] LABS: Anisocytosis Slight; Basophils % (A) 0 %; Eosinophils # (A) 0.4 k/uL (0-0.7); Eosinophils % (A) 5 %; HCT 29.3 % (34.0-46.0); HGB 9.6 gm/dL (11.4-16.0); Lymphocytes # (A) 0.6 k/uL (1.0-4.8); Lymphocytes % (A) 8 %; MCH 30.6 pg (25.0-35.0); MCHC 32.9 g/dL (31.0-37.0); MCV 93.2 fL (80.0-100.0); Mean Platelet Volume 8.7; Monocytes # (A) 0.8 k/uL (0-1.0); Monocytes % (A) 10 %; Neutrophils # (A) 5.8 k/uL (1.3-7.7); Neutrophils % (A) 76 %; Platelet Count 262 k/uL (150-450); RBC 3.14 m/uL (3.80-5.40); RDW 16.8 % (11.5-15.5); WBC 7.7 k/uL (3.8-10.6)
[2024-01-24 07:58] LABS: ALT 23 U/L (4-34); AST 41 U/L (14-36); African American GFR (CKD) >90 (>60 ml/min/1.73 sqM); Albumin 2.7 g/dL (3.5-5.0); Alkaline Phosphatase 69 U/L (38-126); Anion Gap 4 mmol/L; Blood Urea Nitrogen 10 mg/dL (7-17); Calcium 8.3 mg/dL (8.4-10.2); Carbon Dioxide 27 mmol/L (22-30); Chloride 100 mmol/L (98-107); Glucose 97 mg/dL (74-99); Magnesium 1.8 mg/dL (1.6-2.3); Non-African American GFR(CKD) 90 (>60 ml/min/1.73 sqM); Potassium 3.2 mmol/L (3.5-5.1); Sodium 131 mmol/L (137-145); Total Bilirubin 0.6 mg/dL (0.2-1.3)
[2024-01-24] MEDS ORDERED: Potassium Replacement Protocol 1 EACH MISC MISCELLANE PRN ×2 (09:01→14:51)
--- NOTE | 2024-01-24 09:10 | P.CNNES ---
History of Present Illness Consult date: 01/23/24 Requesting physician: Masha Rodríguez Reason for Consult: AMS post spinal decompression/fusion History of Present Illness: Patient is a 73-year-old right-handed female came to the hospital for elective lumbar surgery on 01/19/2024. Patient underwent T10-S1 and multilevel decompression and fusion. Surgery was complicated by blood loss and dural tear and the patient received a total of 2 units of packed RBC the patient also received a patch graft to the dural tear. Patient's surgery went uncomplicated, however yesterday patient developed acute confusional state, with some hallucinations and delusions. Patient states that she started having bad vivid dreams which were scary, and felt very real to her. Patient states that it involves around the hospital, as if she was leaving the hospital coming back to the hospital and it was very scary, did not know what was happening. An example she gave was that she felt she was going to bonfire with her brother and she was talking to him and then went on a canoeing trip and bad things were happening during the trip of canoeing. Patient believes that symptoms were worse at night, last night. Today she is much better. Patient states that she has not had a good sleep for last few days since she had back surgery. She was also getting a lot of pain medications including opiates and Neurontin, which likely triggered this delirium. The nurse reported that symptoms started yesterday afternoon while she was receiving all these pain medications. The nurse reported that she has been oriented, but sometimes was confused, as thinking she was at home otherwise she knew that she was in the hospital. However today she is much improved. All opiates have been discontinued she is just on Tylenol. Patient denies any focal symptoms otherwise. Patient's vitals has been stable. Blood pressure is normal. Temperature is normal. Blood test shows WBC 11.8 hemoglobin 10.0, platelets 143. Sodium 131 potassium 3.6, normal renal functions. Ammonia is less than 9. UA negative. Patient is currently receiving Lexapro 5 mg, gabapentin 3 mg 3 times daily, [place] 10 and [place] 5, and Dilaudid. Patient also was started on Neurontin. Patient states that she has history of low back pain since 2006 but she has just kept putting it off but it was not too bad. Patient denies any tobacco use. She sometimes drinks alcohol very little. Review of Systems All pertinent positive and negative review of systems mentioned in the HPI. Otherwise unremarkable. Does have back pain. Past Medical History Past Medical History: Cancer, GERD/Reflux, Hypertension, Osteoarthritis (OA), S kin Disorder, Thyroid Disorder Additional Past Medical History / Comment(s): SEASONAL ALLERGIES. lower back pain collapsed disc x3, hx cervical cancer. scratch to rt ankle area is a little red and sore. pt has soaked it daily but it has not scabbed over. has been applying neosporin daily. stopped today.pt to let Dr Rahman know today. History of Any Multi-Drug Resistant Organisms: None Reported Date of last positivie culture/infection: 01/12/24 MDRO Source:: nasal Past Surgical History: Section, Hysterectomy Additional Past Surgical History / Comment(s): CATARACTS BILATERAL, cold knife conization Past Anesthesia/Blood Transfusion Reactions: No Reported Reaction Smoking Status: Former smoker - Past Family History Father Family Medical History: Coronary Artery Disease (CAD) Mother Family Medical History: Cancer Additional Family Medical History / Comment(s): lung cancer Brother(s) Family Medical History: CVA/TIA Medications and Allergies Home Medications Medication Instructions Recorded Confirmed Type Fexofenadine/Pseudoephedrine 1 tab PO DAILY PRN 10/29/14 01/19/24 History [Melanie-D 12 Hour Tablet] Levothyroxine Sodium [Synthroid] 100 mcg PO QAM 10/29/14 01/19/24 History Lisinopril/Hydrochlorothiazide 1 tab PO QAM 10/29/14 01/19/24 History [Lisinopril-Hctz 10-12.5 mg Tab] Bend-3 Fatty Acids/Fish Oil [Fish 1 cap PO DAILY 10/29/14 01/19/24 History Oil 1,000 mg Softgel] Naproxen Sodium [Aleve] 220 mg PO BID 10/30/21 01/19/24 History Cholecalciferol [Vitamin D3 (25 50 mcg PO DAILY 01/16/24 01/19/24 History Mcg = 1000 Iu)] Escitalopram [Lexapro] 5 mg PO DAILY 01/16/24 01/19/24 History Esomeprazole Magnesium [NexIUM] 40 mg PO DAILY 01/16/24 01/19/24 History Folic Acid 1 mg PO DAILY 01/16/24 01/19/24 History Ibandronate Sodium [Boniva] 150 mg PO QMONTHLY 01/16/24 01/19/24 History metHOTREXate sodium [Methotrexate] 7.5 mg PO TU 01/16/24 01/19/24 History Allergies Allergy/AdvReac Type Severity Reaction Status Date / Time No Known Allergies Allergy Verified 01/19/24 06:14 Physical Examination - Vital Signs Vital Signs: Vital Signs Temp Pulse Resp BP Pulse Ox 01/23/24 15:22 98.2 F 69 18 181/80 98 01/23/24 11:07 97.8 F 77 18 144/74 96 01/23/24 09:07 78 01/23/24 09:06 98.1 F 78 18 163/82 96 01/23/24 03:21 98.5 F 85 18 153/73 95 01/22/24 23:36 98.1 F 83 16 168/82 94 L 01/22/24 19:46 98.3 F 84 16 131/60 95 Intake and Output 01/23/24 01/23/24 01/23/24 06:59 14:59 22:59 Intake Total 350 118 Output Total 1000 Balance -1000 350 118 Intake: Oral 350 118 Output: Urine 1000 Other: Voiding Method Indwelling Catheter Toilet # Voids 1 1 # Bowel Movements 1 Weight 64.3 kg Patient is an elderly female, very pleasant, in no acute distress. Patient is alert awake oriented to time place and person. Patient knows it is January 2024 and that she is in [facility] imported on [facility] and knows name of the current president Mr. Rendon. Speech and language functions are normal. Patient can name and repeat very well. No aphasia or dysarthria. Attention, concentration and fund of knowledge is adequate. On cranial nerve examination, pupils are equal, round and reacting to light, visual reilly are full on confrontation, with no neglect on double simultaneous stimulation. Extraocular muscles are intact with no nystagmus. Face is symmetric, tongue protrudes to the midline. Palatal elevation and sensation normal, hearing and shoulder shrug normal, facial sensation normal. On muscle strength testing, there is no pronator drift and the strength is normal in arms and legs distally and proximally, except right shoulder which is weak about 4+ from probable some arthritic issue and is chronic in nature. Deep tendon reflexes are symmetric 1 at the biceps, 1 brachioradialis, 1+ at the knees, 1 ankles and plantars downgoing. Sensory to touch is equal with no neglect on double simultaneous stimulation. Cerebellar function showed no ataxia for [id number] testing. No dysdiadochokinesia. No ataxia for [id number] testing on either side. Tone and bulk of muscles normal. Gait deferred.. On general examination, there is no carotid bruit or murmur, S1-S2 audible. Chest is clear on consultation. Abdomen is soft nontender. No organomegaly, bowel sounds present. Peripheral pulses are present. No peripheral edema. Results - Laboratory Findings CBC and BMP: 01/24/24 07:15 01/24/24 07:15 Abnormal Lab Findings: Abnormal Labs 01/12/24 01/19/24 01/19/24 10:46 08:30 08:40 WBC RBC 3.38 L Hgb 11.3 L Hct 32.5 L RDW Plt Count Neutrophils # Lymphocytes # ABG pH 7.47 H ABG pCO2 32 L ABG pO2 387 H ABG HCO3 ABG Total CO2 ABG O2 Saturation 99.2 H ABG Hematocrit 31 L ABG Potassium ABG Ionized Calcium ABG Glucose 114 H Hemoglobin 10.2 L Sodium BUN Glucose POC Glucose (mg/dL) Calcium AST Total Protein Albumin Arterial Blood Potassium Arterial Blood Glucose 114 H Urine Blood Crossmatch See Detail 01/19/24 01/19/24 01/19/24 13:30 16:22 18:15 WBC 16.9 H RBC 3.68 L Hgb Hct RDW 16.6 H Plt Count 137 L Neutrophils # 15.7 H Lymphocytes # 0.4 L ABG pH ABG pCO2 ABG pO2 271 H ABG HCO3 20 L ABG Total CO2 ABG O2 Saturation 99.2 H ABG Hematocrit 22 L ABG Potassium 3.1 L ABG Ionized Calcium 4.2 L ABG Glucose 120 H Hemoglobin 7.1 L Sodium BUN Glucose POC Glucose (mg/dL) 148 H Calcium AST Total Protein Albumin Arterial Blood Potassium 3.1 L Arterial Blood Glucose 120 H Urine Blood Crossmatch 01/19/24 01/20/24 01/20/24 18:15 05:08 05:08 WBC 17.0 H RBC 3.37 L Hgb 10.6 L Hct 31.1 L RDW 17.5 H Plt Count 117 L Neutrophils # 15.3 H Lymphocytes # 0.7 L ABG pH ABG pCO2 ABG pO2 ABG HCO3 ABG Total CO2 ABG O2 Saturation ABG Hematocrit ABG Potassium ABG Ionized Calcium ABG Glucose Hemoglobin Sodium 134 L 132 L BUN 18 H Glucose 140 H 112 H POC Glucose (mg/dL) Calcium 7.8 L 7.6 L AST 52 H Total Protein 5.1 L Albumin 3.1 L Arterial Blood Potassium Arterial Blood Glucose Urine Blood Crossmatch 01/20/24 01/21/24 01/21/24 05:08 10:29 10:29 WBC 14.4 H RBC 3.02 L Hgb 9.9 L Hct 29.0 L RDW 17.0 H Plt Count 119 L Neutrophils # 12.6 H Lymphocytes # 0.7 L ABG pH ABG pCO2 ABG pO2 ABG HCO3 ABG Total CO2 ABG O2 Saturation ABG Hematocrit ABG Potassium ABG Ionized Calcium ABG Glucose Hemoglobin Sodium 127 L BUN Glucose POC Glucose (mg/dL) 127 H Calcium 7.5 L AST Total Protein Albumin Arterial Blood Potassium Arterial Blood Glucose Urine Blood Crossmatch 01/22/24 01/22/24 01/22/24 10:09 10:09 15:28 WBC 11.8 H RBC 3.13 L Hgb 10.0 L Hct 29.7 L RDW 16.7 H Plt Count 143 L Neutrophils # 10.4 H Lymphocytes # 0.6 L ABG pH 7.47 H ABG pCO2 ABG pO2 76 L ABG HCO3 26 H ABG Total CO2 28 H ABG O2 Saturation ABG Hematocrit ABG Potassium ABG Ionized Calcium ABG Glucose Hemoglobin 9.9 L Sodium 131 L BUN Glucose POC Glucose (mg/dL) Calcium 7.9 L AST Total Protein Albumin Arterial Blood Potassium Arterial Blood Glucose Urine Blood Crossmatch 01/22/24 17:50 WBC RBC Hgb Hct RDW Plt Count Neutrophils # Lymphocytes # ABG pH ABG pCO2 ABG pO2 ABG HCO3 ABG Total CO2 ABG O2 Saturation ABG Hematocrit ABG Potassium ABG Ionized Calcium ABG Glucose Hemoglobin Sodium BUN Glucose POC Glucose (mg/dL) Calcium AST Total Protein Albumin Arterial Blood Potassium Arterial Blood Glucose Urine Blood Trace H Crossmatch Assessment and Plan Assessment: * Altered mental status, likely due to acute delirium from metabolic encephalopathy. This likely resulted from combination of lack of sleep, pain medications and electrolyte imbalance. * Hyponatremia * Hypokalemia * Anemia * Hypothyroidism * Status post back surgery with T10-S1 and multilevel decompression and fusion 01/19/2024. Surgery was complicated by blood loss and dural tear and the patient received a total of 2 units of packed RBC the patient also received a patch graft to the dural tear. * History of chronic back pain with scoliosis, neurogenic claudication spinal stenosis, severe L1-S1. Plan: * Agree with stopping all opiates, and Neurontin. Patient only on Tylenol. Her mentation has much improved. Hallucinations have resolved. * Continue present management. * For treatment of hyponatremia and hypokalemia as per IM. * Check B12, folate, TSH. * Neurology will follow clinically. * Thank you for the consult.
[2024-01-24] MEDS: POTASSIUM CHLORIDE ER 20 MEQ TAB.ER PO SCH (11:16)
[2024-01-24] MEDS: SODIUM CHLORIDE 0.9% 500 ML 500 ML IV ONE (11:24)
--- NOTE | 2024-01-24 12:06 | P.PN ---
Subjective Progress Note Date: 01/24/24 Principal diagnosis: 1. 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 NEUROGENIC CLAUDICATION 3. LUMBAR STENOSIS, SEVERE L1-S1 4. LOW BACK PAIN 5. LE WEAKNESS 6. LE RADICULOPATHY Patient was seen at bedside this morning lying in the semirecumbent position in 3S with dressing present over thoracolumbar spine. Patient says overall she is feeling pretty well since surgery. Patient says she has urinated without issue since Yee/catheter was removed yesterday. Neurology did see patient yesterday and is recommending patient to be withheld from any opiates due to mental fog. Patient says Tylenol is not helping control pain very much. She says she is using incentive spirometer every hour and trying to perform gentle range of motion exercises while resting in bed. Patient denies any other significant issues at this time. Objective - Vital Signs Vital signs: Vital Signs Temp 98.1 F 01/24/24 07:51 Pulse 74 01/24/24 08:13 Resp 18 01/24/24 08:13 BP 160/79 01/24/24 08:13 Pulse Ox 96 01/24/24 08:13 FiO2 Intake & Output 01/23/24 01/24/24 01/24/24 18:59 06:59 18:59 Intake Total 468 830 Balance 468 830 Weight 61.5 kg Intake: Oral 468 830 Other: Voiding Method Toilet Toilet Toilet # Voids 1 2 1 # Bowel Movements 1 ABP, PAP, CO, CI - Last Documented Arterial Blood Pressure 133/41 - Exam Inspection: Dressing is present over thoracolumbar spine. Dressing appears to be clean, dry, intact. Sensation: Equal, symmetric, bilat intact throughout extremities on exam. Palpation: Fair amount of tenderness to palpation diffusely throughout the spine at midline near incision. NTTP throughout rest of exam Range of motion: Patient does have limited range of motion in bilateral lower extremities on exam secondary to recent surgery and referred stiffness and pain to the low back. Motor: 5/5 in all major motor groups in bilateral upper extremities. 4/5 in bilateral hips in flexion. 4/5 in bilateral knee extension and flexion. 4-/5 in plantarflexion in the right lower extremity. 4/5 in plantarflexion of left lower extremity. 3/5 in left ankle dorsi flexion. 4/5 in right ankle dorsiflexion. EHL and FHL 4/5 bilaterally Neurovascular: Radial pulse intact bilaterally. DP pulses palpable bilaterally. Cap refill under 3 seconds in digits of upper extremities. Special test: Negative Homans bilaterally. Negative clonus bilaterally. Negative Nelda bilaterally. - Labs CBC & Chem 7: 01/24/24 07:15 01/24/24 07:15 Labs: Abnormal Lab Results - Last 24 Hours (Table) 01/24/24 01/24/24 Range/Units 07:15 07:15 RBC 3.14 L (3.80-5.40) m/uL Hgb 9.6 L (11.4-16.0) gm/dL Hct 29.3 L (34.0-46.0) % RDW 16.8 H (11.5-15.5) % Lymphocytes # 0.6 L (1.0-4.8) k/uL Sodium 131 L (137-145) mmol/L Potassium 3.2 L (3.5-5.1) mmol/L Calcium 8.3 L (8.4-10.2) mg/dL AST 41 H (14-36) U/L Total Protein 5.0 L (6.3-8.2) g/dL Albumin 2.7 L (3.5-5.0) g/dL Assessment and Plan Assessment: 1. 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 NEUROGENIC CLAUDICATION 3. LUMBAR STENOSIS, SEVERE L1-S1 4. LOW BACK PAIN 5. LE WEAKNESS 6. LE RADICULOPATHY Postop day 5 status post [id number] decompression and fusion Plan: 1. LUMBAR DEGENERATIVE SCOLIOSIS SEVERE CORONAL AND SAGITTAL DEFORMITY; NEUROGENIC CLAUDICATION; LUMBAR STENOSIS, SEVERE L1-S1; LOW BACK PAIN; LE WEAKNESS; LE RADICULOPATHY -surgery performed , 01/19/[id number] decompression and fusion. Dressing in place over thoracolumbar spine. assess dressing daily. Prescription for TLSO brace was signed. Case management working on this. Continue PT/OT daily. Neurology recommended patient to be discontinued from [place] and gabapentin. Due to the patient's continued pain and only being on Tylenol 650 mg, we will order tramadol 50 mg twice daily to help with pain. Patient is stable for an orthopedic standpoint for discharge from the hospital. Patient does continue to have orthostatic hypotension. Medicine taking over admission and working on this. Patient to follow-up in the outpatient setting with Dr. Rahman. We will defer the rest of the management during patient stay to the primary medical team. Orthopedics will be available as needed to see patient. Please do not hesitate to contact us for any further questions. 2. Appreciate medical management 3. Pain management -Tylenol; tramadol 4. DVT prophylaxis - mechanical 5. GI prophylaxis - senna; milk of mag 6. PT/OT -encourage ambulation: Patient encouraged to perform gentle range of motion exercises while resting in bed 7. Encourage incentive spirometer use 8. Discharge planning -discharge per medicine Time with Patient: Less than 30
[2024-01-24 12:34] LABS: T4, Free (Free Thyroxine) 1.39 ng/dL (0.78-2.19)
[2024-01-24] MEDS: SODIUM CHLORIDE 0.9% 1,000 ML IV SCH (12:34)
[2024-01-24] MEDS ORDERED: ONDANSETRON 4 MG/2 ML VIAL IVP PRN (14:00)
[2024-01-24] MEDS: lisinopriL 10 MG TAB PO STA (16:20)
[2024-01-24] MEDS: KETOROLAC 15 MG/ML 1 ML VIAL IVP PRN (16:26)
[2024-01-24] MEDS: ACETAMINOPHEN TAB 325 MG TAB PO SCH (17:05)
[2024-01-24] MEDS: lisinopriL 10 MG TAB PO SCH (20:21)
--- NOTE | 2024-01-25 03:17 | PN ---
PROGRESS NOTE DATE OF SERVICE: 01/24/2024 SUBJECTIVE: This is a 73-year-old woman, who was admitted after multilevel decompression and fusion. She is also having tiredness, weakness, and orthostatic hypotension. The patient also had hallucination due to medications. The patient is on NSAIDs at this time. PAST MEDICAL HISTORY: Reviewed. REVIEW OF SYSTEMS: A 14-point review of systems is negative except as mentioned earlier. CURRENT MEDICATIONS: Reviewed. PHYSICAL EXAMINATION: VITAL SIGNS: Pulse is 71, blood pressure 147/83, orthostatic changes noted. HEENT: Conjunctivae normal. NECK: No JVD. CARDIOVASCULAR: S1, S2. RESPIRATIONS: Breath sounds diminished at the bases. A few scattered rhonchi. ABDOMEN: Soft. NERVOUS SYSTEM: Nonfocal. LABORATORY DATA: Reviewed. ASSESSMENT: 1. Status post multilevel decompression and fusion. 2. Hypertension. 3. History of degenerative joint disease. 4. Orthostatic hypotension. 5. Hypothyroidism. RECOMMENDATIONS AND DISCUSSION: Recommend to continue current management and continue symptomatic treatment. Otherwise, at this time, replace potassium. Repeat labs and IV fluids. Monitor blood pressure closely. Initiate lisinopril. Guarded prognosis. Further recommendations to follow. MMODL / IJN: [id number] /
[2024-01-25] MEDS: PANTOPRAZOLE 40 MG TABLET PO SCH (06:14)
[2024-01-25 07:14] LABS: Anisocytosis Slight; Basophils % (A) 1 %; Eosinophils # (A) 0.5 k/uL (0-0.7); Eosinophils % (A) 7 %; HCT 28.6 % (34.0-46.0); HGB 9.4 gm/dL (11.4-16.0); Hypochromasia Slight; Lymphocytes # (A) 0.7 k/uL (1.0-4.8); Lymphocytes % (A) 11 %; MCH 31.8 pg (25.0-35.0); MCHC 32.8 g/dL (31.0-37.0); MCV 96.7 fL (80.0-100.0); Mean Platelet Volume 7.3; Monocytes # (A) 0.7 k/uL (0-1.0); Monocytes % (A) 11 %; Neutrophils # (A) 4.6 k/uL (1.3-7.7); Neutrophils % (A) 68 %; Platelet Count 278 k/uL (150-450); RBC 2.95 m/uL (3.80-5.40); RDW 16.7 % (11.5-15.5); WBC 6.7 k/uL (3.8-10.6)
[2024-01-25 07:31] LABS: ALT 23 U/L (4-34); AST 34 U/L (14-36); African American GFR (CKD) >90 (>60 ml/min/1.73 sqM); Albumin 2.6 g/dL (3.5-5.0); Alkaline Phosphatase 63 U/L (38-126); Anion Gap 5 mmol/L; Blood Urea Nitrogen 8 mg/dL (7-17); Calcium 8.1 mg/dL (8.4-10.2); Carbon Dioxide 23 mmol/L (22-30); Chloride 103 mmol/L (98-107); Glucose 99 mg/dL (74-99); Non-African American GFR(CKD) >90 (>60 ml/min/1.73 sqM); Potassium 3.9 mmol/L (3.5-5.1); Sodium 131 mmol/L (137-145); Total Bilirubin 0.6 mg/dL (0.2-1.3); Total Protein 4.8 g/dL (6.3-8.2)
[2024-01-25] MEDS: CYANOCOBALAMIN 500 MCG TAB PO SCH (08:25)
[2024-01-25] MEDS: CHOLECALCIFEROL 25 MCG (1000 IU) TABLET PO SCH (08:25)
[2024-01-25] MEDS: FOLIC ACID 1 MG TAB PO SCH (08:25)
[2024-01-25] MEDS ORDERED: lisinopriL 10 MG TAB PO SCH (09:00)
[2024-01-25] MEDS: SODIUM CHLORIDE 0.9% 1,000 ML IV SCH (15:13)
[2024-01-25] MEDS: amLODIPine 5 MG TAB PO SCH (15:13)
--- NOTE | 2024-01-26 03:30 | PN ---
PROGRESS NOTE DATE OF SERVICE: 01/25/2024 SUBJECTIVE: This is a 73-year-old woman, who was admitted after multilevel decompressive surgery, had hypertension as well as orthostatic hypotension. The patient was feeling dizzy. The patient was given fluid boluses also. No chest pain. No palpitations. CT scan did not show any acute abnormality. No chest pain. No palpitation. OBJECTIVE: VITAL SIGNS: Pulse is 68, blood pressure 145/74, orthostatic changes to 108/56. CHEST: A few scattered rhonchi and crackles. ABDOMEN: Soft. NERVOUS SYSTEM: No focal deficits. BACK: Status post surgery. LABORATORY DATA: Reviewed. Hemoglobin is 9.4. ASSESSMENT: 1. Status post multilevel decompression and fusion. 2. Severe orthostatic hypotension. 3. Hypertension. 4. History of degenerative joint disease. 5. Hypothyroidism. 6. Multiple medical issues. RECOMMENDATIONS: Recommend to continue current management and continue symptomatic treatment. I would recommend IV fluids, bilateral thigh-high TEDs and add Norvasc to the current regimen. Otherwise, continue to monitor and check a set of troponins. Further recommendations to follow. MMODL / IJN: [id number] /
[2024-01-26 03:42] VITALS: RESP 16
[2024-01-26 07:51] LABS: Anisocytosis Slight; Basophils % (A) 1 %; Eosinophils # (A) 0.4 k/uL (0-0.7); Eosinophils % (A) 5 %; HCT 28.9 % (34.0-46.0); HGB 9.4 gm/dL (11.4-16.0); Lymphocytes # (A) 0.9 k/uL (1.0-4.8); Lymphocytes % (A) 12 %; MCH 31.1 pg (25.0-35.0); MCHC 32.6 g/dL (31.0-37.0); MCV 95.5 fL (80.0-100.0); Mean Platelet Volume 7.5; Monocytes # (A) 0.9 k/uL (0-1.0); Monocytes % (A) 11 %; Neutrophils # (A) 5.3 k/uL (1.3-7.7); Neutrophils % (A) 69 %; Platelet Count 384 k/uL (150-450); RBC 3.03 m/uL (3.80-5.40); RDW 16.5 % (11.5-15.5); WBC 7.7 k/uL (3.8-10.6)
[2024-01-26 08:26] LABS: African American GFR (CKD) >90 (>60 ml/min/1.73 sqM); Anion Gap 2 mmol/L; Blood Urea Nitrogen 7 mg/dL (7-17); Calcium 8.1 mg/dL (8.4-10.2); Carbon Dioxide 28 mmol/L (22-30); Chloride 103 mmol/L (98-107); Glucose 90 mg/dL (74-99); Non-African American GFR(CKD) >90 (>60 ml/min/1.73 sqM); Potassium 3.9 mmol/L (3.5-5.1); Sodium 133 mmol/L (137-145)
[2024-01-26 10:22] VITALS: BP 140/73; PULSE 72; TEMP 97.8
--- NOTE | 2024-01-26 10:57 | P.PN ---
Subjective Progress Note Date: 01/25/24 Patient was seen for a follow-up. Patient is sitting comfortably in the bed. Offers no complaints. No further hallucinations, no confusions. Patient states that she is in the hospital just because her blood pressure has been high and has been labile. They have started new medication for controlling blood pressure. Objective - Vital Signs Vital signs: Vital Signs Temp 99.2 F 01/25/24 19:55 Pulse 70 01/25/24 19:55 Resp 16 01/25/24 19:55 BP 172/82 01/25/24 19:55 Pulse Ox 98 01/25/24 19:55 FiO2 Intake & Output 01/25/24 01/25/24 01/26/24 06:59 18:59 06:59 Intake Total 0 Balance 0 Weight 64.5 kg Intake: Oral 0 Other: Voiding Method Bedside Commode Bedside Commode # Voids 1 1 # Bowel Movements 1 ABP, PAP, CO, CI - Last Documented Arterial Blood Pressure 133/41 - Exam Mental status normal examination completely normal. - Labs CBC & Chem 7: 01/26/24 07:26 01/26/24 07:26 Labs: Abnormal Lab Results - Last 24 Hours (Table) 01/25/24 01/25/24 Range/Units 06:45 06:45 RBC 2.95 L (3.80-5.40) m/uL Hgb 9.4 L (11.4-16.0) gm/dL Hct 28.6 L (34.0-46.0) % RDW 16.7 H (11.5-15.5) % Lymphocytes # 0.7 L (1.0-4.8) k/uL Sodium 131 L (137-145) mmol/L Calcium 8.1 L (8.4-10.2) mg/dL Total Protein 4.8 L (6.3-8.2) g/dL Albumin 2.6 L (3.5-5.0) g/dL Assessment and Plan Assessment: * Altered mental status, likely due to acute delirium from metabolic encephalopathy. This likely resulted from combination of lack of sleep, pain medications and electrolyte imbalance. * Hyponatremia * Hypokalemia * Anemia * Hypothyroidism * Status post back surgery with T10-S1 and multilevel decompression and fusion 01/19/2024. Surgery was complicated by blood loss and dural tear and the patient received a total of 2 units of packed RBC the patient also received a patch graft to the dural tear. * History of chronic back pain with scoliosis, neurogenic claudication spinal stenosis, severe L1-S1. Plan: * Agree with stopping all opiates, and Neurontin. Patient only on Tylenol. Her mentation has much improved. Hallucinations have resolved. * Continue present management. * For treatment of hyponatremia and hypokalemia as per IM. * B12 324, folate 15.0, TSH 8.43, free T41.39. We will defer to IM to address abnormal thyroid functions. Start B12 oral replacement. * Neurology will sign off. Please reconsult if any concerns.
[2024-01-26 11:27] VITALS: BMI 22.4
--- NOTE | 2024-01-27 10:06 | P.DS ---
Providers Date of admission: 01/19/24 05:38 Expected date of discharge: 01/26/24 Attending physician: Leola Almaguer Consults: 01/19/24 14:44 Consult Physician Routine Consulting Provider: Dasha More Consult Reason/Comments: medical management s/p [id number] decompression fusion Do you want consulting provider notified?: Yes 01/22/24 18:02 Consult Physician Routine Consulting Provider: Gage Gutierrez Consult Reason/Comments: AMS post spinal decompression/fusion Do you want consulting provider notified?: Already Contacted Primary care physician: Fco Galan [facility] Course: Final diagnosis Status post multilevel decompression and fusion on 01/19/2024 Severe orthostatic hypotension, likely secondary to mild dehydration and diuretic use, improved History of hypertension History of degenerative joint disease Hypothyroidism History of osteoarthritis History of anxiety GI prophylaxis DVT prophylaxis Full code Discharge disposition Patient is being discharged in a stable condition with guarded prognosis to home with continued home care. Patient will follow-up with Dr. Galan in the outpatient setting upon discharge. Patient is to continue with current blood p ressure medications and outpatient follow-up with primary care provider as well as orthopedics as scheduled. Total time taken is greater than 35 minutes. Hospital course This is a 73-year-old female who was recently admitted under orthopedic services status post decompressive surgery and postoperatively having some issues with blood pressure and medications. Patient was mildly orthostatic and also having some dizziness and generalized weakness. Patient persistent ongoing home with family and having home care and did not want to go to rehab. Patient was monitored after gentle hydration and adjustments to medication and will continue on lisinopril 10 mg twice daily and hold diuretic for now and also has been placed on Norvasc 5 mg daily with improved blood pressure control. Patient has been instructed to monitor blood pressures daily and keep a diary of all readings for primary follow-up. Patient reports to feeling significantly improved and would like to go home. Patient has been cleared by consultations for outpatient follow-up. Please refer to other consultation notes for further HPI. Currently no reports of chest pain, shortness of breath, or palpitations. Patient is afebrile. No reports of nausea or vomiting and patient is tolerating diet. Patient will be discharged home today. Guarded prognosis Physical exam: Gen: This is a 73-year-old female who is awake, alert and oriented x 3, thin built, elderly appearing HEENT: Head is atraumatic, normocephalic. Pupils equal, round. Sclerae is anicteric. NECK: Supple. No JVD. No lymphadenopathy. No thyromegaly. LUNGS: Diminished breath sounds bilaterally otherwise clear to auscultation. No wheezes or rhonchi. No intercostal retractions. HEART: S1, S2 are muffled ABDOMEN: Soft. Thin bowel sounds are present. No masses. No tenderness. EXTREMITIES: No pedal edema. No calf tenderness. NEUROLOGICAL: Patient is awake, alert and oriented x3. Cranial nerves 2 through 12 are grossly intact. Diffusely weak Please refer to medication reconciliation sheet for a list of medications. The impression and plan of care has been dictated by Lilly Dailey, Nurse Practitioner as directed. Dr. Tripp MD I have performed a history and examination and MDM of this patient, discussed the same with the dictator, and agree with the dictator's assessment and plan as written ,documented as a scribe. Based on total visit time, I have performed more than 50% of the visit. Patient Condition at Discharge: Fair Plan - Discharge Summary Discharge Rx Participant: No New Discharge Prescriptions: New Sennosides/Docusate Sodium [Senna Plus 8.6-50 mg Softgel] 1 each PO DAILY #20 capsule traMADol HCL 50 mg PO Q12H #28 tab amLODIPine [Norvasc] 5 mg PO DAILY #30 tab Cyanocobalamin [Vitamin B-12] 1,000 mcg PO DAILY #30 tab lisinopriL [Zestril] 10 mg PO BID #60 tab cefaDROXiL [Duricef] 500 mg PO Q12HR 5 Days #10 cap Acetaminophen Tab [Tylenol] 650 mg PO Q6H #42 tab Magnesium Hydroxide [Milk of Magnesia] 2,400 mg PO DAILY PRN ml PRN Reason: Constipation Continue Lupton-3 Fatty Acids/Fish Oil [Fish Oil 1,000 mg Softgel] 1 cap PO DAILY Levothyroxine Sodium [Synthroid] 100 mcg PO QAM Fexofenadine/Pseudoephedrine [Melanie-D 12 Hour Tablet] 1 tab PO DAILY PRN PRN Reason: Allergy Symptoms Ibandronate Sodium [Boniva] 150 mg PO QMONTHLY Escitalopram [Lexapro] 5 mg PO DAILY metHOTREXate sodium [Methotrexate] 7.5 mg PO TU Esomeprazole Magnesium [NexIUM] 40 mg PO DAILY Folic Acid 1 mg PO DAILY Cholecalciferol [Vitamin D3 (25 Mcg = 1000 Iu)] 50 mcg PO DAILY Discontinued Lisinopril/Hydrochlorothiazide [Lisinopril-Hctz 10-12.5 mg Tab] 1 tab PO QAM Naproxen Sodium [Aleve] 220 mg PO BID Discharge Medication List Fexofenadine/Pseudoephedrine [Melanie-D 12 Hour Tablet] 1 tab PO DAILY PRN 10/29/14 [History] Levothyroxine Sodium [Synthroid] 100 mcg PO QAM 10/29/14 [History] Lupton-3 Fatty Acids/Fish Oil [Fish Oil 1,000 mg Softgel] 1 cap PO DAILY 10/29/14 [History] Cholecalciferol [Vitamin D3 (25 Mcg = 1000 Iu)] 50 mcg PO DAILY 01/16/24 [History] Escitalopram [Lexapro] 5 mg PO DAILY 01/16/24 [History] Esomeprazole Magnesium [NexIUM] 40 mg PO DAILY 01/16/24 [History] Folic Acid 1 mg PO DAILY 01/16/24 [History] Ibandronate Sodium [Boniva] 150 mg PO QMONTHLY 01/16/24 [History] metHOTREXate sodium [Methotrexate] 7.5 mg PO TU 01/16/24 [History] Acetaminophen Tab [Tylenol] 650 mg PO Q6H #42 tab 01/24/24 [Rx] Sennosides/Docusate Sodium [Senna Plus 8.6-50 mg Softgel] 1 each PO DAILY #20 capsule 01/24/24 [Rx] cefaDROXiL [Duricef] 500 mg PO Q12HR 5 Days #10 cap 01/24/24 [Rx] traMADol HCL 50 mg PO Q12H #28 tab 01/24/24 [Rx] Cyanocobalamin [Vitamin B-12] 1,000 mcg PO DAILY #30 tab 01/26/24 [Rx] Magnesium Hydroxide [Milk of Magnesia] 2,400 mg PO DAILY PRN ml 01/26/24 [Rx] amLODIPine [Norvasc] 5 mg PO DAILY #30 tab 01/26/24 [Rx] lisinopriL [Zestril] 10 mg PO BID #60 tab 01/26/24 [Rx] Follow up Appointment(s)/Referral(s): Fco Galan MD [Primary Care Provider] - 02/02/24 3:30 pm (WITH Cordell Gardner DO [Doctor of Osteopathic Medicine] - 02/03/24 10:30 am [facility] Visiting Nurse, [NON-STAFF] - Activity/Diet/Wound Care/Special Instructions: Activity limited until follow-up Follow-up with primary care provider on discharge Continue to monitor blood pressure readings and keep a diary of daily readings f or primary care follow-up Get up slowly at the side of the bed or chair and sit for 2 to 5 minutes prior to getting up and if dizzy continue to sit Continue using incentive spirometer at least 10 times every hour while awake Spine Discharge and Recovery Instructions Date of Surgery: 01/19/2024 Diagnosis: 1. 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 NEUROGENIC CLAUDICATION 3. LUMBAR STENOSIS, SEVERE L1-S1 4. LOW BACK PAIN 5. LE WEAKNESS 6. LE RADICULOPATHY 7. COMPLEX MEDICAL PATIENT Procedure: [id number] decompression and fusion Medications: See medication list All medication refills should be obtained through your primary care doctor or your clinic spine surgeon. Please discuss prescription refills at your follow up appointment. Do not call the hospital for medication refills. Dressing: Leave your dressing in place for a total of 5 days post operatively. Then you may remove your dressing and leave open to air. Keep the area clean and if not able to keep area clean, then cover with sterile gauze and tape. Showering: You may shower 3 days after your procedure allowing soap and water to run over incision. Do not scrub. Do not soak. Blot dry. Follow up: Please confirm a follow up appointment with your surgeon 3 weeks post operatively. Please make an appointment to follow up with your PCP in 1-2 weeks after surgery for evaluation '3 phase, 3-week plan' POST OP WEEKS 1-3 1. Lifting/carrying/pushing/pulling limited to less than 5 pounds. 2. Do not sit for longer than 15 minutes at one time. Get up and walk around. Prolonged sitting is NOT advised. If you lay down, see if you can tolerate laying down on you front (belly side) 3. Walk for periods of 15 minutes = 1 mile but no longer; do it multiple times times each day. 4. Ice your low back after activity. POST OP WEEKS 3-6 1. Lifting limited to less than 20 pounds. 2. Do not sit for longer than 30 minutes at a time. Frequently change positions. Use a sit-to stand workstation or take frequent breaks from sitting if you have returned to work. 3. Walk for 30 minutes each day. If possible, do these three or more times a day POST OP WEEKS 6+ At your 6-week appointment we will give you a physical therapy referral to focus on a core stabilization and strengthening program. You should also work on leg & buttock strengthening, hamstring & quadriceps stretching, and continue a low impact aerobic activity program such as swimming, walking, or riding a stationary bicycle. During the initial 6 weeks after your surgery, you are at the highest risk of re-injuring your spine. You should generally avoid BLT's (bending, lifting and twisting combination motions) and follow the above guidelines to reduce the chance of reinjury. You can anticipate post op appointments in our office at approximately 3 weeks and 6 weeks after your surgery. INCISION CARE: If your incision is not draining you do NOT need to cover it with a dressing. Keep your incision clean, dry and intact. In most cases, we apply skin glue, raphael or sutures to the incision at the time of surgery. This will be like a crust or have the appearance of a scab and will fall off in time on its own. The stitches or raphael need to be removed at 3 weeks post op appointment. You may begin to shower 3 days after surgery (this allows the glue to guan well). However, please avoid scrubbing the incision site or peeling off any of the skin glue. This will ensure optimal healing of your incision. Also, during this time avoid soaking the incision area in water - this includes swimming pools, hot tubs or baths. No ointments, lotions or oils on the incision until your surgeon allows. Leave raphael, sutures or glue in place. Neurological dysfunction that comes on suddenly can also be a sign of a stroke. Below some common symptoms of a stroke are listed: B - balance difficulty such as sudden onset walking or leaning to one side - NEW E - eye problem such as sudden double vision or trouble seeing on one side - NEW F - Facial weakness or numbness on one side - NEW A - Arm or leg weakness or numbness on one side - NEW S - Slurred speech or difficulty with word finding - NEW T - Time is BRAIN! Call 911 as soon as you recognize these symptoms Diet: Consume a regular diet rich in vegetables and lean protein such as chicken or fish. You should consume in a ratio of approximately 20% fats|40% carbohydrates|40%protein. Vegetables, sweet potatoes, brown rice or quinoa are examples of good carbohydrates. Chips, white bread, cookies and sweets/sugar are examples of bad carbohydrates. Limit your bad carbs, go wild with good carbs. "Life's Simple 7" Guidelines as per [employer] These will help you reclaim your life after surgery and kitchen help handyman in your recovery, keeping in mind your restrictions. (1) Get Active. Physical activity can help people lose weight, control high blood pressure and cholesterol, feel emotionally better, and sleep better. (2) Control Cholesterol. Avoid a diet high in saturated fat, trans fat, & cholesterol. Limit whole milk & cream, ice cream, butter, egg yolks, processed meats (like sausage and hot dogs), and fatty meats. Choose healthy foods that are low in saturated fat, trans fat and cholesterol which include: Fruits and vegetables, fiber rich grain products (like whole grain pasta and brown rice), lean meat such as chicken, fish, nuts, seeds, and legumes. (3) Eat Better. Eat small portions. Shop at the grocery with a list and do not stray from it. Tips for a healthy diet include: Limit sodium intake to less than 1500mg daily, avoid prepackaged, processed, and fast foods, choose a diet rich in fruits, vegetables, and whole grain, high fiber foods, and limit saturated & cholesterol in your diet. (4) Manage Blood Pressure. If you have high blood pressure, you should have a cuff at home so that you can check your blood pressure regularly. Be sure you have a good cuff. An arm one is generally better than a wrist one. Bring the cuff to a doctor's appointment to validate that the measurements that your cuff are taking are accurate. Take your blood pressure twice daily when you are sitting down and relaxing. Record the numbers in a log and bring this log with you to your doctors' appointments. (5) Lose Weight if your BMI is above 25. A healthy BMI is between 19-25. To ca lculate Your BMI, you may use a Standard BMI Calculator on the NIH BMI website: <www.nhlbi.nih.gov/guidelines/obesity/BMI/bmicalc.htm>. Weigh oneself daily. If you are overweight, set a goal to lose weight. A pound a week loss if needed is a good target. (6) Reduce Blood Sugar. Limit foods and liquids with "added sugars." (Added sugars include sucrose, fructose, glucose, maltose, dextrose, high fructose corn syrup, corn syrup, concentrated fruit juice and honey). (7) Stop Smoking. If you smoke, quitting smoking is one of the best things that you can do for your health. Smoking increases your risk of heart attack, stroke, and peripheral vascular disease, which is a build-up of plaque in your arteries. Please discard all the cigarettes and lighters in your house. Have a plan for what you will do when you have the urge to smoke. Direct and second- hand smoke shortens your life as well as the lives of your family, friends and others around you. For your health and the health of those around you, please consider quitting! Proper Bending Body Mechanics: Maintain a wide stance with one foot slightly in front of the other. Keep your back straight. Bend utilizing the strength in your hips and knees. Do not bend at the waist. Maintain the lifted object at your waist-level close to your body. Avoid lifting weight that causes immediately pain or pain anywhere in the body afterwards. Smoking/Nicotine If there was ever one thing that you could do to increase your overall health, decrease your risk of cardiovascular problems by about 39% the second you make the choice, it is to STOP SMOKING. Your body's most instant gratification is the second you stop smoking. We have all heard the studies, read the articles but it is true, smoking is extremely bad for your overall health, and moreover it is detrimental to your bone health. Nicotine, IN ANY FORM, kills bone cells, prevents your body from healing fractures, and significantly prolongs healing after surgery. In spine surgery specifically, it increases your risk of not healing your bones to create a fusion and increases your risk of having a revision surgery due to this up to 60%. I know it is hard. I know it feels impossible. But there are ways. Take control of your life. We are here to help you through it. And when you are ready, ask us and we can direct you to help if you desire. Use the START Plan to Quit Smoking (please visit the Helpguide.org website listed below for more information): S = Set a quit date. Choose a date within the next 2 weeks, so you have enough time to prepare without losing your motivation to quit. If you mainly smoke at work, quit on the weekend, so you have a few days to adjust to the change. T = Tell family, friends, and co-workers that you plan to quit. Let your friends and family in on your plan to quit smoking and tell them you need their support and encouragement to stop. Look for a quit jose david who wants to stop smoking as well. You can help each other get through the rough times. A = Anticipate and plan for the challenges you'll face while quitting. Most people who begin smoking again do so within the first 3 months. You can help yourself make it through by preparing ahead for common challenges, such as nicotine withdrawal and cigarette cravings. R = Remove cigarettes and other tobacco products from your home, car, and work. Throw away all your cigarettes (no emergency pack!), lighters, ashtrays, and matches. Wash your clothes and freshen up anything that smells like smoke. Shampoo your car, clean your drapes and carpet, and steam your furniture. T = Talk to your doctor about getting help to quit. Your doctor can prescribe medication to help with withdrawal and suggest other alternatives. If you can't see a doctor, you can get many products over the counter at your local pharmacy or grocery store, including the nicotine patch, nicotine lozenges, and nicotine gum. Resources for Quitting Smoking: <https://www.[place].gov/documents/mdc/Quit_Tobacco_Resources_for_patients_313 480_7.pdf> Supplementation: Take recommended dosages of Vitamin D and Calcium to help fortify your bones and help them to heal. See your health maintenance packet for dosages and recommended levels. DVT/VTE prophylaxis: You will be given compression stockings from the hospital. Wear these daily for the first two weeks after surgery. You may take them off at night. You may be prescribed a medication to help thin your blood. Take this as directed. If you are not prescribed this medication, early and frequent ambulation has been shown to be the best prophylaxis to deep vein thrombosis and sequelae related to this event. Discharge Disposition: HOME WITH HOME HEALTH SERVICES
== END 2024-01-26 15:48 | disposition home health service (06) | DRG 426 ==
LOC: 2ORMAIN 05:38 → 2SICU 15:16 → 3SCARD 01-22 08:42
PROVIDERS: ADMIT Hospitalist; ATTEND Hospitalist
PROC: 0SG1071 Fusion of 2 or more Lumbar Vertebral Joints with Autologous Tissue Substitute, Posterior Approach, Posterior Column, Open Approach (ICD-10-PCS; 2024-01-19)
PROC: 0SG30AJ Fusion of Lumbosacral Joint with Interbody Fusion Device, Posterior Approach, Anterior Column, Open Approach (ICD-10-PCS; 2024-01-19)
PROC: 0SG3071 Fusion of Lumbosacral Joint with Autologous Tissue Substitute, Posterior Approach, Posterior Column, Open Approach (ICD-10-PCS; 2024-01-19)
PROC: 01NB0ZZ Release Lumbar Nerve, Open Approach (ICD-10-PCS; 2024-01-19)
PROC: 01NR0ZZ Release Sacral Nerve, Open Approach (ICD-10-PCS; 2024-01-19)
PROC: 0ST40ZZ Resection of Lumbosacral Disc, Open Approach (ICD-10-PCS; 2024-01-19)
PROC: 0ST20ZZ Resection of Lumbar Vertebral Disc, Open Approach (ICD-10-PCS; 2024-01-19)
PROC: 00UT07Z Supplement Spinal Meninges with Autologous Tissue Substitute, Open Approach (ICD-10-PCS; 2024-01-19)
PROC: 0QS00ZZ Reposition Lumbar Vertebra, Open Approach (ICD-10-PCS; 2024-01-19)
PROC: 0QS10ZZ Reposition Sacrum, Open Approach (ICD-10-PCS; 2024-01-19)
PROC: 0QH304Z Insertion of Internal Fixation Device into Left Pelvic Bone, Open Approach (ICD-10-PCS; 2024-01-19)
PROC: 0QH204Z Insertion of Internal Fixation Device into Right Pelvic Bone, Open Approach (ICD-10-PCS; 2024-01-19)
PROC: 8E0WXBZ Computer Assisted Procedure of Trunk Region (ICD-10-PCS; 2024-01-19)
PROC: 30233N1 Transfusion of Nonautologous Red Blood Cells into Peripheral Vein, Percutaneous Approach (ICD-10-PCS; 2024-01-19)
PROC: 0SG10AJ Fusion of 2 or more Lumbar Vertebral Joints with Interbody Fusion Device, Posterior Approach, Anterior Column, Open Approach (ICD-10-PCS; principal; 2024-01-19 07:30)
DX: M48.062 Spinal stenosis, lumbar region with neurogenic claudication (principal); G93.41 Metabolic encephalopathy; F05 Delirium due to known physiological condition; E87.1 Hypo-osmolality and hyponatremia; M48.56XA Collapsed vertebra, not elsewhere classified, lumbar region, initial encounter for fracture; D62 Acute posthemorrhagic anemia; M41.56 Other secondary scoliosis, lumbar region; I10 Essential (primary) hypertension; E03.9 Hypothyroidism, unspecified; M47.26 Other spondylosis with radiculopathy, lumbar region; M47.27 Other spondylosis with radiculopathy, lumbosacral region; M48.07 Spinal stenosis, lumbosacral region; M25.78 Osteophyte, vertebrae; M51.16 Intervertebral disc disorders with radiculopathy, lumbar region; M51.17 Intervertebral disc disorders with radiculopathy, lumbosacral region; E87.6 Hypokalemia; G89.29 Other chronic pain; M19.90 Unspecified osteoarthritis, unspecified site; I95.1 Orthostatic hypotension; E86.0 Dehydration; T50.2X5A Adverse effect of carbonic-anhydrase inhibitors, benzothiadiazides and other diuretics, initial encounter; T40.605A Adverse effect of unspecified narcotics, initial encounter; F41.9 Anxiety disorder, unspecified; Z85.41 Personal history of malignant neoplasm of cervix uteri; Z90.710 Acquired absence of both cervix and uterus; Z87.891 Personal history of nicotine dependence; Z79.890 Hormone replacement therapy; Z79.899 Other long term (current) drug therapy
CPT/HCPCS: 36430; 36600; 70450; 72100; 72128; 72131; 80048; 80053; 81001; 82140; 82607; 82746; 82805; 83735; 84439; 84443; 84484; 85025; 86850; 86891; 86900; 86901; 86920

== ENCOUNTER 2024-02-06 09:56 | Inpatient (IN) | payer MEDICARE ==
--- NOTE | 2024-02-06 10:28 | ED ---
Dizziness HPI - General Chief Complaint: Syncope Stated Complaint: Syncope Time Seen by Provider: 02/06/24 10:22 Source: patient, EMS, RN notes reviewed Mode of arrival: EMS Limitations: no limitations - History of Present Illness Initial Comments: 73-year-old female presenting to the ER for evaluation of syncopal episode prior to arrival. States she underwent lumbar spine surgery 2 weeks ago where they doubled her lisinopril, and since then patient states she has had issues with her blood pressure. States she has been checking her blood pressure at home and it has been very low, which she believes is causing her to have a near syncopal and syncope episodes. States in the morning, this syncope/near syncope episodes occur when she stands from a sitting position. States she has had 2 syncopal episodes and many near syncopal episodes since she has been discharged from the hospital. States she discontinued the lisinopril 1 week ago as her blood pressure was 80/50. Denies chest pain, shortness of breath, headache, abdominal pain, drainage from the incision site. Denies blood thinners. Denies injuries from the falls. Denies hitting head. - Related Data Home Medications Medication Instructions Recorded Confirmed Fexofenadine/Pseudoephedrine 1 tab PO DAILY PRN 10/29/14 02/06/24 [Melanie-D 12 Hour Tablet] Levothyroxine Sodium [Synthroid] 100 mcg PO DAILY 10/29/14 02/06/24 [place]blem-3 Fatty Acids/Fish Oil [Fish 1 cap PO DAILY 10/29/14 02/06/24 Oil 1,000 mg Softgel] Escitalopram [Lexapro] 5 mg PO DAILY 01/16/24 02/06/24 Esomeprazole Magnesium [NexIUM] 40 mg PO DAILY 01/16/24 02/06/24 Folic Acid 1 mg PO DAILY 01/16/24 02/06/24 Ibandronate Sodium [Boniva] 150 mg PO QMONTHLY 01/16/24 02/06/24 metHOTREXate sodium [Methotrexate] 7.5 mg PO TU 01/16/24 02/06/24 Acetaminophen Tab [Tylenol] 650 mg PO Q6H PRN 02/06/24 02/06/24 Atorvastatin [Lipitor] 10 mg PO DAILY 02/06/24 02/06/24 Cholecalciferol (Vitamin D3) 50 mcg PO DAILY 02/06/24 02/06/24 [Vitamin D3 (50 Mcg = 2000 Iu)] Sennosides/Docusate Sodium [Senna 1 tab PO DAILY 02/06/24 02/06/24 Plus 8.6-50 mg Tablet] traMADol HCL 50 mg PO BID 02/06/24 02/06/24 Allergies Allergy/AdvReac Type Severity Reaction Status Date / Time No Known Allergies Allergy Verified 02/06/24 12:34 Review of Systems ROS Statement: Those systems with pertinent positive or pertinent negative responses have been documented in the HPI. ROS Other: All systems not noted in ROS Statement are negative. Past Medical History Past Medical History: Hypertension, Osteoarthritis (OA), Thyroid Disorder Additional Past Medical History / Comment(s): SEASONAL ALLERGIES. lower back pain collapsed disc History of Any Multi-Drug Resistant Organisms: MRSA Date of last positivie culture/infection: 01/12/24 MDRO Source:: nasal Past Surgical History: Section, Hysterectomy Additional Past Surgical History / Comment(s): CATARACTS BILATERAL Past Anesthesia/Blood Transfusion Reactions: No Reported Reaction Past Psychological History: No Psychological Hx Reported Smoking Status: Never smoker - Past Family History Father Family Medical History: Coronary Artery Disease (CAD) Mother Family Medical History: Cancer Additional Family Medical History / Comment(s): lung cancer Brother(s) Family Medical History: CVA/TIA General Exam Limitations: no limitations General appearance: alert, in no apparent distress Head exam: Present: atraumatic, normocephalic, normal inspection Eye exam: Present: normal appearance, PERRL, EOMI. Absent: scleral icterus, conjunctival injection, periorbital swelling ENT exam: Present: normal exam, mucous membranes moist Respiratory exam: Present: normal lung sounds bilaterally. Absent: respiratory distress, wheezes, rales, rhonchi, stridor Cardiovascular Exam: Present: regular rate, normal rhythm, normal heart sounds. Absent: systolic murmur, diastolic murmur, rubs, gallop, clicks GI/Abdominal exam: Present: soft, normal bowel sounds. Absent: distended, tenderness, guarding, rebound, rigid Back exam: Present: other (Well-healing vertical incision in lumbar spine, clean dry and intact) Neurological exam: Present: alert, oriented X3, CN II-XII intact Psychiatric exam: Present: normal affect, normal mood Skin exam: Present: warm, dry, intact, normal color. Absent: rash Course Vital Signs 02/06/24 02/06/24 09:57 11:34 Temperature 98 F Pulse Rate 76 Pulse Rate [ [address]] Pulse Rate [ [address] ] Pulse Rate [ [address]ison] Respiratory 18 18 Rate Blood Pressure 148/91 Blood Pressure 122/77 [Right Arm Sitting] Blood Pressure 102/64 [Right Arm Standing] Blood Pressure 171/84 [Right Arm Supine] O2 Sat by Pulse 99 97 Oximetry EKG Findings - EKG Results: EKG: interpreted by KIRAND (EKG reveals normal sinus rhythm with no ST changes. Ventricular rate 69 bpm, LA interval 125, QRS duration 99, QT/QTc 407/) Medical Decision Making - Medical Decision Making Was pt. sent in by a medical professional or institution (, PA, POTATO SORTER, urgent care, hospital, or intermediate...) When possible be specific @ -No Did you speak to anyone other than the patient for history (EMS, parent, family, police, friend...)? What history was obtained from this source @ -No Did you review nursing and triage notes (agree or disagree)? Why? @ -I reviewed and agree with nursing and triage notes Were old charts reviewed (outside hosp., previous admission, EMS record, old EKG, old radiological studies, urgent care reports/EKG's, intermediate records)? Report findings @ -No old charts were reviewed Differential Diagnosis (chest pain, altered mental status, abdominal pain women, abdominal pain men, vaginal bleeding, weakness, fever, dyspnea, syncope, headache, dizziness, GI bleed, back pain, seizure, CVA, palpatations, mental health, musculoskeletal)? @ -Differential Syncope: Valvular disease, hypertrophic cardiomyopathy, pulmonary embolism, tamponade, tachycardia, bradycardia, MO, hypovolemia, hemorrhage, dissection, anemia, intracranial hemorrhage, seizure, hypoglycemia, carbon monoxide poisoning, this is not meant to be an all-inclusive list. EKG interpreted by me (3pts min.). @ -As above X-rays interpreted by me (1pt min.). @ -Chest x-ray reveals no acute process, 1.2 cm left upper lobe nodule CT interpreted by me (1pt min.). @ -CT chest reveals no evidence of PE, trace bilateral pleural effusions and extensive postsurgical changes of the visualized lumbar spine with large amount of fluid around hardware, healing left-sided rib fracture U/S interpreted by me (1pt. min.). @ -None done What testing was considered but not performed or refused? (CT, X-rays, U/S, l abs)? Why? @ -None What meds were considered but not given or refused? Why? @ -None Did you discuss the management of the patient with other professionals (professionals i.e. , PA, POTATO SORTER, lab, RT, psych nurse, group social worker, sumac tanner, teacher, environmental protection officer, counseling case manager)? Give summary @ -I spoke with Dr. Flores from [facility] who accepts admission to observation Was smoking cessation discussed for >3mins.? @ -No Was critical care preformed (if so, how long)? @ -No Were there social determinants of health that impacted care today? How? (Homelessness, low income, unemployed, alcoholism, drug addiction, transportation, low edu. Level, literacy, decrease access to med. care, [place] [facility], rehab)? @ -No Was there de-escalation of care discussed even if they declined (Discuss DNR or withdrawal of care, Hospice)? DNR status @ -No What co-morbidities impacted this encounter? (DM, HTN, Smoking, COPD, CAD, Cance r, CVA, ARF, Chemo, Hep., AIDS, mental health diagnosis, sleep apnea, morbid obesity)? @ -None Was patient admitted / discharged? Hospital course, mention meds given and route, prescriptions, significant lab abnormalities, going to OR and other pertinent info. @ -Admitted. This is a 73-year-old female presenting for multiple syncopal episodes over the past 2 weeks status post low back surgery with Dr. Rahman. Endorses lightheadedness when standing from a sitting position. Orthostatic vital signs are positive. Lab work remarkable for elevated D-dimer, CT chest then obtained which revealed no evidence of PE, trace bilateral pleural effusions, and extensive postsurgical changes of the visualized lumbar spine with large amount of fluid around hardware. I spoke with Dr. Flores for admiss ion to observation for orthostatic hypotension. Case was discussed with my ED attending Dr. Gomez. Patient is agreeable to this plan. Undiagnosed new problem with uncertain prognosis? @ -No Drug Therapy requiring intensive monitoring for toxicity (Heparin, Nitro, Insulin, Cardizem)? @ -No Were any procedures done? @ -No Diagnosis/symptom? @ -Orthostatic hypotension Acute, or Chronic, or Acute on Chronic? @ -Acute Uncomplicated (without systemic symptoms) or Complicated (systemic symptoms)? @ -Complicated Side effects of treatment? @ -No Exacerbation, Progression, or Severe Exacerbation? @ -No Poses a threat to life or bodily function? How? (Chest pain, USA, MO, pneumonia, PE, COPD, DKA, ARF, appy, cholecystitis, CVA, Diverticulitis, Homicidal, Suicidal, threat to staff... and all critical care pts) @ -Unlikely at this time - Lab Data Result diagrams: 02/06/24 10:38 02/06/24 10:38 Lab Results 02/06/24 02/06/24 02/06/24 Range/Units 10:38 10:38 10:38 WBC 8.6 (3.8-10.6) k/uL RBC 3.23 L (3.80-5.40) m/uL Hgb 9.8 L (11.4-16.0) gm/dL Hct 30.6 L (34.0-46.0) % MCV 94.8 (80.0-100.0) fL MCH 30.5 (25.0-35.0) pg MCHC 32.2 (31.0-37.0) g/dL RDW 15.9 H (11.5-15.5) % Plt Count 687 H (150-450) k/uL MPV 7.0 Neutrophils % 77 % Lymphocytes % 11 % Monocytes % 9 % Eosinophils % 1 % Basophils % 1 % Neutrophils # 6.6 (1.3-7.7) k/uL Lymphocytes # 1.0 (1.0-4.8) k/uL Monocytes # 0.7 (0-1.0) k/uL Eosinophils # 0.1 (0-0.7) k/uL Basophils # 0.0 (0-0.2) k/uL Hypochromasia Slight PT 11.1 (10.0-12.5) sec INR 1.0 (<1.2) APTT 24.0 (22.0-30.0) sec D-Dimer 8.60 H (<0.60) mg/L FEU Sodium 131 L (137-145) mmol/L Potassium 4.1 (3.5-5.1) mmol/L Chloride 100 (98-107) mmol/L Carbon Dioxide 26 (22-30) mmol/L Anion Gap 5 mmol/L BUN 10 (7-17) mg/dL Creatinine 0.70 (0.52-1.04) mg/dL Est GFR (CKD-EPI)AfAm >90 (>60 ml/min/1.73 sqM) Est GFR (CKD-EPI)NonAf 86 (>60 ml/min/1.73 sqM) Glucose 92 (74-99) mg/dL Plasma Lactic Acid Scott (0.7-2.0) mmol/L Calcium 8.6 (8.4-10.2) mg/dL Total Bilirubin 0.6 (0.2-1.3) mg/dL AST 24 (14-36) U/L ALT 15 (4-34) U/L Alkaline Phosphatase 214 H (38-126) U/L Troponin I (0.000-0.034) ng/mL Total Protein 5.7 L (6.3-8.2) g/dL Albumin 3.2 L (3.5-5.0) g/dL 02/06/24 02/06/24 Range/Units 10:38 10:38 WBC (3.8-10.6) k/uL RBC (3.80-5.40) m/uL Hgb (11.4-16.0) gm/dL Hct (34.0-46.0) % MCV (80.0-100.0) fL MCH (25.0-35.0) pg MCHC (31.0-37.0) g/dL RDW (11.5-15.5) % Plt Count (150-450) k/uL MPV Neutrophils % % Lymphocytes % % Monocytes % % Eosinophils % % Basophils % % Neutrophils # (1.3-7.7) k/uL Lymphocytes # (1.0-4.8) k/uL Monocytes # (0-1.0) k/uL Eosinophils # (0-0.7) k/uL Basophils # (0-0.2) k/uL Hypochromasia PT (10.0-12.5) sec INR (<1.2) APTT (22.0-30.0) sec D-Dimer (<0.60) mg/L FEU Sodium (137-145) mmol/L Potassium (3.5-5.1) mmol/L Chloride (98-107) mmol/L Carbon Dioxide (22-30) mmol/L Anion Gap mmol/L BUN (7-17) mg/dL Creatinine (0.52-1.04) mg/dL Est GFR (CKD-EPI)AfAm (>60 ml/min/1.73 sqM) Est GFR (CKD-EPI)NonAf (>60 ml/min/1.73 sqM) Glucose (74-99) mg/dL Plasma Lactic Acid Scott 0.8 (0.7-2.0) mmol/L Calcium (8.4-10.2) mg/dL Total Bilirubin (0.2-1.3) mg/dL AST (14-36) U/L ALT (4-34) U/L Alkaline Phosphatase (38-126) U/L Troponin I <0.012 (0.000-0.034) ng/mL Total Protein (6.3-8.2) g/dL Albumin (3.5-5.0) g/dL Disposition Clinical Impression: Orthostatic hypotension Disposition: ADMITTED IP TO THIS HOSP Referrals: Fco Galan MD [Primary Care Provider] - 1-2 days Time of Disposition: 14:14
[2024-02-06 10:55] LABS: ALT 15 U/L (4-34); AST 24 U/L (14-36); African American GFR (CKD) >90 (>60 ml/min/1.73 sqM); Albumin 3.2 g/dL (3.5-5.0); Alkaline Phosphatase 214 U/L (38-126); Anion Gap 5 mmol/L; Blood Urea Nitrogen 10 mg/dL (7-17); Calcium 8.6 mg/dL (8.4-10.2); Carbon Dioxide 26 mmol/L (22-30); Chloride 100 mmol/L (98-107); Glucose 92 mg/dL (74-99); Non-African American GFR(CKD) 86 (>60 ml/min/1.73 sqM); Potassium 4.1 mmol/L (3.5-5.1); Sodium 131 mmol/L (137-145); Total Bilirubin 0.6 mg/dL (0.2-1.3); Total Protein 5.7 g/dL (6.3-8.2)
[2024-02-06 11:01] LABS: Basophils % (A) 1 %; Eosinophils # (A) 0.1 k/uL (0-0.7); Eosinophils % (A) 1 %; HCT 30.6 % (34.0-46.0); HGB 9.8 gm/dL (11.4-16.0); Hypochromasia Slight; Lymphocytes % (A) 11 %; MCH 30.5 pg (25.0-35.0); MCHC 32.2 g/dL (31.0-37.0); MCV 94.8 fL (80.0-100.0); Monocytes # (A) 0.7 k/uL (0-1.0); Monocytes % (A) 9 %; Neutrophils # (A) 6.6 k/uL (1.3-7.7); Neutrophils % (A) 77 %; Platelet Count 687 k/uL (150-450); RBC 3.23 m/uL (3.80-5.40); RDW 15.9 % (11.5-15.5); WBC 8.6 k/uL (3.8-10.6)
--- NOTE | 2024-02-06 11:04 | XR ---
EXAMINATION TYPE: XR chest 2V DATE OF EXAM: 02/06/2024 COMPARISON: NONE CLINICAL INDICATION: Female, 73 years old with history of syncope; , TECHNIQUE: XR chest 2V views of the chest. FINDINGS: The lungs are clear and there is no pneumothorax, pleural effusion, or focal pneumonia. Heart size normal and no overt failure. Postsurgical changes involving the vertebral column. Diffuse hyperinflat ion. Vague nodule measuring 1.2 cm left upper lobe. Underlying emphysematous changes. Generalized dem ineralization with shoulder arthropathy. IMPRESSION: 1. No acute process. There is a 1.2 cm left upper lobe nodule. Recommend short-term follow-up CT eldon aguilera [facility], , 02/06/2024 11:02 AM
[2024-02-06 11:25] LABS: Prothrombin Time 11.1 sec (10.0-12.5)
--- NOTE | 2024-02-06 12:55 | CT ---
EXAMINATION TYPE: CT angio chest CT DLP: 305.9 mGycm, Automated exposure control for dose reduction was used. DATE OF EXAM: 02/06/2024 12:30 PM COMPARISON: CT thoracolumbar spine 01/19/2024, chest radiograph 02/06/2024 CLINICAL INDICATION:Female, 73 years old with history of syncope, elevated D-dimer; syncope, elevated D-dimer TECHNIQUE/CONTRAST: CTA scan of the thorax is performed with IV Contrast, patient injected with 100 mL of Isovue 370, pul monary embolism protocol. MIP images are created and reviewed. FINDINGS: Pulmonary Artery: There is no evidence for a filling defect within the pulmonary vasculature to sugge st acute pulmonary embolism. The pulmonary artery is of normal size. Lungs/Pleura: Trace bilateral pleural effusions. No focal consolidation or pneumothorax. Biapical ple uroparenchymal scarring. Airway: Large airways are patent. Heart: Heart is within normal limits for size.. No pericardial effusion. Coronary artery calcificatio ns. Vasculature: No evidence of aortic aneurysm. Mild atherosclerotic calcification of the aorta and its branches. Mediastinum: No evidence of adenopathy. Musculoskeletal: No acute osseous abnormalities. Redemonstrated extensive postsurgical changes in the visualized thoracolumbar spine. There is fluid surrounding the hardware measuring grossly 8.9 x 4.2 cm (series 501, image 157). Vertebral augmentation identified within the T10 vertebral body. Remote h ealing left sided rib fractures. Fracture lines are still visible. Degenerative endplate changes invo lving the inferior endplate of the T9 vertebral body. Soft Tissues: Unremarkable. Lower neck: No significant findings. Upper Abdomen: No significant findings. IMPRESSION: 1. No evidence of pulmonary embolism. 2. Trace bilateral pleural effusions. 3. Extensive postsurgical changes of the visualized thoracic lumbar spine fusion hardware. There is l arge amount of fluid surrounding the visualized portions of the hardware. May represent a seroma vers us other etiologies. Correlate clinically. 4. Healing left-sided rib fractures redemonstrated. [facility], , 02/06/2024 12:53 PM
[2024-02-06] MEDS ORDERED: ACETAMINOPHEN TAB 325 MG TAB PO PRN (14:12)
[2024-02-06] MEDS ORDERED: ONDANSETRON 4 MG/2 ML VIAL IVP PRN (14:12)
[2024-02-06] MEDS ORDERED: NALOXONE 0.4 MG/ML 1 ML VIAL IV PRN (14:12)
[2024-02-06] MEDS: MORPHINE SULFATE 4 MG/ML SYRINGE IV PRN (15:21)
[2024-02-06] MEDS ORDERED: LORATADINE-PSEUDOEPH 5-120 MG 1 EACH TAB.ER.12H PO PRN (18:06)
--- NOTE | 2024-02-06 18:30 | P.HPIM ---
History of Present Illness This is a pleasant 73 years old female with past medical history of multiple medical problems as below. Patient was in this facility about 2 weeks ago where she had back surgery and discharged in stable condition at home. Postdischarge patient started having postural symptoms and dizziness and at times she has to sit down and rest she will fall. Despite her precautions she passed out 4 times, 1 last Tuesday and 1 just prior to hospitalization, patient description consistent with orthostatic hypotension and syncope. Patient and at bedside were checking her blood pressure on the advice of home health care nurse and it was always low to the degree they held her blood pressure medication, and related blood pressure on standing it was low also. She denies chest pain or dyspnea or coughing No GI/ symptoms like diarrhea or vomiting abdominal pain or urgency of urination. She feels some dizziness on and off, she felt well after surgery but gradually was getting worse. She denies weakness or numbness in her extremities Her appetite is getting better Patient denies smoking or illicit drugs, she drinks beers occasionally. Patient had severe lumbar spine stenosis of L5-S1 with bilateral lower extremity radiculopathy and neurogenic claudication and she underwent multiple osteotomies and laminectomies with spinal fusion on 01/[address] Rahman Patient vitals look stable However she has positive orthostatic hypotension with a drop of blood pressure from 171/84 down to 102/64 D-dimer elevated at 0.6 Hemoglobin 9.8, platelet count elevated 687, sodium 131, troponins negative less than 0.012 Rest of BMP and liver enzymes and INR were unremarkable Chest x-ray showing 1.2 cm left upper lobe nodule CTA of the chest is negative for PE and there is extensive postsurgical changes of the thoracolumbar spine with a fusion hardware and there is a large fluid collection surrounding the portion of the hardware suspicious for seroma versus others Patient currently started on normal saline 75 mL/h Review of Systems Review of systems CONSTITUTIONAL: No fever, no malaise, no fatigue. HEENT: No recent visual problems or hearing problems. Denied any sore throat. CARDIOVASCULAR: No orthopnea, PND, no palpitations, no syncope. PULMONARY: No shortness of breath, no cough, no hemoptysis. GASTROINTESTINAL: No diarrhea, no nausea, no vomiting, no abdominal pain. Normoactive bowel sounds. NEUROLOGICAL: No headaches, no weakness, no numbness. HEMATOLOGICAL: Denies any bleeding or petechiae. GENITOURINARY: Denies any burning micturition, frequency, or urgency. MUSCULOSKELETAL/RHEUMATOLOGICAL: Denies any joint pain, swelling, or any muscle pain. ENDOCRINE: Denies any polyuria or polydipsia. Past Medical History Past Medical History: Hypertension, Osteoarthritis (OA), Thyroid Disorder Additional Past Medical History / Comment(s): SEASONAL ALLERGIES. lower back pain collapsed disc History of Any Multi-Drug Resistant Organisms: MRSA Date of last positivie culture/infection: 01/12/24 MDRO Source:: nasal Past Surgical History: Section, Hysterectomy Additional Past Surgical History / Comment(s): CATARACTS BILATERAL Past Anesthesia/Blood Transfusion Reactions: No Reported Reaction Past Psychological History: No Psychological Hx Reported Smoking Status: Never smoker - Past Family History Father Family Medical History: Coronary Artery Disease (CAD) Mother Family Medical History: Cancer Additional Family Medical History / Comment(s): lung cancer Brother(s) Family Medical History: CVA/TIA Medications and Allergies Home Medications Medication Instructions Recorded Confirmed Type Fexofenadine/Pseudoephedrine 1 tab PO DAILY PRN 10/29/14 02/06/24 History [Melanie-D 12 Hour Tablet] Levothyroxine Sodium [Synthroid] 100 mcg PO DAILY 10/29/14 02/06/24 History Lodi-3 Fatty Acids/Fish Oil [Fish 1 cap PO DAILY 10/29/14 02/06/24 History Oil 1,000 mg Softgel] Escitalopram [Lexapro] 5 mg PO DAILY 01/16/24 02/06/24 History Esomeprazole Magnesium [NexIUM] 40 mg PO DAILY 01/16/24 02/06/24 History Folic Acid 1 mg PO DAILY 01/16/24 02/06/24 History Ibandronate Sodium [Boniva] 150 mg PO QMONTHLY 01/16/24 02/06/24 History metHOTREXate sodium [Methotrexate] 7.5 mg PO TU 01/16/24 02/06/24 History Acetaminophen Tab [Tylenol] 650 mg PO Q6H PRN 02/06/24 02/06/24 History Atorvastatin [Lipitor] 10 mg PO DAILY 02/06/24 02/06/24 History Cholecalciferol (Vitamin D3) 50 mcg PO DAILY 02/06/24 02/06/24 History [Vitamin D3 (50 Mcg = 2000 Iu)] Sennosides/Docusate Sodium [Senna 1 tab PO DAILY 02/06/24 02/06/24 History Plus 8.6-50 mg Tablet] traMADol HCL 50 mg PO BID 02/06/24 02/06/24 History Allergies Allergy/AdvReac Type Severity Reaction Status Date / Time No Known Allergies Allergy Verified 02/06/24 12:34 Physical Exam Vitals: Vital Signs Temp Pulse Pulse Pulse Pulse Resp BP 02/06/24 11:34 66 74 64 18 02/06/24 09:57 98 F 76 18 148/91 BP BP BP Pulse Ox 02/06/24 11:34 122/77 102/64 171/84 97 02/06/24 09:57 99 Intake and Output 02/06/24 02/06/24 02/06/24 06:59 14:59 22:59 Other: Weight 59.874 kg . GENERAL: The patient is alert and oriented x3, not in any acute distress. We ll developed, well nourished. HEENT: Pupils are round and equally reacting to light. EOMI. No scleral icterus. No conjunctival pallor. Normocephalic, atraumatic. No pharyngeal erythema. No thyromegaly. CARDIOVASCULAR: S1 and S2 present. No murmurs, rubs, or gallops. PULMONARY: Chest is clear to auscultation, no wheezing , no crackles. ABDOMEN: Soft, nontender, nondistended, normoactive bowel sounds. No palpable organomegaly. -MUSCULOSKELETAL: No joint swelling or deformity. Surgical wounds of the thoracolumbar area with dressing in place EXTREMITIES: No cyanosis, clubbing, or pedal edema. NEUROLOGICAL: Gross neurological examination did not reveal any focal deficits. SKIN: No rashes. no petechiae. Results CBC & Chem 7: 02/06/24 10:38 02/06/24 10:38 Labs: Abnormal Lab Results - Last 24 Hours (Table) 02/06/24 02/06/24 02/06/24 Range/Units 10:38 10:38 10:38 RBC 3.23 L (3.80-5.40) m/uL Hgb 9.8 L (11.4-16.0) gm/dL Hct 30.6 L (34.0-46.0) % RDW 15.9 H (11.5-15.5) % Plt Count 687 H (150-450) k/uL D-Dimer 8.60 H (<0.60) mg/L FEU Sodium 131 L (137-145) mmol/L Alkaline Phosphatase 214 H (38-126) U/L Total Protein 5.7 L (6.3-8.2) g/dL Albumin 3.2 L (3.5-5.0) g/dL Assessment and Plan Assessment: Multiple syncope secondary to postural l hypotension Hypotension severe lumbar spine stenosis of L5-S1 with bilateral lower extremity radiculopathy and neurogenic claudication and she underwent multiple osteotomies and laminectomies with spinal fusion on 01/18. [address] CT of the chest showing large fluid collection surrounding the hardware suspicious for seroma versus other Hypothyroidism Elevated D-dimer with negative CTA for PE Chronic anemia Mild hypovolemic hyponatremia Left upper lung nodule 1.2 cm that require outpatient follow-up Osteoporosis on Boniva at home Depression Hypothyroidism Plan: Continue with IV hydration Monitor blood pressure and check orthostatic hypotension Use compression stockings Check echocardiogram as there is no recent test in the system Check inflammatory markers like ESR, ESR, C-reactive protein, Check TSH Consult orthopedic surgery for postop care and for fluid collection Check blood culture Check pro- Calcitonin and CRP Labs and medication were reviewed.. Continue same treatment. Continue with symptomatic treatment. Resume home medication. Monitor labs and vitals. DVT and GI prophylaxis. Further recommendations as per clinical course of the patient DVT prophylaxis: Subcutaneous heparin GI Prophylaxis: Pepcid PT/OT: Pending Prognosis is guarded
[2024-02-06 19:22] LABS: C Reactive Protein 4.5 mg/dL (<1.0)
[2024-02-06 20:05] LABS: T4, Free (Free Thyroxine) 1.63 ng/dL (0.78-2.19)
[2024-02-06] MEDS: SODIUM CHLORIDE 0.9% 1,000 ML IV SCH (21:56)
[2024-02-07] MEDS: LEVOTHYROXINE 100 MCG TAB PO SCH (05:42)
[2024-02-07] MEDS: KETOROLAC 15 MG/ML 1 ML VIAL IVP PRN (08:13)
[2024-02-07] MEDS: ESCITALOPRAM 5 MG TAB PO SCH (08:39)
[2024-02-07] MEDS: ATORVASTATIN 10 MG TAB PO SCH (08:39)
[2024-02-07] MEDS: FOLIC ACID 1 MG TAB PO SCH (08:39)
[2024-02-07] MEDS: CHOLECALCIFEROL 25 MCG (1000 IU) TABLET PO SCH (08:39)
[2024-02-07 08:43] LABS: Basophils # (A) 0.07 X 10*3/uL (0.00-0.10); Basophils % (A) 0.8 %; Eosinophils # (A) 0.16 X 10*3/uL (0.04-0.35); Eosinophils % (A) 1.9 %; HCT 28.4 % (37.2-46.3); HGB 9.2 g/dL (12.0-15.0); Lymphocytes # (A) 1.01 X 10*3/uL (0.90-5.00); Lymphocytes % (A) 12.2 %; MCH 29.8 pg (27.0-32.0); MCHC 32.4 g/dL (32.0-37.0); MCV 91.9 FL (80.0-97.0); Mean Platelet Volume 9.3 FL (9.5-12.2); Monocytes # (A) 1.23 X 10*3/uL (0.20-1.00); Monocytes % (A) 14.9 %; NRBC Per 100 WBC 0 X 10*3/uL (0.00-0.01); Neutrophils # (A) 5.76 X 10*3/uL (1.80-7.70); Neutrophils % (A) 69.6 %; Platelet Count 588 X 10*3/uL (140-440); RBC 3.09 X 10*6/uL (4.10-5.20); RDW 15.9 % (11.5-14.5); WBC 8.28 X 10*3/uL (4.50-10.00)
[2024-02-07 08:55] LABS: BUN/Creat Ratio 18.57 Ratio (12.00-20.00); Calcium 8.5 mg/dL (8.7-10.3); Chloride 96 mmol/L (96-109); Glucose 102 mg/dL (70-110); Potassium 4.4 mmol/L (3.5-5.5); Sodium 135 mmol/L (135-145)
--- NOTE | 2024-02-07 11:19 | CA ---
Transthoracic Echo Report Name: Jaimie Stephens Age: 73 Gender: F : 1950 Exam Date: 02/07/2024 08:59 Exam Location: [facility] Ht (in): 67 Wt (lb): 132 Ordering Physician: Tony Flores MD Attending/Referring Phys: [id number], Mark Cannery Worker Sharona Caldwell RDCS Procedure CPT: Indications: Chest Pain Cardiac Hx: Technical Quality: Fair Contrast 1: Total Dose (mL): Contrast 2: Total Dose (mL): MEASUREMENTS (Male / Female) Normal Values 2D ECHO LV Diastolic Diameter PLAX 4.9 cm 4.2 - 5.9 / 3.9 - 5.3 cm LV Systolic Diameter PLAX 3.5 cm IVS Diastolic Thickness 1.0 cm 0.6 - 1.0 / 0.6 - 0.9 cm LVPW Diastolic Thickness 1.0 cm 0.6 - 1.0 / 0.6 - 0.9 cm LV Relative Wall Thickness 0.4 LVOT Diameter 2.1 cm Aortic Root Diameter 3.3 cm LV Diastolic Volume MOD BP 100.3 cm??? 67 - 155 / 56 - 104 cm??? LV Systolic Volume MOD BP 41.4 cm??? 22 - 58 / 19 - 49 cm??? LV Ejection Fraction MOD BP 58.7 % >= 55 % LV Cardiac Index MOD BP 2348.3 cm???/min???m??? LV Diastolic Volume MOD 4C 104.1 cm??? LV Systolic Volume MOD 4C 47.5 cm??? LV Ejection Fraction MOD 4C 54.4 % LV Cardiac Index MOD 4C 2260.1 cm???/min???m??? LV Diastolic Length 4C 7.3 cm LV Systolic Length 4C 5.8 cm LV Diastolic Volume MOD 2C 93.6 cm??? LV Systolic Volume MOD 2C 32.8 cm??? LV Ejection Fraction MOD 2C 64.9 % LV Cardiac Index MOD 2C 2426.5 cm???/min???m??? LV Diastolic Length 2C 7.0 cm LV Systolic Length 2C 5.1 cm LA Volume 45.4 cm??? 18 - 58 / 22 - 52 cm??? LA Volume Index 27.0 cm???/m??? 16 - 28 cm???/m??? DOPPLER AV Peak Velocity 132.5 cm/s AV Peak Gradient 7.0 mmHg AV Mean Velocity 77.1 cm/s AV Mean Gradient 2.8 mmHg AV Velocity Time Integral 27.7 cm LVOT Peak Velocity 113.5 cm/s LVOT Peak Gradient 5.2 mmHg LVOT Velocity Time Integral 24.5 cm LVOT Stroke Volume 87.4 cm??? LVOT Stroke Volume Index 51.6 ml/m??? LVOT Cardiac Index 3487.6 cm???/min???m??? AV Area Cont Eq vti 3.2 cm??? AV Area Cont Eq pk 3.1 cm??? MV Area PHT 3.7 cm??? Mitral E Point Velocity 70.8 cm/s Mitral A Point Velocity 70.8 cm/s Mitral E to A Ratio 1.0 MV Deceleration Time 202.4 ms TR Peak Velocity 250.9 cm/s TR Peak Gradient 25.2 mmHg Right Atrial Pressure 5.0 mmHg Pulmonary Artery Systolic Pressu 30.2 mmHg Right Ventricular Systolic Press 30.2 mmHg PV Peak Velocity 93.9 cm/s PV Peak Gradient 3.5 mmHg FINDINGS Left Ventricle Left ventricular ejection fraction is estimated at 55-60 %. Normal left ventricular systolic function with no obvious regional wall motion abnormalities. Left ventricular cavity size normal. Right Ventricle Normal right ventricular size and function. Right ventricular systolic pressure within normal limits. Right Atrium Normal right atrial size. Left Atrium Normal left atrial size. Mitral Valve Structurally normal mitral valve. No evidence for mitral valve prolapse. No mitral stenosis. Mild mitral regurgitation. Aortic Valve Trileaflet aortic valve. Aortic valve sclerosis. No aortic stenosis. No aortic regurgitation. Tricuspid Valve Structurally normal tricuspid valve. No tricuspid stenosis. Mild tricuspid regurgitation. Pulmonic Valve Pulmonic valve not well visualized. No pulmonic stenosis. No pulmonic regurgitation. Pericardium No pericardial effusion. Aorta Aortic annulus normal. Ascending aorta not well visualized. CONCLUSIONS 1. Normal left ventricular size and systolic function 2. Mild mitral and tricuspid regurgitation with no evidence of pulmonary hypertension Previewed by: Dr. Luly De Guzman MD (Electronically Signed) Final Date: 07 February 2024 11:18
--- NOTE | 2024-02-07 14:22 | P.CRDCN ---
History of Present Illness Consult date: 02/07/24 Reason for Consult (text): Postural hypotension History of present illness: This is a 73-year-old female with past medical history of hypertension, hyperlipidemia, gastroesophageal reflux disease, rheumatoid arthritis on methotrexate. Patient denies cardiac history and does not follow with a glove turner. We have been asked to evaluate the patient for postural hypertension. Patient had thoracic/lumbar surgery done 2 weeks ago and in the postop period, patient was having orthostatic hypotension with significant change in her blood pressure readings and was taken off lisinopril. She states she continues to have the low blood pressure and has had a total of 5 falls at home and of 2 of those she passed out. She has never had a problem will with passing out or lightheadedness dizziness in the past. She denies have any shortness of breath no chest pain or pressure, no lower extremity edema no palpitations. Patient presented to the hospital due to syncopal episodes. She again is found to have orthostatic hypotension. -EKG: Sinus rhythm with no acute ST-T wave changes -Chest x-ray: No acute process. 1.2 cm left upper lobe nodule. -CTA of the chest: No PE. Trace bilateral pleural effusions. Extensive postsurgical changes in the thoracic lumbar spine fusion hardware. A large amount of fluid surrounding the visualized portions of the hardware. May represent seroma versus other etiologies. Healing left rib fractures. -Echocardiogram: EF 55 to 60%, mild mitral and tricuspid regurgitation, no pulmonary hypertension. -Laboratory studies: WBC 8.2, hemoglobin 9.2 sodium 135, potassium 4.4, creatinine 0.7, D-dimer 8.6. Troponin negative x 1. TSH 12.2 with normal free T4. -Home cardiac medications: Atorvastatin 10 mg daily, also on levothyroxine. Review Of Systems: At the time of my exam: CONSTITUTIONAL: Denies fever or chills. HEENT: Denies blurred vision, vision changes, or eye pain. Denies hemoptysis CARDIOVASCULAR: Denies chest pain. Denies orthopnea. Denies PND. Denies palpitations RESPIRATORY: Denies shortness of breath. GASTROINTESTINAL: Denies abdominal pain. Denies nausea or vomiting. HEMATOLOGIC: Denies bleeding disorders. GENITOURINARY: Denies any blood in urine. SKIN: Denies puritis. Denies rash. Physical examination: Gen: This is a 73-year-old female in no acute distress VS: reviewed HEENT: Head is atraumatic, normocephalic. Pupils equal, round. Sclerae is anicteric. NECK: Supple. No JVD. LUNGS: Clear to auscultation. No wheezes or rhonchi. No intercostal retractions. HEART: Regular rate and rhythm. No murmur. ABDOMEN: Soft No tenderness. EXTREMITIES: No pedal edema. No calf tenderness. NEUROLOGICAL: Patient is awake, alert and oriented x3. Assessment: Syncopal episodes and falls secondary to orthostatic hypotension following spinal surgery History of hypertension Hyperlipidemia Gastroesophageal reflux disease Rheumatoid arthritis on methotrexate Remote history of tobacco use, quit 15 years ago Plan: Recommended precautions with changing from sitting to standing position: Pump feet before rising, slowly stand, stand prior to walking, stay hydrated, ALDAIR hose Start patient on midodrine 5 mg 3 times daily Expect that this will improve as patient heals from recent surgery Further recommendations to follow based upon clinical course Thank you kindly for this consultation. Nurse practitioner note has been reviewed, I agree with documented findings and plan of care. Patient was seen and examined. Past Medical History Past Medical History: Hypertension, Osteoarthritis (OA), Thyroid Disorder Additional Past Medical History / Comment(s): SEASONAL ALLERGIES. lower back pain collapsed disc History of Any Multi-Drug Resistant Organisms: MRSA Date of last positivie culture/infection: 01/12/24 MDRO Source:: nasal Past Surgical History: Section, Hysterectomy Additional Past Surgical History / Comment(s): CATARACTS BILATERAL Past Anesthesia/Blood Transfusion Reactions: No Reported Reaction Past Psychological History: No Psychological Hx Reported Smoking Status: Never smoker - Past Family History Father Family Medical History: Coronary Artery Disease (CAD) Mother Family Medical History: Cancer Additional Family Medical History / Comment(s): lung cancer Brother(s) Family Medical History: CVA/TIA Medications and Allergies Home Medications Medication Instructions Recorded Confirmed Type Fexofenadine/Pseudoephedrine 1 tab PO DAILY PRN 10/29/14 02/06/24 History [Melanie-D 12 Hour Tablet] Levothyroxine Sodium [Synthroid] 100 mcg PO DAILY 10/29/14 02/06/24 History Prewitt-3 Fatty Acids/Fish Oil [Fish 1 cap PO DAILY 10/29/14 02/06/24 History Oil 1,000 mg Softgel] Escitalopram [Lexapro] 5 mg PO DAILY 01/16/24 02/06/24 History Esomeprazole Magnesium [NexIUM] 40 mg PO DAILY 01/16/24 02/06/24 History Folic Acid 1 mg PO DAILY 01/16/24 02/06/24 History Ibandronate Sodium [Boniva] 150 mg PO QMONTHLY 01/16/24 02/06/24 History metHOTREXate sodium [Methotrexate] 7.5 mg PO TU 01/16/24 02/06/24 History Acetaminophen Tab [Tylenol] 650 mg PO Q6H PRN 02/06/24 02/06/24 History Atorvastatin [Lipitor] 10 mg PO DAILY 02/06/24 02/06/24 History Cholecalciferol (Vitamin D3) 50 mcg PO DAILY 02/06/24 02/06/24 History [Vitamin D3 (50 Mcg = 2000 Iu)] Sennosides/Docusate Sodium [Senna 1 tab PO DAILY 02/06/24 02/06/24 History Plus 8.6-50 mg Tablet] traMADol HCL 50 mg PO BID 02/06/24 02/06/24 History Allergies Allergy/AdvReac Type Severity Reaction Status Date / Time No Known Allergies Allergy Verified 02/06/24 12:34 Physical Exam Vitals: Vital Signs Temp Pulse Pulse Pulse Pulse Resp BP 02/07/24 11:19 70 66 65 02/07/24 07:00 98.1 F 69 16 02/07/24 02:00 98.5 F 61 16 02/06/24 21:09 89 82 02/06/24 20:43 98.3 F 89 18 02/06/24 19:00 64 16 146/89 02/06/24 16:00 66 16 152/87 02/06/24 13:00 78 18 174/87 BP BP BP Pulse Ox 02/07/24 11:19 129/70 105/66 180/79 98 02/07/24 07:00 167/78 98 02/07/24 02:00 147/75 96 02/06/24 21:09 86/60 141/81 98 02/06/24 20:43 141/81 98 02/06/24 19:00 97 02/06/24 16:00 97 02/06/24 13:00 98 Intake and Output 02/06/24 02/07/24 02/07/24 22:59 06:59 14:59 Other: Voiding Method Bedside Commode Bedside Commode Bedside Commode # Voids 0 2 Weight 59.874 kg Results 02/07/24 05:01 02/07/24 05:01 CBC 02/07/24 Range/Units 05:01 WBC 8.28 (4.50-10.00) X 10*3/uL RBC 3.09 L (4.10-5.20) X 10*6/uL Hgb 9.2 L (12.0-15.0) g/dL Hct 28.4 L (37.2-46.3) % Plt Count 588 H (140-440) X 10*3/uL Comprehensive Metabolic Panel 02/07/24 Range/Units 05:01 Sodium 135 (135-145) mmol/L Potassium 4.4 (3.5-5.5) mmol/L Chloride 96 (96-109) mmol/L Carbon Dioxide 25.0 (21.6-31.8) mmol/L BUN 13.0 (9.0-27.0) mg/dL Creatinine 0.7 (0.6-1.5) mg/dL Glucose 102 (70-110) mg/dL Calcium 8.5 L (8.7-10.3) mg/dL Current Medications Generic Name Dose Route Start Last Admin Trade Name Freq PRN Reason Stop Dose Admin Acetaminophen 650 mg 02/06/24 14:12 Acetaminophen Tab 325 Mg Tab PO Q6HR PRN Mild Pain or Fever > 100.5 Atorvastatin Calcium 10 mg 02/07/24 09:00 02/07/24 08:39 Atorvastatin 10 Mg Tab PO 10 mg DAILY [facility] Administration Cholecalciferol 50 mcg 02/07/24 09:00 02/07/24 08:39 Cholecalciferol 25 Mcg (1000 Iu) Tablet PO 50 mcg DAILY ENID Administration Escitalopram Oxalate 5 mg 02/07/24 09:00 02/07/24 08:39 Escitalopram 5 Mg Tab PO 5 mg DAILY [facility]ID Administration Folic Acid 1 mg 02/07/24 09:00 02/07/24 08:39 Folic Acid 1 Mg Tab PO 1 mg DAILY [facility]ID Administration Sodium Chloride 1,000 mls @ 75 mls/hr 02/06/24 14:15 02/07/24 04:32 Saline 0.9% IV 75 mls/hr .[id number] ENID Administration Ketorolac Tromethamine 15 mg 02/06/24 14:12 02/07/24 08:13 Ketorolac 15 Mg/Ml 1 Ml Vial IVP 02/09/24 14:13 15 mg Q6HR PRN Administration Moderate Pain (Scale 4 to 6) Levothyroxine Sodium 125 mcg 02/08/24 06:30 Levothyroxine 125 Mcg Tab PO DAILY@0630 [facility] Loratadine/Pseudoephedrine Sulfate 1 each 02/06/24 18:06 Loratadine-Pseudoeph 5-120 Mg 1 Each Tab.Er.12h PO DAILY PRN Allergy Symptoms Naloxone HCl 0.2 mg 02/06/24 14:12 Naloxone 0.4 Mg/Ml 1 Ml Vial IV Q2M PRN Opioid Reversal Tramadol HCl 50 mg 02/06/24 18:06 Tramadol 50 Mg Tab PO BID PRN Pain Intake and Output 02/06/24 02/07/24 02/07/24 22:59 06:59 14:59 Other: Voiding Method Bedside Commode Bedside Commode Bedside Commode # Voids 0 2 Weight 59.874 kg 02/07/24 05:01 02/07/24 05:01
--- NOTE | 2024-02-07 14:26 | P.PN ---
Subjective Progress Note Date: 02/07/24 This is a pleasant 73 years old female with past medical history of multiple medical problems as below. Patient was in this facility about 2 weeks ago where she had back surgery and discharged in stable condition at home. Postdischarge patient started having postural symptoms and dizziness and at times she has to sit down and rest she will fall. Despite her precautions she passed out 4 times, 1 last Tuesday and 1 just prior to hospitalization, patient description consistent with orthostatic hypotension and syncope. Patient and at bedside were checking her blood pressure on the advice of home health care nurse and it was always low to the degree they held her blood pressure medication, and related blood pressure on standing it was low also. She denies chest pain or dyspnea or coughing No GI/ symptoms like diarrhea or vomiting abdominal pain or urgency of urination. She feels some dizziness on and off, she felt well after surgery but gradually was getting worse. She denies weakness or numbness in her extremities Her appetite is getting better Patient denies smoking or illicit drugs, she drinks beers occasionally. Patient had severe lumbar spine stenosis of L5-S1 with bilateral lower extremity radiculopathy and neurogenic claudication and she underwent multiple osteotomies and laminectomies with spinal fusion on 01/[address] Rahman Patient vitals look stable However she has positive orthostatic hypotension with a drop of blood pressure from 171/84 down to 102/64 D-dimer elevated at 0.6 Hemoglobin 9.8, platelet count elevated 687, sodium 131, troponins negative less than 0.012 Rest of BMP and liver enzymes and INR were unremarkable Chest x-ray showing 1.2 cm left upper lobe nodule CTA of the chest is negative for PE and there is extensive postsurgical changes of the thoracolumbar spine with a fusion hardware and there is a large fluid collection surrounding the portion of the hardware suspicious for seroma versus others Patient currently started on normal saline 75 mL/h 02/07/2024 Patient is evaluated today in follow-up on the medical floor. She continues to report significant dizziness and lightheadedness when she is up ambulating. At rest she has no symptoms. She states this is an ongoing issue since her back surgery. She was discharged on lisinopril 10 mg twice a day as well as amlodipine she states that she is discontinued both of these on an outpatient basis since her most recent discharge on November 7. She states that she this was under the direction of her family doctor. She is not having any chest pain at this time. She is concerned about discharging home as she is unable to ambulate for long distances of time without getting dizzy and having to sit down. Her ESR and CRP are mildly elevated. Patient did have an elevated TSH of 12.200 with a free T4 of 1.63. Her levothyroxine was increased up to 125 mcg daily. Will also plan to check an a.m. cortisol level and consult cardiology, echocardiogram is still pending. Review of Systems Constitutional: Denied any fatigue denied any fever. Cardio vascular: denied any chest pain, palpitations Gastrointestinal: denied any nausea, vomiting, diarrhea Pulmonary: Denied any shortness of breath cough Neurologic denied any new focal deficits All inpatient medications were reviewed and appropriate changes in these medications as dictated in the interval history and assessment and plan. PHYSICAL EXAMINATION: GENERAL: The patient is alert and oriented x3, not in any acute distress. Well developed, well nourished. HEENT: Pupils are round and equally reacting to light. EOMI. No scleral icterus. No conjunctival pallor. Normocephalic, atraumatic. No pharyngeal erythema. No thyromegaly. CARDIOVASCULAR: S1 and S2 present. No murmurs, rubs, or gallops. PULMONARY: Chest is clear to auscultation, no wheezing or crackles. ABDOMEN: Soft, nontender, nondistended, normoactive bowel sounds. No palpable organomegaly. MUSCULOSKELETAL: No joint swelling or deformity. EXTREMITIES: No cyanosis, clubbing, or pedal edema. NEUROLOGICAL: Gross neurological examination did not reveal any focal deficits. SKIN: No rashes. Assessment and Plan Multiple syncope secondary to postural l hypotension Hypotension severe lumbar spine stenosis of L5-S1 with bilateral lower extremity radiculopathy and neurogenic claudication and she underwent multiple osteotomies and laminectomies with spinal fusion on 01/18. With CT of the chest showing large fluid collection surrounding the hardware suspicious for seroma versus other Hypothyroidism Elevated D-dimer with negative CTA for PE Chronic anemia Mild hypovolemic hyponatremia Left upper lung nodule 1.2 cm that require outpatient follow-up Osteoporosis on Boniva at home Depression Hypothyroidism GI Prophylaxis Orthopedic and cardiology consultation Increase levothyroxine to 125 mcg daily Check a a.m. cortisol level Echocardiogram is ordered and pending Continue to hold lisinopril and amlodipine Hyponatremia has resolved at this time we will continue to monitor electrolytes The impression and plan of care has been dictated by Soledad Pavon, Nurse Practitioner as directed. Dr. Lola MD I have performed a history and physical examination and medical decision making of this patient, discussed the same with the dictator, and agree with the dictators assessment and plan as written, documented as a scribe. Based on total visit time, I have performed more than 50% of this visit. Objective - Vital Signs Vital signs: Vital Signs Temp 98.1 F 02/07/24 07:00 Pulse 69 02/07/24 07:00 Resp 16 02/07/24 07:00 BP 167/78 02/07/24 07:00 Pulse Ox 98 02/07/24 07:00 FiO2 Intake & Output 02/06/24 02/07/24 02/07/24 18:59 06:59 18:59 Weight 59.874 kg Other: Voiding Method Bedside Commode # Voids 2 - Labs CBC & Chem 7: 02/07/24 05:01 02/07/24 05:01 Labs: Abnormal Lab Results - Last 24 Hours (Table) 02/06/24 02/06/24 02/06/24 Range/Units 10:38 10:38 10:38 RBC 3.23 L (3.80-5.40) m/uL Hgb 9.8 L (11.4-16.0) gm/dL Hct 30.6 L (34.0-46.0) % RDW 15.9 H (11.5-15.5) % Plt Count 687 H (150-450) k/uL MPV (9.5-12.2) FL Immature Gran # (0.00-0.04) X 10*3/uL Monocytes # (0.20-1.00) X 10*3/uL ESR (0-30) mm/Hr D-Dimer 8.60 H (<0.60) mg/L FEU Sodium 131 L (137-145) mmol/L Anion Gap (4.00-12.00) mmol/L Calcium (8.7-10.3) mg/dL Alkaline Phosphatase 214 H (38-126) U/L C-Reactive Protein (<1.0) mg/dL Total Protein 5.7 L (6.3-8.2) g/dL Albumin 3.2 L (3.5-5.0) g/dL TSH (0.465-4.680) mIU/L 02/06/24 02/06/24 02/07/24 Range/Units 18:36 18:36 05:01 RBC 3.09 L (3.80-5.40) m/uL Hgb 9.2 L (11.4-16.0) gm/dL Hct 28.4 L (34.0-46.0) % RDW 15.9 H (11.5-15.5) % Plt Count 588 H (150-450) k/uL MPV 9.3 L (9.5-12.2) FL Immature Gran # 0.05 H (0.00-0.04) X 10*3/uL Monocytes # 1.23 H (0.20-1.00) X 10*3/uL ESR 38 H (0-30) mm/Hr D-Dimer (<0.60) mg/L FEU Sodium (137-145) mmol/L Anion Gap (4.00-12.00) mmol/L Calcium (8.7-10.3) mg/dL Alkaline Phosphatase (38-126) U/L C-Reactive Protein 4.5 H (<1.0) mg/dL Total Protein (6.3-8.2) g/dL Albumin (3.5-5.0) g/dL TSH 12.200 H (0.465-4.680) mIU/L 02/07/24 Range/Units 05:01 RBC (3.80-5.40) m/uL Hgb (11.4-16.0) gm/dL Hct (34.0-46.0) % RDW (11.5-15.5) % Plt Count (150-450) k/uL MPV (9.5-12.2) FL Immature Gran # (0.00-0.04) X 10*3/uL Monocytes # (0.20-1.00) X 10*3/uL ESR (0-30) mm/Hr D-Dimer (<0.60) mg/L FEU Sodium (137-145) mmol/L Anion Gap 14.00 H (4.00-12.00) mmol/L Calcium 8.5 L (8.7-10.3) mg/dL Alkaline Phosphatase (38-126) U/L C-Reactive Protein (<1.0) mg/dL Total Protein (6.3-8.2) g/dL Albumin (3.5-5.0) g/dL TSH (0.465-4.680) mIU/L Assessment and Plan Time with Patient: Less than 30
--- NOTE | 2024-02-07 14:59 | P.CNOR ---
History of Present Illness - [facility] Consult date: 02/07/24 Requesting physician: Tony E Sheet Consult reason: other (fluid collection around the hardware) History of present illness: Patient is a 73-year-old female who presents to the emergency department due to continued orthostatic hypotension status post T10 to pelvis decompression and fusion surgery performed on 01/19/2024. Orthopedics was consulted due to possible fluid collection around the hardware found on the CTA. Patient was seen at bedside this morning lying in semirecumbent position and was able to sit up at the edge of the bed without any issues. Patient says she did follow-up with Dr. Rahman about 1 week ago in office where she felt that she was recovering very well in regards to her back surgery. She says she has no complaints in regards to her spine surgery. Patient says she is very concerned now due to the continued falls she has when she is at home. Patient says when she goes from sitting to standing position she gets somewhat dizzy and lightheaded and says she typically will try to fall onto a chair. Patient states normally her blood pressure has been pretty high at baseline. Patient denies any previous cardiac history. Patient says she typically ambulates independently sometimes with the use of a cane/walker. Patient denies any current chest pain, nausea, vomiting, change in vision, loss of bowel/bladder control. Past Medical History Past Medical History: Hypertension, Osteoarthritis (OA), Thyroid Disorder Additional Past Medical History / Comment(s): SEASONAL ALLERGIES. lower back pain collapsed disc History of Any Multi-Drug Resistant Organisms: MRSA Year Discovered:: 01/12/24 MDRO Source:: nasal Past Surgical History: Section, Hysterectomy Additional Past Surgical History / Comment(s): CATARACTS BILATERAL Past Anesthesia/Blood Transfusion Reactions: No Reported Reaction Past Psychological History: No Psychological Hx Reported Smoking Status: Never smoker - Past Family History Father Family Medical History: Coronary Artery Disease (CAD) Mother Family Medical History: Cancer Additional Family Medical History / Comment(s): lung cancer Brother(s) Family Medical History: CVA/TIA Medications and Allergies Home Medications Medication Instructions Recorded Confirmed Type Fexofenadine/Pseudoephedrine 1 tab PO DAILY PRN 10/29/14 02/06/24 History [Melanie-D 12 Hour Tablet] Levothyroxine Sodium [Synthroid] 100 mcg PO DAILY 10/29/14 02/06/24 History Kincheloe-3 Fatty Acids/Fish Oil [Fish 1 cap PO DAILY 10/29/14 02/06/24 History Oil 1,000 mg Softgel] Escitalopram [Lexapro] 5 mg PO DAILY 01/16/24 02/06/24 History Esomeprazole Magnesium [NexIUM] 40 mg PO DAILY 01/16/24 02/06/24 History Folic Acid 1 mg PO DAILY 01/16/24 02/06/24 History Ibandronate Sodium [Boniva] 150 mg PO QMONTHLY 01/16/24 02/06/24 History metHOTREXate sodium [Methotrexate] 7.5 mg PO TU 01/16/24 02/06/24 History Acetaminophen Tab [Tylenol] 650 mg PO Q6H PRN 02/06/24 02/06/24 History Atorvastatin [Lipitor] 10 mg PO DAILY 02/06/24 02/06/24 History Cholecalciferol (Vitamin D3) 50 mcg PO DAILY 02/06/24 02/06/24 History [Vitamin D3 (50 Mcg = 2000 Iu)] Sennosides/Docusate Sodium [Senna 1 tab PO DAILY 02/06/24 02/06/24 History Plus 8.6-50 mg Tablet] traMADol HCL 50 mg PO BID 02/06/24 02/06/24 History Allergies Allergy/AdvReac Type Severity Reaction Status Date / Time No Known Allergies Allergy Verified 02/06/24 12:34 Physical Examination Inspection: Incision appears to be healing very well over thoracolumbar spine. Some minimal scabbing present along the superior portion of the incision. Negative for any active drainage. Minimal swelling. Sensation: Equal, symmetric, bilat intact throughout extremities on exam. Palpation: Minimal tenderness to palpation diffusely throughout the spine at midline near incision. NTTP throughout rest of exam Range of motion: Patient does have limited range of motion in bilateral lower extremities on exam secondary to recent surgery and referred stiffness and pain to the low back. Motor: 5/5 in all major motor groups in bilateral upper extremities. 4/5 in bilateral hips in flexion. 4/5 in bilateral knee extension and flexion. 4-/5 in plantarflexion in the right lower extremity. 4/5 in plantarflexion of left lower extremity. 3/5 in left ankle dorsi flexion. 4/5 in right ankle dorsiflexion. EHL and FHL 4/5 bilaterally Neurovascular: Radial pulse intact bilaterally. DP pulses palpable bilaterally. Cap refill under 3 seconds in digits of upper extremities. Special test: Negative Homans bilaterally. Negative clonus bilaterally. Negative Nelda bilaterally. Results - Labs Labs: Abnormal Lab Results - Last 24 Hours (Table) 02/06/24 02/06/24 02/06/24 Range/Units 10:38 10:38 10:38 RBC 3.23 L (3.80-5.40) m/uL Hgb 9.8 L (11.4-16.0) gm/dL Hct 30.6 L (34.0-46.0) % RDW 15.9 H (11.5-15.5) % Plt Count 687 H (150-450) k/uL MPV (9.5-12.2) FL Immature Gran # (0.00-0.04) X 10*3/uL Monocytes # (0.20-1.00) X 10*3/uL ESR (0-30) mm/Hr D-Dimer 8.60 H (<0.60) mg/L FEU Sodium 131 L (137-145) mmol/L Anion Gap (4.00-12.00) mmol/L Calcium (8.7-10.3) mg/dL Alkaline Phosphatase 214 H (38-126) U/L C-Reactive Protein (<1.0) mg/dL Total Protein 5.7 L (6.3-8.2) g/dL Albumin 3.2 L (3.5-5.0) g/dL TSH (0.465-4.680) mIU/L 02/06/24 02/06/24 02/07/24 Range/Units 18:36 18:36 05:01 RBC 3.09 L (3.80-5.40) m/uL Hgb 9.2 L (11.4-16.0) gm/dL Hct 28.4 L (34.0-46.0) % RDW 15.9 H (11.5-15.5) % Plt Count 588 H (150-450) k/uL MPV 9.3 L (9.5-12.2) FL Immature Gran # 0.05 H (0.00-0.04) X 10*3/uL Monocytes # 1.23 H (0.20-1.00) X 10*3/uL ESR 38 H (0-30) mm/Hr D-Dimer (<0.60) mg/L FEU Sodium (137-145) mmol/L Anion Gap (4.00-12.00) mmol/L Calcium (8.7-10.3) mg/dL Alkaline Phosphatase (38-126) U/L C-Reactive Protein 4.5 H (<1.0) mg/dL Total Protein (6.3-8.2) g/dL Albumin (3.5-5.0) g/dL TSH 12.200 H (0.465-4.680) mIU/L 02/07/24 Range/Units 05:01 RBC (3.80-5.40) m/uL Hgb (11.4-16.0) gm/dL Hct (34.0-46.0) % RDW (11.5-15.5) % Plt Count (150-450) k/uL MPV (9.5-12.2) FL Immature Gran # (0.00-0.04) X 10*3/uL Monocytes # (0.20-1.00) X 10*3/uL ESR (0-30) mm/Hr D-Dimer (<0.60) mg/L FEU Sodium (137-145) mmol/L Anion Gap 14.00 H (4.00-12.00) mmol/L Calcium 8.5 L (8.7-10.3) mg/dL Alkaline Phosphatase (38-126) U/L C-Reactive Protein (<1.0) mg/dL Total Protein (6.3-8.2) g/dL Albumin (3.5-5.0) g/dL TSH (0.465-4.680) mIU/L H & H 02/06/24 02/07/24 Range/Units 10:38 05:01 Hgb 9.8 L 9.2 L (11.4-16.0) gm/dL Hct 30.6 L 28.4 L (34.0-46.0) % Coagulation 02/06/24 Range/Units 10:38 INR 1.0 (<1.2) Result Diagrams: 02/07/24 05:01 02/07/24 05:01 Assessment and Plan Assessment: 1. 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 NEUROGENIC CLAUDICATION 3. LUMBAR STENOSIS, SEVERE L1-S1 4. LOW BACK PAIN 5. LE WEAKNESS 6. LE RADICULOPATHY History of recent [id number] decompression and fusion Plan: 1. LUMBAR DEGENERATIVE SCOLIOSIS SEVERE CORONAL AND SAGITTAL DEFORMITY; NEUROGENIC CLAUDICATION; LUMBAR STENOSIS, SEVERE L1-S1; LOW BACK PAIN; LE WEAKNESS; LE RADICULOPATHY -recent spine surgery performed , 01/19/[id number] decompression and fusion. I did discuss the findings of imaging and exam with my attending, Dr. Rahman. At this time we are not recommending any emergent/urgent orthopedic surgical intervention. We are recommending conservative measures from an orthopedic standpoint. Incision appears to be well-healed over the thoracolumbar spine. Continue PT/OT daily. Medicine and cardiology seeing patient for orthostatic hypotension. Patient to follow-up in the outpatient setting with Dr. Rahman for postop visits. We will defer the rest of the management during patient stay to cardiology and primary medical team. Orthopedics will be available as needed to see patient. Please do not hesitate to contact us for any further questions. 2. Appreciate medical management 3. Pain management -Tylenol; tramadol 4. DVT prophylaxis - mechanical 5. GI prophylaxis recs 6. PT/OT -encourage ambulation: Patient encouraged to perform gentle range of motion exercises while resting in bed 7. Encourage incentive spirometer use 8. Appreciate consult Time with Patient: Less than 30
[2024-02-07] MEDS: MIDODRINE 5 MG TAB PO SCH (16:42)
[2024-02-07] MEDS: traMADol 50 MG TAB PO PRN (22:53)
[2024-02-08] MEDS: LEVOTHYROXINE 125 MCG TAB PO SCH (05:59)
[2024-02-08] MEDS: lisinopriL 5 MG TAB PO SCH (09:15)
[2024-02-08 09:16] LABS: BUN/Creat Ratio 17.17 Ratio (12.00-20.00); Blood Urea Nitrogen 10.3 mg/dL (9.0-27.0); Calcium 8.6 mg/dL (8.7-10.3); Carbon Dioxide 23.2 mmol/L (21.6-31.8); Chloride 105 mmol/L (96-109); Glucose 98 mg/dL (70-110); Sodium 136 mmol/L (135-145)
--- NOTE | 2024-02-08 10:28 | P.PN ---
Subjective Progress Note Date: 02/08/24 This is a 73-year-old female with past medical history of hypertension, hyperlipidemia, gastroesophageal reflux disease, rheumatoid arthritis on methotrexate. 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 We have been asked to evaluate the patient for postural hypertension. Patient had thoracic/lumbar surgery done 2 weeks ago and in the postop period, patient was having orthostatic hypotension with significant change in her blood pressure readings and was taken off lisinopril. She states she continues to have the low blood pressure and has had a total of 5 falls at home and of 2 of those she passed out. She has never had a problem will with passing out or lightheadedness dizziness in the past. She denies have any shortness of breath no chest pain or pressure, no lower extremity edema no palpitations. Patient presented to the hospital due to syncopal episodes. She again is found to have orthostatic hypotension. -EKG: Sinus rhythm with no acute ST-T wave changes -Chest x-ray: No acute process. 1.2 cm left upper lobe nodule. -CTA of the chest: No PE. Trace bilateral pleural effusions. Extensive postsurgical changes in the thoracic lumbar spine fusion hardware. A large amount of fluid surrounding the visualized portions of the hardware. May represent seroma versus other etiologies. Healing left rib fractures. -Echocardiogram: EF 55 to 60%, mild mitral and tricuspid regurgitation, no pulmonary hypertension. -Laboratory studies: WBC 8.2, hemoglobin 9.2 sodium 135, potassium 4.4, creatinine 0.7, D-dimer 8.6. Troponin negative x 1. TSH 12.2 with normal free T4. -Home cardiac medications: Atorvastatin 10 mg daily, also on levothyroxine. 02/08/2024 Patient was seen and examined resting comfortably in bed. Echocardiogram with Doppler study showed normal LV systolic function with mild MR and mild TR. Overall she is feeling a bit better. She has been up out of bed but has not ambulated much. Orthostatic blood pressures continue to be significantly abnormal but unfortunately due to supine hypertension midodrine has been held by nursing staff. Objective - Vital Signs Vital signs: Vital Signs Temp 98.6 F 02/08/24 07:00 Pulse 67 02/08/24 07:00 Resp 15 02/08/24 07:00 BP 180/77 02/08/24 07:00 Pulse Ox 98 02/08/24 07:00 FiO2 Intake & Output 02/07/24 02/08/24 02/08/24 18:59 06:59 18:59 Intake Total 236 Balance 236 Intake: Oral 236 Other: Voiding Method Bedside Commode Bedside Commode # Voids 1 1 - Exam Gen: This is a 73-year-old female in no acute distress VS: reviewed HEENT: Head is atraumatic, normocephalic. Pupils equal, round. Sclerae is anicteric. NECK: Supple. No JVD. LUNGS: Clear to auscultation. No wheezes or rhonchi. No intercostal retractions. HEART: Regular rate and rhythm. No murmur. ABDOMEN: Soft No tenderness. EXTREMITIES: No pedal edema. No calf tenderness. NEUROLOGICAL: Patient is awake, alert and oriented x3. - Labs CBC & Chem 7: 02/07/24 05:01 02/08/24 03:56 Labs: Abnormal Lab Results - Last 24 Hours (Table) 02/08/24 Range/Units 03:56 Calcium 8.6 L (8.7-10.3) mg/dL Microbiology - Last 24 Hours (Table) 02/06/24 18:36 Blood Culture - Preliminary Blood Assessment and Plan Assessment: Syncopal episodes and falls secondary to orthostatic hypotension following spin al surgery History of hypertension Hyperlipidemia Gastroesophageal reflux disease Rheumatoid arthritis on methotrexate Remote history of tobacco use, quit 15 years ago Plan: From cardiology's perspective continue to recommend precautions with changing from sitting to standing position, pump feet before rising, slowly stand, stand prior to walking, and use compression socks. Encourage adequate hydration. Administer midodrine 5 mg 3 times daily as ordered. We will add lisinopril 5 mg for supine hypertension. Expect patient to notice improvement over her symptoms and blood pressure to stabilize once healed from recent surgery. [employer] note has been reviewed, I agree with a documented findings and plan of care. Patient was seen and examined.
[2024-02-08 14:34] VITALS: BP 186/76; PULSE 66; RESP 14; TEMP 98.8
== END 2024-02-08 16:30 | disposition home or self-care (01) | DRG 312 ==
LOC: EC 09:56 → 6NMEDSUR 14:00 → OBSVTOIN 14:01 → 6NMEDSUR 15:52
PROVIDERS: ADMIT Internal Medicine; ATTEND Internal Medicine
DX: I95.1 Orthostatic hypotension (principal); E87.1 Hypo-osmolality and hyponatremia; E03.9 Hypothyroidism, unspecified; D64.9 Anemia, unspecified; E86.1 Hypovolemia; M81.0 Age-related osteoporosis without current pathological fracture; R91.1 Solitary pulmonary nodule; F32.A Depression, unspecified; M48.07 Spinal stenosis, lumbosacral region; M48.062 Spinal stenosis, lumbar region with neurogenic claudication; M19.90 Unspecified osteoarthritis, unspecified site; E78.5 Hyperlipidemia, unspecified; I08.1 Rheumatic disorders of both mitral and tricuspid valves; K21.9 Gastro-esophageal reflux disease without esophagitis; I10 Essential (primary) hypertension; M41.56 Other secondary scoliosis, lumbar region; M51.16 Intervertebral disc disorders with radiculopathy, lumbar region; M06.9 Rheumatoid arthritis, unspecified; Z79.631 Long term (current) use of antimetabolite agent; Z87.891 Personal history of nicotine dependence; Z79.83 Long term (current) use of bisphosphonates; Z79.890 Hormone replacement therapy; Z98.1 Arthrodesis status; Z90.710 Acquired absence of both cervix and uterus; Z96.1 Presence of intraocular lens; Z98.42 Cataract extraction status, left eye; Z98.41 Cataract extraction status, right eye; Z86.14 Personal history of Methicillin resistant Staphylococcus aureus infection
CPT/HCPCS: 36415; 71046; 71275; 80048; 80053; 82533; 83605; 84145; 84439; 84443; 84484; 85025; 85379; 85610; 85652; 85730; 86140; 87040; 93005; 93306; 96374; 96375; 99285

== ENCOUNTER → 2024-05-29 | Outpatient (CLI) | payer MEDICARE ==
--- NOTE | 2024-05-30 07:49 | XR ---
EXAMINATION TYPE: XR knee complete RT DATE OF EXAM: 05/29/2024 4:26 PM COMPARISON: None CLINICAL INDICATION: Female, 73 years old with history of M25.561; PHH, pain TECHNIQUE: XR knee complete RT 3 views submitted. FINDINGS: No evidence of any acute osseous pathology, soft tissue swelling, or joint effusion is no roque. Tricompartmental osteophyte formation involving the femoral condyles, tibial plateau and patella . Mild joint space narrowing. IMPRESSION: 1. No acute osseous pathology. 2. Moderate tricompartmental osteoarthritic changes. [facility], , 05/30/2024 7:47 AM
== END | disposition home or self-care (01) ==
LOC: RADXRMAIN 15:52
PROVIDERS: ATTEND Internal Medicine Geriatric Medicine
DX: M17.11 Unilateral primary osteoarthritis, right knee (principal)